=== PATIENT | female | born 1940 | race Caucasian/White ===

== ENCOUNTER 2021-03-01 06:51 | Inpatient (IN) ==
--- NOTE | 2021-03-01 07:12 | Emergency Department Note ---
Impression & Plan GI bleed, Acute blood loss anemia, Acute pulmonary embolism, Elevated troponin ED Provider Note NAME: FARZANEH OTERO AGE: 80 SEX: F : 1940 ARRIVES VIA: Ambulance INFORMANT: Patient ED PROVIDER(S): Dennis Sánchez DO CHIEF COMPLAINT: lightheaded and near syncope HPI: Patient is a 80-year-old female who presents tp the ER for near syncopal event. Patient notes that she got in the shower and got very warm and hot. She felt lightheaded. She fell to the ground/lowered her self down. She did not hit her head or neck. No chest pain or shortness of breath. No nausea, vomiting or diarrhea. No dysuria, urgency, or frequency. No other exacerbating or remitting factors. She does note that this happened yesterday as well while in the shower. She has been getting shortness of breath with exertion for the previous 6 months and has been getting worse. She does not remember ever having a new murmur. ROS: See above HPI for pertinent positives & negatives. A total of 10 systems reviewed and were otherwise negative. PAST MEDICAL HISTORY:See Below PAST SURGICAL HISTORY:See Below FAMILY HISTORY:See Below SOCIAL HISTORY:See Below HOME MEDICATIONS:See Below ALLERGIES:See Below VITALS:See Below PHYSICAL EXAMINATION: GENERAL: Sitting up in bed, alert, well appearing, well nourished, no distress, non-toxic EYE EXAM: normal conjunctiva. PERRL and EOM's grossly intact. OROPHARYNX: no exudate, no erythema, lips, buccal mucosa, and tongue normal and mucous membranes are moist NECK: supple, no nuchal rigidity, no adenopathy, non-tender LUNGS: Clear to auscultation. Normal chest wall mechanics HEART: +YEFRI, S1 normal and S2 normal ABDOMEN: abdomen soft, non-tender, normo-active bowel sounds, no masses, no rebound or guarding. RECTAL: hem + stool UPPER EXTREMITIES: upper extremities are grossly normal. LOWER EXTREMITIES: No pitting edema. NEURO EXAM: Normal sensorium, cranial nerves II-XII grossly intact, normal speech, no gross weakness of arms, no gross weakness of legs. MEDICAL DECISION MAKING: Patient is a 80-year-old female who presents the ER for the above-stated complaint. IV was established blood work was obtained. Labs show no significant leukocytosis but a significant anemia at 7. Unable to find previous hemoglobins. Platelets were low at 92[place] [id number]. BMP with slightly elevated chloride. Troponin was elevated at 1.6. TSH was elevated. UA was clean. Patient was rectally heme positive. CT of the chest was performed and showed PEs. With the heme positive stool and current PEs. Did discuss with the hospitalist. Held on anticoagulation at this time as she will likely need further work-up may benefit from an IVC filter. Patient was updated bedside. Discussed with hospitalist admitted for further work-up. Patient was ordered and given 2 units PRBCs while in the ER. Will defer to the hospitalist for treatment of the PEs as I feel this. At this point to improve the hemoglobin emergently with transfusion prior to placing on any blood thinne rs with a hemoglobin at 7 Triage Nursing notes reviewed. Limited review of prior medical records performed Vital Signs: reviewed and remarkable for no significant abnormalities Differential diagnosis: Differential diagnosis includes etiologies such as vasovagal event, infection, hypoglycemia, electrolyte abnormalities, cardiac sources, intracerebral event, toxicologic, neurologic, as well as others were entertained. ER treatment provided: See below Diagnostics interpreted by me: ECG: Sinus rhythm rate 72 Normal axis No PVCs QTC 435 Cardiac Monitoring: An order was placed for continuous cardiac monitoring. The monitor shows a rate of 70 with sinus rhythm. Laboratory studies: As stated above and show below. Imaging studies: CT PE shows PEs CT abdomen pelvis shows likely metastatic disease Consultation(s): Discussed with Dr. Nichole for further evaluation Procedures: none Critical Care: I have personally spent 33 minutes of critical care time in the direct management of this patient. This includes bedside care, interpretation of diagnostic studies, and testing, discussion with consultants, patient, and family members, and other required patient management activities. This 33 minutes is in excess of all separately billable procedures. Past Med/Surg History Medical History (Updated 03/11/21 @ 09:30 by JUAN Caceres) Altered mental status CKD (chronic kidney disease) stage 3, GFR 30-59 ml/min Dehydration Hyperlipidemia Hypothyroidism (acquired) Hypoxia Palliative care encounter Weakness Surgical History Hx of cataract surgery S/P laser trabeculoplasty of eye Social History Smoking Status: Never smoker Hx Alcohol Use: Yes Hx Substance Use: No Preferred Language: Maltese Communication Ability: Effective marital status: Current Living Situation: Spouse How many Children do You have: 3 Feels Safe at Home: Yes Assistive Devices: Oxygen - Continuous Allergies Allergies Allergy/AdvReac Type Severity Reaction Status Date / Time No Known Allergies Allergy Unverified 03/01/21 07:49 Home Meds Home Medications Medication Instructions Recorded Confirmed B360 Probiotic 1 cap PO QAM 03/01/21 03/01/21 cholecalciferol (vitamin D3) 50 50 mcg PO QAM 03/01/21 03/01/21 mcg (2,000 unit) capsule (Vitamin D3) levothyroxine 75 mcg tablet 75 mcg PO DAILYBB 03/01/21 03/01/21 (Synthroid) lorazepam 1 mg tablet (Ativan) 1 mg SUBLINGUAL UD 03/01/21 03/01/21 pravastatin 10 mg tablet 10 mg PO HS 03/01/21 03/01/21 Results & Data (ED) Vital Signs Vital Signs - 24 hr 03/01/21 06:50 03/01/21 07:11 03/01/21 07:30 Temperature 37.0 C Temperature Source Oral Pulse Rate 71 70 73 Pulse Rate from SpO2 Sensor 70 72 Pulse Rhythm Regular Pulse Strength Normal Respiratory Rate 17 18 20 Respiratory Effort / Characteristics Non-Labored Spontaneous Respiratory Depth Normal Respiratory Pattern Regular Blood Pressure 126/77 126/77 149/72 H Blood Pressure Mean 93 93 97 Blood Pressure Position Lying Pulse Oximetry 99 99 99 Oxygen Delivery Method Room Air Sepsis Recent Fever Within 48 Hours No Sepsis New/Unexplained Change in Mental Status N/A Sepsis Action Taken by Nursing No Action Required 03/01/21 08:00 03/01/21 08:30 03/01/21 09:00 Temperature Temperature Source Pulse Rate 69 69 72 Pulse Rate from SpO2 Sensor 68 69 73 Pulse Rhythm Pulse Strength Respiratory Rate 16 18 16 Respiratory Effort / Characteristics Respiratory Depth Respiratory Pattern Blood Pressure 135/61 139/66 128/60 Blood Pressure Mean 85 90 82 Blood Pressure Position Pulse Oximetry 99 99 99 Oxygen Delivery Method Sepsis Recent Fever Within 48 Hours Sepsis New/Unexplained Change in Mental Status Sepsis Action Taken by Nursing 03/01/21 09:30 03/01/21 09:52 03/01/21 10:00 Temperature Temperature Source Pulse Rate 69 76 72 Pulse Rate from SpO2 Sensor 71 75 71 Pulse Rhythm Pulse Strength Respiratory Rate 18 13 16 Respiratory Effort / Characteristics Respiratory Depth Respiratory Pattern Blood Pressure 135/66 138/67 137/63 Blood Pressure Mean 89 90 87 Blood Pressure Position Pulse Oximetry 99 99 99 Oxygen Delivery Method Sepsis Recent Fever Within 48 Hours Sepsis New/Unexplained Change in Mental Status Sepsis Action Taken by Nursing 03/01/21 10:31 Temperature Temperature Source Pulse Rate 80 Pulse Rate from SpO2 Sensor 80 Pulse Rhythm Pulse Strength Respiratory Rate 19 Respiratory Effort / Characteristics Respiratory Depth Respiratory Pattern Blood Pressure 131/75 Blood Pressure Mean 93 Blood Pressure Position Pulse Oximetry 99 Oxygen Delivery Method Sepsis Recent Fever Within 48 Hours Sepsis New/Unexplained Change in Mental Status Sepsis Action Taken by Nursing Laboratory Data Result diagrams: 03/11/21 05:19 03/11/21 05:19 Lab Results 03/01/21 03/01/21 03/01/21 Range/Units 08:10 08:10 08:10 WBC 8.77 (4.8-10.8) K/uL RBC 2.34 L (4.2-5.4) M/uL Hgb 7.0 L (12.0-16.0) g/dL Hct 21.7 L (37-47) % MCV 92.7 (80-100) fL MCH 29.9 (25-34) pg MCHC 32.3 (32-36) g/dL RDW Std Deviation 48.5 H (36.4-46.3) fL RDW Coeff of Garrett 14.8 H (11.5-14.5) % Plt Count 92 L (130-400) K/uL MPV 9.9 (7.4-10.4) fL Immature Gran % (Auto) 0.2 % Neut % (Auto) 81.2 % Lymph % (Auto) 10.5 % [place] % (Auto) 7.3 % Eos % (Auto) 0.7 % Baso % (Auto) 0.1 % Neut # (Auto) 7.12 H (1.4-6.5) K/uL Lymph # (Auto) 0.92 L (1.2-3.4) K/uL [place] # (Auto) 0.64 H (0.11-0.59) K/uL Eos # (Auto) 0.06 (0-0.5) K/uL Baso # (Auto) 0.01 (0-0.2) K/uL Immature Gran # (Auto) 0.02 (0.00-0.02) K/uL Platelet Estimate Decreased L (Normal) Polychromasia 1+ PT 15.6 H Cancelled (9.0-12.0) Seconds INR 1.6 H Cancelled (0.9-1.1) D-Dimer > 00531 H* (0-500) ug/L FEU Sodium (136-145) mmol/L Potassium (3.5-5.1) mmol/L Chloride (98-107) mmol/L Carbon Dioxide (21-32) mmol/L Anion Gap (3-11) BUN (7-18) mg/dl Creatinine (0.6-1.2) mg/dl Est Cr Clr Drug Dosing ml/min Est GFR ( Amer) ml/min Est GFR (Non-Af Amer) ml/min BUN/Creatinine Ratio (10-20) Glucose (70-99) mg/dl Calcium (8.5-10.1) mg/dl Magnesium (1.8-2.4) mg/dl Total Bilirubin (0.2-1) mg/dl AST (15-37) U/L ALT (12-78) U/L Alkaline Phosphatase (45-117) U/L Troponin I (0-0.045) ng/ml Total Protein (6.4-8.2) gm/dl Albumin (3.4-5.0) gm/dl Globulin (2.5-4.0) gm/dl Albumin/Globulin Ratio (0.9-2) TSH (0.300-4.500) uIu/ml Free T4 (0.8-1.6) ng/dl Urine Color Urine Appearance (Clear) Urine pH (4.5-7.5) Ur Specific [place] (1.000-1.030) Urine Protein (Negative) Urine Glucose (UA) (Negative) Urine Ketones (Negative) Urine Blood (Negative) Urine Nitrite (Negative) Urine Bilirubin (Negative) Urine Urobilinogen (Negative) Ur Leukocyte Esterase (Negative) Urine WBC (Auto) (0-5) /hpf Urine RBC (Auto) (0-4) /hpf U Hyaline Cast (Auto) (0-5) /lpf U Epithel Cells (Auto) (0-5) /lpf Urine Bacteria (Auto) (Negative) COVID-19 Eval Order SARS-CoV-2 (PCR) (Negative) Blood Type Antibody Screen Crossmatch 03/01/21 03/01/21 03/01/21 Range/Units 08:10 09:20 09:20 WBC (4.8-10.8) K/uL RBC (4.2-5.4) M/uL Hgb (12.0-16.0) g/dL Hct (37-47) % MCV (80-100) fL MCH (25-34) pg MCHC (32-36) g/dL RDW Std Deviation (36.4-46.3) fL RDW Coeff of Garrett (11.5-14.5) % Plt Count (130-400) K/uL MPV (7.4-10.4) fL Immature Gran % (Auto) % Neut % (Auto) % Lymph % (Auto) % [place] % (Auto) % Eos % (Auto) % Baso % (Auto) % Neut # (Auto) (1.4-6.5) K/uL Lymph # (Auto) (1.2-3.4) K/uL [place] # (Auto) (0.11-0.59) K/uL Eos # (Auto) (0-0.5) K/uL Baso # (Auto) (0-0.2) K/uL Immature Gran # (Auto) (0.00-0.02) K/uL Platelet Estimate (Normal) Polychromasia PT (9.0-12.0) Seconds INR (0.9-1.1) D-Dimer (0-500) ug/L FEU Sodium 142 (136-145) mmol/L Potassium 5.0 (3.5-5.1) mmol/L Chloride 108 H (98-107) mmol/L Carbon Dioxide 27 (21-32) mmol/L Anion Gap 8.0 (3-11) BUN 24 H (7-18) mg/dl Creatinine 0.94 (0.6-1.2) mg/dl Est Cr Clr Drug Dosing 40.0 ml/min Est GFR ( Amer) 67.3 ml/min Est GFR (Non-Af Amer) 58.1 ml/min BUN/Creatinine Ratio 25.0 H (10-20) Glucose 95 (70-99) mg/dl Calcium 8.4 L (8.5-10.1) mg/dl Magnesium 2.3 (1.8-2.4) mg/dl Total Bilirubin 0.3 (0.2-1) mg/dl AST 48 H (15-37) U/L ALT 41 (12-78) U/L Alkaline Phosphatase 256 H (45-117) U/L Troponin I 1.640 H* (0-0.045) ng/ml Total Protein 5.8 L (6.4-8.2) gm/dl Albumin 2.7 L (3.4-5.0) gm/dl Globulin 3.1 (2.5-4.0) gm/dl Albumin/Globulin Ratio 0.9 (0.9-2) TSH 9.360 H (0.300-4.500) uIu/ml Free T4 1.15 (0.8-1.6) ng/dl Urine Color Yellow Urine Appearance Clear (Clear) Urine pH 7.0 (4.5-7.5) Ur Specific [place] 1.005 (1.000-1.030) Urine Protein Negative (Negative) Urine Glucose (UA) Negative (Negative) Urine Ketones Negative (Negative) Urine Blood Negative (Negative) Urine Nitrite Negative (Negative) Urine Bilirubin Negative (Negative) Urine Urobilinogen Negative (Negative) Ur Leukocyte Esterase 2+ H (Negative) Urine WBC (Auto) 10-30 H (0-5) /hpf Urine RBC (Auto) 0-4 (0-4) /hpf U Hyaline Cast (Auto) 0 (0-5) /lpf U Epithel Cells (Auto) >30 H (0-5) /lpf Urine Bacteria (Auto) Negative (Negative) COVID-19 Eval Order Covid19 at [facility] SARS-CoV-2 (PCR) (Negative) Blood Type Antibody Screen Crossmatch 03/01/21 03/01/21 Range/Units 09:20 10:32 WBC (4.8-10.8) K/uL RBC (4.2-5.4) M/uL Hgb (12.0-16.0) g/dL Hct (37-47) % MCV (80-100) fL MCH (25-34) pg MCHC (32-36) g/dL RDW Std Deviation (36.4-46.3) fL RDW Coeff of Garrett (11.5-14.5) % Plt Count (130-400) K/uL MPV (7.4-10.4) fL Immature Gran % (Auto) % Neut % (Auto) % Lymph % (Auto) % [place] % (Auto) % Eos % (Auto) % Baso % (Auto) % Neut # (Auto) (1.4-6.5) K/uL Lymph # (Auto) (1.2-3.4) K/uL [place] # (Auto) (0.11-0.59) K/uL Eos # (Auto) (0-0.5) K/uL Baso # (Auto) (0-0.2) K/uL Immature Gran # (Auto) (0.00-0.02) K/uL Platelet Estimate (Normal) Polychromasia PT (9.0-12.0) Seconds INR (0.9-1.1) D-Dimer (0-500) ug/L FEU Sodium (136-145) mmol/L Potassium (3.5-5.1) mmol/L Chloride (98-107) mmol/L Carbon Dioxide (21-32) mmol/L Anion Gap (3-11) BUN (7-18) mg/dl Creatinine (0.6-1.2) mg/dl Est Cr Clr Drug Dosing ml/min Est GFR ( Amer) ml/min Est GFR (Non-Af Amer) ml/min BUN/Creatinine Ratio (10-20) Glucose (70-99) mg/dl Calcium (8.5-10.1) mg/dl Magnesium (1.8-2.4) mg/dl Total Bilirubin (0.2-1) mg/dl AST (15-37) U/L ALT (12-78) U/L Alkaline Phosphatase (45-117) U/L Troponin I (0-0.045) ng/ml Total Protein (6.4-8.2) gm/dl Albumin (3.4-5.0) gm/dl Globulin (2.5-4.0) gm/dl Albumin/Globulin Ratio (0.9-2) TSH (0.300-4.500) uIu/ml Free T4 (0.8-1.6) ng/dl Urine Color Urine Appearance (Clear) Urine pH (4.5-7.5) Ur Specific [place] (1.000-1.030) Urine Protein (Negative) Urine Glucose (UA) (Negative) Urine Ketones (Negative) Urine Blood (Negative) Urine Nitrite (Negative) Urine Bilirubin (Negative) Urine Urobilinogen (Negative) Ur Leukocyte Esterase (Negative) Urine WBC (Auto) (0-5) /hpf Urine RBC (Auto) (0-4) /hpf U Hyaline Cast (Auto) (0-5) /lpf U Epithel Cells (Auto) (0-5) /lpf Urine Bacteria (Auto) (Negative) COVID-19 Eval Order SARS-CoV-2 (PCR) NEGATIVE (Negative) Blood Type A Positive Antibody Screen NEGATIVE Crossmatch See Detail Administered Medications Discontinued Medications Acetaminophen (Acetaminophen 325 Mg Tab) 650 mg PO Q6H PRN PRN Reason: Fever/pain Stop: 04/06/21 22:40 Last Admin: 03/09/21 18:24 Dose: 650 mg Documented by: [id number] Admin: 03/08/21 19:26 Dose: 650 mg Documented by: [id number] Admin: 03/08/21 10:13 Dose: 650 mg Documented by: [id number] Gadobutrol (Gadobutrol 65ml Vial) 6 ml IV ONCE ONE Stop: 03/03/21 11:45 Last Admin: 03/03/21 11:44 Dose: 6 ml Documented by: [id number] Glycopyrrolate (Glycopyrrolate 0.2 Mg/Ml Vial) 0.2 mg IV Q3H PRN PRN Reason: secretions Stop: 04/10/21 10:52 Last Admin: 03/11/21 17:24 Dose: 0.2 mg Documented by: [id number] Heparin Sodium/Dextrose (Heparin Iv Adult Wt-Based Standard *No* Bolus Protocol) 1 ea IV Q1H MORRO; Protocol Stop: 03/01/21 21:00 Last Admin: 03/01/21 17:59 Dose: Not Given Documented by: [id number] Admin: 03/01/21 17:53 Dose: Not Given Documented by: [id number] Heparin Sodium/Dextrose (Heparin 00650 Unit/500 Ml D5w) Confirm Administered Dose 25,000 units IV .STK-MED ONE Stop: 03/01/21 17:26 Last Admin: 03/01/21 18:33 Dose: Not Given Documented by: [id number] Sodium Chloride (Nss) 500 mls @ 999 mls/hr IV .Q31M MORRO Stop: 03/01/21 07:45 Last Infusion: 03/01/21 08:21 Dose: 0 mls/hr Documented by: [id number] Admin: 03/01/21 07:36 Dose: 999 mls/hr Documented by: [id number] Heparin Sodium/Dextrose (Heparin Sodium/Dextrose) 25,000 units in 500 mls @ 18 mls/hr IV .Q24H MORRO; Protocol Stop: 03/31/21 18:09 Last Titration: 03/03/21 10:29 Dose: 0 units/hr, 0 mls/hr Documented by: [id number] Cosigned by: [id number] Titration: 03/03/21 06:11 Dose: 0 units/hr, 0 mls/hr Documented by: [id number] Cosigned by: [id number] Admin: 03/02/21 20:29 Dose: 900 units/hr, 18 mls/hr Documented by: [id number] Cosigned by: [id number] Titration: 03/02/21 20:29 Dose: 900 units/hr, 18 mls/hr Documented by: [id number] Cosigned by: [id number] Titration: 03/02/21 01:04 Dose: 900 units/hr, 18 mls/hr Documented by: [id number] Cosigned by: [id number] Admin: 03/01/21 18:23 Dose: 900 units/hr, 18 mls/hr Documented by: [id number] Cosigned by: [id number] Dextrose/Lactated Ringer's (D5w And Lactated Ringers) 1,000 mls @ 60 mls/hr IV .[id number] MORRO Stop: 04/02/21 07:14 Last Infusion: 03/03/21 16:16 Dose: 0 mls/hr Documented by: [id number] Admin: 03/03/21 08:37 Dose: 60 mls/hr Documented by: [id number] Sodium Chloride (Nss 1000ml) 500 mls @ 999 mls/hr IV .Q31M ONE Stop: 03/03/21 09:37 Last Infusion: 03/03/21 09:46 Dose: 0 mls/hr Documented by: [id number] Admin: 03/03/21 09:15 Dose: 999 mls/hr Documented by: [id number] Heparin Sodium/Dextrose (Heparin Sodium/Dextrose) 25,000 units in 500 mls @ 18 mls/hr IV .Q24H MORRO; Protocol Stop: 04/02/21 09:59 Last Titration: 03/11/21 09:10 Dose: 0 units/hr, 0 mls/hr Documented by: [id number] Cosigned by: [id number] Titration: 03/11/21 08:59 Dose: 900 units/hr, 18 mls/hr Documented by: [id number] Cosigned by: [id number] Titration: 03/11/21 07:07 Dose: 900 units/hr, 18 mls/hr Documented by: [id number] Cosigned by: [id number] Titration: 03/10/21 22:30 Dose: 900 units/hr, 18 mls/hr Documented by: [id number] Cosigned by: [id number] Titration: 03/10/21 19:22 Dose: 900 units/hr, 18 mls/hr Documented by: [id number] Cosigned by: [id number] Titration: 03/10/21 19:22 Dose: 900 units/hr, 18 mls/hr Documented by: [id number] Cosigned by: [id number] Admin: 03/10/21 14:55 Dose: 900 units/hr, 18 mls/hr Documented by: [id number] Cosigned by: [id number] Titration: 03/09/21 03:54 Dose: 0 units/hr, 0 mls/hr Documented by: [id number] Cosigned by: [id number] Admin: 03/08/21 00:26 Dose: 1,000 units/hr, 20 mls/hr Documented by: [id number] Cosigned by: [id number] Titration: 03/07/21 23:09 Dose: 1,000 units/hr, 20 mls/hr Documented by: [id number] Cosigned by: [id number] Titration: 03/07/21 19:08 Dose: 1,000 units/hr, 20 mls/hr Documented by: [id number] Cosigned by: [id number] Titration: 03/07/21 14:19 Dose: 1,000 units/hr, 20 mls/hr Documented by: [id number] Cosigned by: [id number] Admin: 03/06/21 21:17 Dose: 950 units/hr, 19 mls/hr Documented by: [id number] Cosigned by: [id number] Titration: 03/06/21 20:12 Dose: 950 units/hr, 19 mls/hr Documented by: [id number] Cosigned by: [id number] Titration: 03/06/21 19:09 Dose: 950 units/hr, 19 mls/hr Documented by: [id number] Cosigned by: [id number] Titration: 03/06/21 07:08 Dose: 950 units/hr, 19 mls/hr Documented by: [id number] Cosigned by: [id number] Titration: 03/05/21 19:22 Dose: 950 units/hr, 19 mls/hr Documented by: [id number] Cosigned by: [id number] Admin: 03/05/21 17:53 Dose: 950 units/hr, 19 mls/hr Documented by: [id number] Cosigned by: [id number] Titration: 03/05/21 17:17 Dose: 950 units/hr, 19 mls/hr Documented by: [id number] Cosigned by: [id number] Admin: 03/05/21 11:54 Dose: Not Given Documented by: [id number] Titration: 03/04/21 19:17 Dose: 950 units/hr, 19 mls/hr Documented by: [id number] Cosigned by: [id number] Admin: 03/04/21 14:58 Dose: 950 units/hr, 19 mls/hr Documented by: [id number] Cosigned by: [id number] Titration: 03/04/21 13:11 Dose: 950 units/hr, 19 mls/hr Documented by: [id number] Cosigned by: [id number] Titration: 03/04/21 08:19 Dose: 950 units/hr, 19 mls/hr Documented by: [id number] Cosigned by: [id number] Titration: 03/04/21 07:14 Dose: 950 units/hr, 19 mls/hr Documented by: [id number] Cosigned by: [id number] Titration: 03/03/21 18:59 Dose: 950 units/hr, 19 mls/hr Documented by: [id number] Cosigned by: [id number] Titration: 03/03/21 16:52 Dose: 950 units/hr, 19 mls/hr Documented by: [id number] Cosigned by: [id number] Admin: 03/03/21 10:32 Dose: 900 units/hr, 18 mls/hr Documented by: [id number] Cosigned by: [id number] Ceftriaxone Sodium 1,000 mg/ (Dextrose) 50 mls @ 100 mls/hr IV Q24H MORRO; Protoc ol Stop: 03/08/21 14:59 Last Infusion: 03/07/21 16:10 Dose: 0 mls/hr Documented by: [id number] Admin: 03/07/21 15:29 Dose: 100 mls/hr Documented by: [id number] Infusion: 03/06/21 16:40 Dose: 0 mls/hr Documented by: [id number] Admin: 03/06/21 15:59 Dose: 100 mls/hr Documented by: [id number] Piperacillin Sod/Tazobactam (Sod 4.5 gm/ Dextrose) 120 mls @ 200 mls/hr IV NOW ONE; Protocol Stop: 03/08/21 15:05 Last Infusion: 03/08/21 15:33 Dose: 0 mls/hr Documented by: [id number] Admin: 03/08/21 14:33 Dose: 200 mls/hr Documented by: [id number] Piperacillin Sod/Tazobactam (Sod 4.5 gm/ Dextrose) 120 mls @ 30 mls/hr IV Q8H MORRO; Protocol Stop: 03/10/21 19:59 Last Admin: 03/10/21 13:12 Dose: Not Given Documented by: [id number] Infusion: 03/10/21 08:16 Dose: 0 mls/hr Documented by: [id number] Admin: 03/10/21 04:45 Dose: 30 mls/hr Documented by: [id number] Infusion: 03/10/21 00:52 Dose: 0 mls/hr Documented by: [id number] Admin: 03/09/21 20:03 Dose: 30 mls/hr Documented by: [id number] Infusion: 03/09/21 16:02 Dose: 0 mls/hr Documented by: [id number] Admin: 03/09/21 11:55 Dose: 30 mls/hr Documented by: [id number] Infusion: 03/09/21 08:15 Dose: 0 mls/hr Documented by: [id number] Admin: 03/09/21 03:54 Dose: 30 mls/hr Documented by: [id number] Infusion: 03/08/21 22:59 Dose: 0 mls/hr Documented by: [id number] Admin: 03/08/21 19:26 Dose: 30 mls/hr Documented by: [id number] Sodium Chloride (Nss 1000ml) 1,000 mls @ 80 mls/hr IV .[id number] MORRO Stop: 04/09/21 12:14 Last Admin: 03/12/21 07:39 Dose: Not Given Documented by: [id number] Infusion: 03/12/21 07:39 Dose: 0 mls/hr Documented by: [id number] Admin: 03/11/21 19:34 Dose: 80 mls/hr Documented by: [id number] Infusion: 03/11/21 19:34 Dose: 80 mls/hr Documented by: [id number] Infusion: 03/11/21 11:25 Dose: 80 mls/hr Documented by: [id number] Infusion: 03/11/21 08:36 Dose: 0 mls/hr Documented by: [id number] Infusion: 03/11/21 04:37 Dose: 80 mls/hr Documented by: [id number] Infusion: 03/11/21 03:38 Dose: 0 mls/hr Documented by: [id number] Admin: 03/11/21 03:37 Dose: 80 mls/hr Documented by: [id number] Infusion: 03/11/21 02:54 Dose: 80 mls/hr Documented by: [id number] Infusion: 03/10/21 21:00 Dose: 80 mls/hr Documented by: [id number] Infusion: 03/10/21 20:00 Dose: 0 mls/hr Documented by: [id number] Admin: 03/10/21 13:23 Dose: 80 mls/hr Documented by: [id number] Potassium Chloride (K Fausto / Wtr) 10 meq in 100 mls @ 100 mls/hr IV Q1H MORRO Stop: 03/10/21 14:29 Last Infusion: 03/10/21 15:43 Dose: 0 mls/hr Documented by: [id number] Admin: 03/10/21 14:40 Dose: 100 mls/hr Documented by: [id number] Infusion: 03/10/21 14:24 Dose: 100 mls/hr Documented by: [id number] Admin: 03/10/21 13:24 Dose: 100 mls/hr Documented by: [id number] Metronidazole (Flagyl) 500 mg in 100 mls @ 100 mls/hr IV Q8H MORRO Stop: 03/12/21 12:29 Last Infusion: 03/11/21 04:37 Dose: 0 mls/hr Documented by: [id number] Admin: 03/11/21 03:37 Dose: 100 mls/hr Documented by: [id number] Infusion: 03/10/21 21:04 Dose: 0 mls/hr Documented by: [id number] Admin: 03/10/21 20:04 Dose: 100 mls/hr Documented by: [id number] Infusion: 03/10/21 15:42 Dose: 0 mls/hr Documented by: [id number] Admin: 03/10/21 14:41 Dose: 100 mls/hr Documented by: [id number] Vancomycin HCl 1,250 mg/ (Sodium Chloride) 275 mls @ 200 mls/hr IV NOW STA Stop: 03/10/21 14:32 Last Infusion: 03/10/21 15:57 Dose: 0 mls/hr Documented by: [id number] Admin: 03/10/21 14:41 Dose: 200 mls/hr Documented by: [id number] Cefepime HCl 2,000 mg/ Syringe 20 mls @ 5 mls/min IV DAILY@1400 [facility]RO Stop: 03/12/21 13:59 Last Admin: 03/10/21 14:41 Dose: 5 mls/min Documented by: [id number] Vancomycin HCl 1,000 mg/ (Sodium Chloride) 270 mls @ 200 mls/hr IV DAILY@0800 [facility]RO; Protocol Stop: 03/13/21 07:29 Last Infusion: 03/11/21 10:25 Dose: 0 mls/hr Documented by: [id number] Admin: 03/11/21 08:35 Dose: 200 mls/hr Documented by: [id number] Lorazepam (Ativan) 1 mg in 2 mls @ 2 mls/min IV Q6H [facility] Stop: 04/10/21 10:59 Last Admin: 03/12/21 16:35 Dose: 2 mls/min Documented by: [id number] Admin: 03/12/21 11:13 Dose: 2 mls/min Documented by: [id number] Admin: 03/12/21 05:35 Dose: 2 mls/min Documented by: [id number] Admin: 03/11/21 23:32 Dose: 2 mls/min Documented by: [id number] Admin: 03/11/21 17:11 Dose: 2 mls/min Documented by: [id number] Admin: 03/11/21 11:15 Dose: 2 mls/min Documented by: [id number] Ioversol (Optiray 320 125ml) 115 ml IV ONCE ONE Stop: 03/01/21 09:17 Last Admin: 03/01/21 09:16 Dose: 115 ml Documented by: [id number] Ioversol (Optiray 320 125ml) 120 ml IV ONCE ONE Stop: 03/03/21 07:17 Last Admin: 03/03/21 07:16 Dose: 120 ml Documented by: [id number] Levothyroxine Sodium (Levothyroxine Sodium 75 Mcg Tablet) 75 mcg PO DAILYBB [facility] Stop: 04/01/21 06:29 Last Admin: 03/11/21 03:38 Dose: Not Given Documented by: [id number] Admin: 03/10/21 06:23 Dose: 75 mcg Documented by: [id number] Admin: 03/09/21 05:46 Dose: 75 mcg Documented by: [id number] Admin: 03/08/21 05:55 Dose: 75 mcg Documented by: [id number] Admin: 03/07/21 05:07 Dose: 75 mcg Documented by: [id number] Admin: 03/06/21 05:09 Dose: 75 mcg Documented by: [id number] Admin: 03/05/21 06:33 Dose: 75 mcg Documented by: [id number] Admin: 03/04/21 07:56 Dose: 75 mcg Documented by: [id number] Admin: 03/03/21 06:30 Dose: Not Given Documented by: [id number] Admin: 03/02/21 06:25 Dose: 75 mcg Documented by: [id number] Miscellaneous (Pending Order [Heparin Drip]) 1 ea N/A Q1H [facility] Stop: 03/31/21 15:59 Last Admin: 03/01/21 18:16 Dose: Not Given Documented by: [id number] Admin: 03/01/21 17:59 Dose: Not Given Documented by: [id number] Morphine Sulfate (Morphine Sulfate 2 Mg/Ml Carp) 2 mg IV Q1H PRN PRN Reason: Pain or air hunger Stop: 03/25/21 10:52 Last Admin: 03/12/21 20:57 Dose: 2 mg Documented by: [id number] Admin: 03/12/21 17:59 Dose: 2 mg Documented by: [id number] Admin: 03/12/21 16:35 Dose: 2 mg Documented by: [id number] Admin: 03/11/21 15:07 Dose: 2 mg Documented by: [id number] Oxycodone HCl (Oxycodone Hcl Ir 5 Mg Tab (Immediate Release)) 5 mg PO Q4H PRN PRN Reason: Pain Stop: 03/21/21 22:40 Last Admin: 03/08/21 23:37 Dose: 5 mg Documented by: [id number] Pravastatin Sodium (Pravastatin Sod 10 Mg Tab) 10 mg PO HS [facility] Stop: 04/02/21 20:59 Last Admin: 03/10/21 20:03 Dose: Not Given Documented by: [id number] Admin: 03/09/21 20:02 Dose: 10 mg Documented by: [id number] Admin: 03/08/21 19:26 Dose: 10 mg Documented by: [id number] Admin: 03/07/21 21:31 Dose: 10 mg Documented by: [id number] Admin: 03/06/21 21:17 Dose: 10 mg Documented by: [id number] Admin: 03/05/21 20:53 Dose: 10 mg Documented by: [id number] Admin: 03/04/21 20:21 Dose: 10 mg Documented by: [id number] Admin: 03/03/21 20:27 Dose: 10 mg Documented by: [id number] Warfarin Sodium (Warfarin Sod 5 Mg Tab) 5 mg PO NOW ONE Stop: 03/05/21 08:39 Last Admin: 03/05/21 09:33 Dose: 5 mg Documented by: [id number] Imaging Data Radiologist's Impression: Head CT 03/01/21 07:[address] DOSE: 720.23 mGy.cm HISTORY: dizzy TECHNIQUE: Multiaxial CT images of the head were performed without the use of intravenous contrast. Automated exposure control was utilized for this study. A dose lowering technique was utilized adhering to the principles of ALARA. Comparison: None. Findings: The paranasal sinuses and mastoid air cells are clear. The calvarium and skull base are intact. The ventricles and sulci are within normal limits. There is no mass, hematoma, midline shift, or acute infarct. Impression: No acute intracranial abnormality. ACT 112: Negative or not required by law. Electronically signed by: Chapin Sparrow M.D. 03/01/2021 8:30 AM Chest X-Ray 03/01/21 07:10 XR chest 1V portable INDICATION: MN ^dizzy. TECHNIQUE: Single frontal radiograph of the chest was obtained. Comparison: None available at the time of this dictation. FINDINGS: No lines and tubes are seen. The cardiomediastinal silhouette is normal. The lungs are clear. No evidence of pleural effusion or pneumothorax. IMPRESSION: No acute chest disease. ACT 112: Negative or not required by law. Electronically signed by: Azael Munoz M.D. 03/01/2021 8:19 AM Chest CTA 03/01/21 09:04 CHEST CTA for PULMONARY ARTERIES CT DOSE: HISTORY: Atypical chest pain. TECHNIQUE: Multiaxial CT images of the chest were performed following the intravenous administration of contrast to evaluate the pulmonary arteries. Maximal intensity projection images were also obtained. A dose lowering technique was utilized adhering to the principles of ALARA. COMPARISON STUDY: None. FINDINGS: No evidence for an aortic dissection. Trace right pleural effusion. No significant pericardial effusion. The heart is normal in size. Multiple filling defects seen within the segmental and subsegmental branches of the right lower lobe and right upper lobe consistent with pulmonary emboli. No evidence for right-sided heart strain. No mediastinal or hilar lymphadenopathy. Normal esophagus. Questionable small lucencies within the spine and sternum which could represent osteopenia. The central airways are patent. A 4 mm nodule within the left upper lobe on image 140. A 4 mm subpleural nodule within the right lung apex posteriorly on image 213. Small peripheral groundglass density within the right lung base on image 80. This may represent a developing pulmonary infarct. Multiple hepatic lesions concerning for metastatic disease. IMPRESSION: 1. Right-sided pulmonary emboli. 2. Small peripheral groundglass density within the right lung base which may represent a developing pulmonary infarct. 3. There are 2 subcentimeter indeterminate pulmonary nodules measure up to 4 mm. Please refer to the chart below for recommended follow-up. 4. Trace right pleural effusion. 5. Multiple hepatic lesions concerning for metastatic disease. Otherwise, please refer to the same day abdomen and pelvis CT for further evaluation of the abdominal structures. Please refer to below summary of Fleischner criteria recommendations for follow- up of incidental CT nodules (Missael Hoover, Guidelines for management of small pulmonary nodules detected on CT scans: A statement from the Fleischner Society, Radiology 237: [phone].) SOLID NODULES Solitary nodule size: <6 mm * Low risk patients: no follow-up needed * high risk patients: optional CT at 12 months Solitary nodule size: 6-8 mm * Low risk patients: follow-up at 6-12 months, then consider further follow-up at 18-24 months * high risk patients: initial follow-up CT at 6-12 months and then at 18-24 months if no change Solitary nodule size: >8 mm * either low or high risk patients - consider follow-up CT at 3 months, and/or CT-PET, and/or biopsy Multiple nodules size: <6 mm * Low risk patients: no routine follow-up * high risk patients: optional CT at 12 months Multiple nodules size: 6-8 mm * Low risk patients: follow-up at 3-6 months, then consider further follow-up at 18-24 months * high risk patients: follow-up at 3-6 months, then at 18-24 months if no change Multiple nodules size: >8 mm * Low risk patients: follow-up at 3-6 months, then consider further follow-up at 18-24 months * high risk patients: follow-up at 3-6 months, then at 18-24 months if no change Note: newly detected indeterminate nodule in persons 35 years of age or older. * Low risk patients: minimal or absent history of smoking and/or other known risk factors * high risk patients: history of smoking or of other known risk factors (e.g. first degree relative with lung cancer, or exposure to asbestos, radon, uranium) * if a nodule up to 8 mm is partly solid or is ground glass further follow-up is required after 24 months to exclude possible slow growing adenocarcinoma (RIYA ) SUBSOLID NODULES Solitary pure ground-glass nodule * nodule size <6 mm - no CT follow-up required * nodule size >=6 mm - follow-up CT at 6-12 months, then every 2 years until 5 years Solitary part-solid nodule * nodule size <6 mm - no CT follow-up required * nodule size >=6 mm - follow-up CT at 3-6 months. If unchanged, and solid component remains <6 mm, then annual follow-up for 5 years Multiple subsolid nodules * nodule size <6 mm - follow-up CT at 3-6 months, consider further follow-up at 2 and 4 years if stable * nodule size >=6 mm - follow-up CT at 3-6 months, subsequent management based on the most suspicious nodule(s) ACT 112: Negative or not required by law. Electronically signed by: Chapin Sparrow M.D. 03/01/2021 10:03 AM Abdomen/Pelvis CT 03/01/21 09:29 CT abd pelvis IV con only CLINICAL INDICATION: MN ^[place] [id number]. TECHNIQUE: Helical axial images of the abdomen and pelvis were obtained and displayed. Automated dose lowering techniques and/or adjustment according to patient size were utilized for this exam. This exam was performed with intravenous contrast. COMPARISON: None available at the time of this dictation. FINDINGS: Lower chest: No acute abnormality Liver: Multiple hypodense liver lesions are seen. Gallbladder and biliary tree: No calcified gallstones. Normal caliber wall. No intra- or extrahepatic biliary ductal dilation. Pancreas: Unremarkable, no focal lesions. Spleen: A tiny wedge-shaped hypodensity in the spleen is compatible with infarct. Adrenals: Unremarkable. Kidneys and ureters: Nonobstructive nephrolithiasis is seen. Bladder: Limited evaluation due to underdistention. Reproductive organs: A calcified fibroid is incidentally noted. Bowel: The appendix is normal. Lymph nodes Retroperitoneal: Unremarkable. Mesenteric: Unremarkable. Pelvic: Unremarkable. Peritoneum: A small amount of free fluid is in the pelvis. Vessels: Atherosclerotic calcifications are seen. Abdominal wall: Unremarkable. Bones: There is bilateral pars defect at L5-S1 with grade 2 anterolisthesis. No sclerotic or lytic lesions are seen. IMPRESSION: 1. Innumerable hypodensities in the liver are compatible with metastatic disease with unknown primary. 2. Tiny splenic infarct. ACT 112: Negative or not required by law. Electronically signed by: Azael Munoz M.D. 03/01/2021 9:59 AM Discharge Plan Visit Data Chief Complaint: Dizziness Stated Complaint: LIGHTHEADED;WEAKNESS;FALL;BILAT FOOT PAIN ED Provider: Dennis Sánchez Discharge Problem: GI bleed, Acute blood loss anemia, Acute pulmonary embolism, Elevated troponin Patient Disposition: Admitted As Inpatient Discharge Instructions Interventions: ED Discharge Assessment Last Done: 03/01/21 19:59 Discharge Problem: GI bleed Qualifiers: GI bleed type/associated pathology: unspecified gastrointestinal hemorrhage type Qualified Code(s): K92.2 - Gastrointestinal hemorrhage, unspecified Acute pulmonary embolism Qualifiers: Pulmonary embolism type: unspecified Acute cor pulmonale presence: unspecified Qualified Code(s): I26.99 - Other pulmonary embolism without acute cor pulmonale
[2021-03-01] MEDS ORDERED: SODIUM CHLORIDE 0.9% 500 ML IV SCH (07:15)
--- NOTE | 2021-03-01 08:21 | XRay Report ---
XR chest 1V portable INDICATION: MN ^dizzy. TECHNIQUE: Single frontal radiograph of the chest was obtained. Comparison: None available at the time of this dictation. FINDINGS: No lines and tubes are seen. The cardiomediastinal silhouette is normal. The lungs are clear. No evid ence of pleural effusion or pneumothorax. IMPRESSION: No acute chest disease. ACT 112: Negative or not required by law. Electronically signed by: Azael Munoz M.D. 03/01/2021 8:19 AM
--- NOTE | 2021-03-01 08:31 | CT Scan Report ---
HEAD CT NONCONTRAST CT DOSE: 720.23 mGy.cm HISTORY: dizzy TECHNIQUE: Multiaxial CT images of the head were performed without the use of intravenous contrast. A utomated exposure control was utilized for this study. A dose lowering technique was utilized adheri ng to the principles of ALARA. Comparison: None. Findings: The paranasal sinuses and mastoid air cells are clear. The calvarium and skull base are int act. The ventricles and sulci are within normal limits. There is no mass, hematoma, midline shift, or acute infarct. Impression: No acute intracranial abnormality. ACT 112: Negative or not required by law. Electronically signed by: Chapin Sparrow M.D. 03/01/2021 8:30 AM
[2021-03-01 08:35] LABS: Hematocrit (blood only) 21.7 % (37-47); Mean Corpuscular Hemoglobin 29.9 pg (25-34); Mean Corpuscular Hgb Conc 32.3 g/dL (32-36); Mean Corpuscular Volume 92.7 fL (80-100); RDW Coefficient of Variation 14.8 % (11.5-14.5); RDW Standard Deviation 48.5 fL (36.4-46.3); Red Blood Count 2.34 M/uL (4.2-5.4); White Blood Count 8.77 K/uL (4.8-10.8)
[2021-03-01 08:37] LABS: INR 1.6 (0.9-1.1); Prothrombin Time 15.6 Seconds (9.0-12.0)
[2021-03-01 08:41] LABS: Albumin Level 2.7 gm/dl (3.4-5.0); Calcium 8.4 mg/dl (8.5-10.1); Est GFR (African American) 67.3 ml/min; Est GFR (Non-African American) 58.1 ml/min; Magnesium 2.3 mg/dl (1.8-2.4)
[2021-03-01 08:44] LABS: Basophils # (auto) 0.01 K/uL (0-0.2); Basophils % (auto) 0.1 %; Eosinophils # (auto) 0.06 K/uL (0-0.5); Eosinophils % (auto) 0.7 %; Immature Granulocytes # (auto) 0.02 K/uL (0.00-0.02); Immature Granulocytes % (auto) 0.2 %; Lymphocytes # (auto) 0.92 K/uL (1.2-3.4); Lymphocytes % (auto) 10.5 %; Mean Platelet Volume 9.9 fL (7.4-10.4); Monocytes # (auto) 0.64 K/uL (0.11-0.59); Monocytes % (auto) 7.3 %; Neutrophils # (auto) 7.12 K/uL (1.4-6.5); Neutrophils % (auto) 81.2 %; Platelet Count 92 K/uL (130-400); Platelet Estimate Decreased (Normal); Polychromasia 1+
[2021-03-01 08:55] LABS: D Dimer > 35200 ug/L FEU (0-500)
[2021-03-01 09:05] LABS: Albumin Globulin Ratio 0.9 (0.9-2); Bilirubin,Total 0.3 mg/dl (0.2-1); Globulin 3.1 gm/dl (2.5-4.0); Thyroid Stimulating Hormone 9.36 uIu/ml (0.300-4.500); Total Protein 5.8 gm/dl (6.4-8.2); Troponin I 1.64 ng/ml (0-0.045)
[2021-03-01] MEDS ORDERED: OPTIRAY 320 125ml IV ONE (09:16)
[2021-03-01 09:31] LABS: T4 Free Thyroxine 1.15 ng/dl (0.8-1.6)
[2021-03-01 09:45] LABS: Appearance Urine Clear (Clear); Bacteria Urine Automated Negative (Negative); Bilirubin Urine Negative (Negative); Blood Urine Negative (Negative); Cast Urine Automated 0 /lpf (0-5); Color Urine Yellow; Epithelial Cell Urine Auto >30 /lpf (0-5); Glucose Urine UA Negative (Negative); Ketones Urine Negative (Negative); Leukocyte Esterase Urine 2+ (Negative); Nitrite Urine Negative (Negative); Protein Urine Negative (Negative); RBC Urine Automated 0-4 /hpf (0-4); Specific Gravity Urine 1.005 (1.000-1.030); Urobilinogen Urine Negative (Negative)
--- NOTE | 2021-03-01 10:00 | CT Scan Report ---
CT abd pelvis IV con only CLINICAL INDICATION: MN ^[place] [id number]. TECHNIQUE: Helical axial images of the abdomen and pelvis were obtained and displayed. Automated dose lowering techniques and/or adjustment according to patient size were utilized for this exam. This e xam was performed with intravenous contrast. COMPARISON: None available at the time of this dictation. FINDINGS: Lower chest: No acute abnormality Liver: Multiple hypodense liver lesions are seen. Gallbladder and biliary tree: No calcified gallstones. Normal caliber wall. No intra- or extrahepatic biliary ductal dilation. Pancreas: Unremarkable, no focal lesions. Spleen: A tiny wedge-shaped hypodensity in the spleen is compatible with infarct. Adrenals: Unremarkable. Kidneys and ureters: Nonobstructive nephrolithiasis is seen. Bladder: Limited evaluation due to underdistention. Reproductive organs: A calcified fibroid is incidentally noted. Bowel: The appendix is normal. Lymph nodes Retroperitoneal: Unremarkable. Mesenteric: Unremarkable. Pelvic: Unremarkable. Peritoneum: A small amount of free fluid is in the pelvis. Vessels: Atherosclerotic calcifications are seen. Abdominal wall: Unremarkable. Bones: There is bilateral pars defect at L5-S1 with grade 2 anterolisthesis. No sclerotic or lytic le sions are seen. IMPRESSION: 1. Innumerable hypodensities in the liver are compatible with metastatic disease with unknown primar y. 2. Tiny splenic infarct. ACT 112: Negative or not required by law. Electronically signed by: Azael Munoz M.D. 03/01/2021 9:59 AM
--- NOTE | 2021-03-01 10:04 | CT Scan Report ---
CHEST CTA for PULMONARY ARTERIES CT DOSE: HISTORY: Atypical chest pain. TECHNIQUE: Multiaxial CT images of the chest were performed following the intravenous administration of contrast to evaluate the pulmonary arteries. Maximal intensity projection images were also obtaine d. A dose lowering technique was utilized adhering to the principles of ALARA. COMPARISON STUDY: None. FINDINGS: No evidence for an aortic dissection. Trace right pleural effusion. No significant pericard ial effusion. The heart is normal in size. Multiple filling defects seen within the segmental and sub segmental branches of the right lower lobe and right upper lobe consistent with pulmonary emboli. No evidence for right-sided heart strain. No mediastinal or hilar lymphadenopathy. Normal esophagus. Que stionable small lucencies within the spine and sternum which could represent osteopenia. The central airways are patent. A 4 mm nodule within the left upper lobe on image 140. A 4 mm subpleural nodule w ithin the right lung apex posteriorly on image 213. Small peripheral groundglass density within the r ight lung base on image 80. This may represent a developing pulmonary infarct. Multiple hepatic lesio ns concerning for metastatic disease. IMPRESSION: 1. Right-sided pulmonary emboli. 2. Small peripheral groundglass density within the right lung base which may represent a developing p ulmonary infarct. 3. There are 2 subcentimeter indeterminate pulmonary nodules measure up to 4 mm. Please refer to the chart below for recommended follow-up. 4. Trace right pleural effusion. 5. Multiple hepatic lesions concerning for metastatic disease. Otherwise, please refer to the same da y abdomen and pelvis CT for further evaluation of the abdominal structures. Please refer to below summary of Fleischner criteria recommendations for follow-up of incidental CT n odules (Missael Hoover, Guidelines for management of small pulmonary nodules detected on CT scans: A sta tement from the Fleischner Society, Radiology 237: [phone].) SOLID NODULES Solitary nodule size: <6 mm * Low risk patients: no follow-up needed * high risk patients: optional CT at 12 months Solitary nodule size: 6-8 mm * Low risk patients: follow-up at 6-12 months, then consider further follow-up at 18-24 months * high risk patients: initial follow-up CT at 6-12 months and then at 18-24 months if no change Solitary nodule size: >8 mm * either low or high risk patients - consider follow-up CT at 3 months, and/or CT-PET, and/or biopsy Multiple nodules size: <6 mm * Low risk patients: no routine follow-up * high risk patients: optional CT at 12 months Multiple nodules size: 6-8 mm * Low risk patients: follow-up at 3-6 months, then consider further follow-up at 18-24 months * high risk patients: follow-up at 3-6 months, then at 18-24 months if no change Multiple nodules size: >8 mm * Low risk patients: follow-up at 3-6 months, then consider further follow-up at 18-24 months * high risk patients: follow-up at 3-6 months, then at 18-24 months if no change Note: newly detected indeterminate nodule in persons 35 years of age or older. * Low risk patients: minimal or absent history of smoking and/or other known risk factors * high risk patients: history of smoking or of other known risk factors (e.g. first degree relative with lung cancer, or exposure to asbestos, radon, uranium) * if a nodule up to 8 mm is partly solid or is ground glass further follow-up is required after 24 m onths to exclude possible slow growing adenocarcinoma (RIYA) SUBSOLID NODULES Solitary pure ground-glass nodule * nodule size <6 mm - no CT follow-up required * nodule size >=6 mm - follow-up CT at 6-12 months, then every 2 years until 5 years Solitary part-solid nodule * nodule size <6 mm - no CT follow-up required * nodule size >=6 mm - follow-up CT at 3-6 months. If unchanged, and solid component remains <6 mm, then annual follow-up for 5 years Multiple subsolid nodules * nodule size <6 mm - follow-up CT at 3-6 months, consider further follow-up at 2 and 4 years if sta ble * nodule size >=6 mm - follow-up CT at 3-6 months, subsequent management based on the most suspiciou s nodule(s) ACT 112: Negative or not required by law. Electronically signed by: Chapin Sparrow M.D. 03/01/2021 10:03 AM
[2021-03-01] MEDS ORDERED: SODIUM CHLORIDE 0.9% 250 ML IV PRN (10:11)
--- NOTE | 2021-03-01 10:50 | History & Physical Report ---
Date of Service March 01, 2021 Assessment & Plan (1) GI bleed: Plan: -Patient denies any history of GI bleed, however reports some blood in the shower about a month ago -At that time did not report to anyone besides her -Patient never had colonoscopy due to prep -Hemoccult stool positive in ED GI contacted Aware of conversation with pulmonology, starting IV heparin after blood transfusion -Okay to eat today, likely will start prep tomorrow for colonoscopy Abnormal CT scan -Multiple lesions in liver, concerning for possible metastatic/malignant process Patient and daughter updated at the bedside (2) Acute blood loss anemia: Plan: -Hemoglobin 7 -Per history, likely acute on chronic, possibly due to underlying cancer -2 Units of PRBCs ordered -Continue to closely monitor H&H and hemodynamic status (3) Acute pulmonary embolism: Plan: -Discussed findings with pulmonology, Dr. Banegas -Recommends to transfuse 2 units of blood, then start IV heparin without bolus -Continue to closely monitor for any GI bleed (4) Elevated troponin: Plan: - likely secondary to above -Patient has no chest pain and no history of chest pain -We will obtain echocardiogram (5) Elevated INR: Plan: - secondary to underlying process (as above) -Continue to closely monitor INR Hypothyroidism Continue levothyroxine CKD stage III Monitor kidney function while inpatient Hyperlipidemia -Hold statin for now Code: DNR/DNI -discussed with the patient at the bedside History of Present Illness Chief Complaint: Near syncope, dizziness Primary Care Provider: Jax López DO Patient is a 80-year-old female with history of hyperlipidemia, hypothyroidism, CKD stage III, who presented today at urgent care center due to shortness of breath, dizziness, weakness especially with exertion for several months. Today she was showering, and became quite lightheaded, lowered herself, and then her had to help her to bed. She denies hitting anything such as her head or anything in her body. About a month ago, she reports she was showering and noticed blood, thought it looked like a menstrual period, however she only mentioned it to her and not to any physician. She denies seeing any blood when having bowel movements. She also reports never having a colonoscopy, as she did not want to do prep. In the ED, evaluation significant for anemia with hemoglobin of 7, platelets 92, stool heme positive. In addition D-dimer over 35,000, and CT PE was obtained and confirmed right-sided pulmonary embolism with possible pulmonary infarct. INR elevated at 1.6 and troponin elevated at 1.6. CT abdomen significant for numerous lesions in liver concerning for metastatic disease. Patient has no prior history of cancer. There was also small splenic infarct noted on PET/CT. EKG showing sinus rhythm. 2 units of PRBCs ordered in ED. Patient's daughter arrived to ED room, and I was able to update her. ROS: Currently patient is alert oriented answering questions appropriately. She denies any chest pain or any history of chest pain. Shortness of breath on exertion, currently however has no shortness of breath and breathing comfortably on room air. No abdominal pain. No nausea vomiting. Denies any diarrhea. Allergies Allergy/AdvReac Type Severity Reaction Status Date / Time No Known Allergies Allergy Unverified 03/01/21 07:49 Home Medications Medication Instructions Recorded Confirmed Type B360 Probiotic 1 cap PO QAM 03/01/21 03/01/21 History cholecalciferol (vitamin D3) 50 50 mcg PO QAM 03/01/21 03/01/21 History mcg (2,000 unit) capsule (Vitamin D3) levothyroxine 75 mcg tablet 75 mcg PO DAILYBB 03/01/21 03/01/21 History (Synthroid) lorazepam 1 mg tablet (Ativan) 1 mg SUBLINGUAL UD 03/01/21 03/01/21 History pravastatin 10 mg tablet 10 mg PO HS 03/01/21 03/01/21 History Past Med/Surg History Medical History (Updated 03/01/21 @ 14:20 by Dennis Sánchez DO) CKD (chronic kidney disease) stage 3, GFR 30-59 ml/min Hyperlipidemia Hypothyroidism (acquired) Surgical History (Updated 03/01/21 @ 11:09 by Chris Murphy MD) Hx of cataract surgery S/P laser trabeculoplasty of eye Social History Smoking Status: Never smoker Hx Alcohol Use: Yes Hx Substance Use: No Preferred Language: Japanese Communication Ability: Effective Current Living Situation: Spouse Feels Safe at Home: Yes Safety Concerns: Feels Safe At This Time Assistive Devices: Glasses Review of Systems Review of Systems: All systems reviewed & are unremarkable except as noted in HPI & below Physical Exam Constitutional: WD/WN, vitals as above in NAD Eyes: PERRL, conjunctivae normal, anicteric sclerae ENMT: external ear and nose normal, oropharynx normal Neck: normal visual inspection Respiratory: normal respiratory effort, lungs clear to auscultation Cardiovascular: RRR, no murmur, no edema Chest (Breasts): Chest: normal inspection of chest Gastrointestinal (Abdomen): Percussion/Palpation: abdomen soft; abdomen nontender, no guarding and abdomen not rigid + normal bowel sounds Musculoskeletal: no cyanosis or clubbing, extremities motor strength 5/5 Skin: no rashes, warm and dry Neurologic: PERRL, EOMI, accommodation nl, no face palsy, no dysarthria Psychiatric: A+Ox3, euthymic affect Genitourinary: no CVA tenderness Lymphatic: no lymphedema Results & Data Results & Data ([facility]) Vital Signs (Past 12 Hours) Vital Signs Temp Pulse Resp BP Pulse Ox 03/01/21 09:30 69 18 135/66 99 03/01/21 09:00 72 16 128/60 99 03/01/21 08:30 69 18 139/66 99 03/01/21 08:00 69 16 135/61 99 03/01/21 07:30 73 20 149/72 H 99 03/01/21 07:11 70 18 126/77 99 03/01/21 06:50 37.0 C 71 17 126/77 99 Laboratory Results 03/01/21 03/01/21 03/01/21 Range/Units 09:20 09:20 09:20 WBC (4.8-10.8) K/uL RBC (4.2-5.4) M/uL Hgb (12.0-16.0) g/dL Hct (37-47) % MCV (80-100) fL MCH (25-34) pg MCHC (32-36) g/dL RDW Std Deviation (36.4-46.3) fL RDW Coeff of Garrett (11.5-14.5) % Plt Count (130-400) K/uL MPV (7.4-10.4) fL Immature Gran % (Auto) % Neut % (Auto) % Lymph % (Auto) % [place] % (Auto) % Eos % (Auto) % Baso % (Auto) % Neut # (Auto) (1.4-6.5) K/uL Lymph # (Auto) (1.2-3.4) K/uL [place] # (Auto) (0.11-0.59) K/uL Eos # (Auto) (0-0.5) K/uL Baso # (Auto) (0-0.2) K/uL Immature Gran # (Auto) (0.00-0.02) K/uL Platelet Estimate (Normal) Polychromasia PT (9.0-12.0) Seconds INR (0.9-1.1) D-Dimer (0-500) ug/L FEU Sodium (136-145) mmol/L Potassium (3.5-5.1) mmol/L Chloride (98-107) mmol/L Carbon Dioxide (21-32) mmol/L Anion Gap (3-11) BUN (7-18) mg/dl Creatinine (0.6-1.2) mg/dl Est Cr Clr Drug Dosing ml/min Est GFR ( Amer) ml/min Est GFR (Non-Af Amer) ml/min BUN/Creatinine Ratio (10-20) Glucose (70-99) mg/dl Calcium (8.5-10.1) mg/dl Magnesium (1.8-2.4) mg/dl Total Bilirubin (0.2-1) mg/dl AST (15-37) U/L ALT (12-78) U/L Alkaline Phosphatase (45-117) U/L Troponin I (0-0.045) ng/ml Total Protein (6.4-8.2) gm/dl Albumin (3.4-5.0) gm/dl Globulin (2.5-4.0) gm/dl Albumin/Globulin Ratio (0.9-2) TSH (0.300-4.500) uIu/ml Free T4 (0.8-1.6) ng/dl Urine Color Yellow Urine Appearance Clear (Clear) Urine pH 7.0 (4.5-7.5) Ur Specific [place] 1.005 (1.000-1.030) Urine Protein Negative (Negative) Urine Glucose (UA) Negative (Negative) Urine Ketones Negative (Negative) Urine Blood Negative (Negative) Urine Nitrite Negative (Negative) Urine Bilirubin Negative (Negative) Urine Urobilinogen Negative (Negative) Ur Leukocyte Esterase 2+ H (Negative) Urine WBC (Auto) 10-30 H (0-5) /hpf Urine RBC (Auto) 0-4 (0-4) /hpf U Hyaline Cast (Auto) 0 (0-5) /lpf U Epithel Cells (Auto) >30 H (0-5) /lpf Urine Bacteria (Auto) Negative (Negative) COVID-19 Eval Order Covid19 at [facility] SARS-CoV-2 (PCR) NEGATIVE (Negative) 03/01/21 03/01/21 03/01/21 Range/Units 08:10 08:10 08:10 WBC 8.77 (4.8-10.8) K/uL RBC 2.34 L (4.2-5.4) M/uL Hgb 7.0 L (12.0-16.0) g/dL Hct 21.7 L (37-47) % MCV 92.7 (80-100) fL MCH 29.9 (25-34) pg MCHC 32.3 (32-36) g/dL RDW Std Deviation 48.5 H (36.4-46.3) fL RDW Coeff of Garrett 14.8 H (11.5-14.5) % Plt Count 92 L (130-400) K/uL MPV 9.9 (7.4-10.4) fL Immature Gran % (Auto) 0.2 % Neut % (Auto) 81.2 % Lymph % (Auto) 10.5 % [place] % (Auto) 7.3 % Eos % (Auto) 0.7 % Baso % (Auto) 0.1 % Neut # (Auto) 7.12 H (1.4-6.5) K/uL Lymph # (Auto) 0.92 L (1.2-3.4) K/uL [place] # (Auto) 0.64 H (0.11-0.59) K/uL Eos # (Auto) 0.06 (0-0.5) K/uL Baso # (Auto) 0.01 (0-0.2) K/uL Immature Gran # (Auto) 0.02 (0.00-0.02) K/uL Platelet Estimate Decreased L (Normal) Polychromasia 1+ PT Cancelled (9.0-12.0) Seconds INR Cancelled (0.9-1.1) D-Dimer (0-500) ug/L FEU Sodium 142 (136-145) mmol/L Potassium 5.0 (3.5-5.1) mmol/L Chloride 108 H (98-107) mmol/L Carbon Dioxide 27 (21-32) mmol/L Anion Gap 8.0 (3-11) BUN 24 H (7-18) mg/dl Creatinine 0.94 (0.6-1.2) mg/dl Est Cr Clr Drug Dosing 40.0 ml/min Est GFR ( Amer) 67.3 ml/min Est GFR (Non-Af Amer) 58.1 ml/min BUN/Creatinine Ratio 25.0 H (10-20) Glucose 95 (70-99) mg/dl Calcium 8.4 L (8.5-10.1) mg/dl Magnesium 2.3 (1.8-2.4) mg/dl Total Bilirubin 0.3 (0.2-1) mg/dl AST 48 H (15-37) U/L ALT 41 (12-78) U/L Alkaline Phosphatase 256 H (45-117) U/L Troponin I 1.640 H* (0-0.045) ng/ml Total Protein 5.8 L (6.4-8.2) gm/dl Albumin 2.7 L (3.4-5.0) gm/dl Globulin 3.1 (2.5-4.0) gm/dl Albumin/Globulin Ratio 0.9 (0.9-2) TSH 9.360 H (0.300-4.500) uIu/ml Free T4 1.15 (0.8-1.6) ng/dl Urine Color Urine Appearance (Clear) Urine pH (4.5-7.5) Ur Specific [place] (1.000-1.030) Urine Protein (Negative) Urine Glucose (UA) (Negative) Urine Ketones (Negative) Urine Blood (Negative) Urine Nitrite (Negative) Urine Bilirubin (Negative) Urine Urobilinogen (Negative) Ur Leukocyte Esterase (Negative) Urine WBC (Auto) (0-5) /hpf Urine RBC (Auto) (0-4) /hpf U Hyaline Cast (Auto) (0-5) /lpf U Epithel Cells (Auto) (0-5) /lpf Urine Bacteria (Auto) (Negative) COVID-19 Eval Order SARS-CoV-2 (PCR) (Negative) 03/01/21 Range/Units 08:10 WBC (4.8-10.8) K/uL RBC (4.2-5.4) M/uL Hgb (12.0-16.0) g/dL Hct (37-47) % MCV (80-100) fL MCH (25-34) pg MCHC (32-36) g/dL RDW Std Deviation (36.4-46.3) fL RDW Coeff of Garrett (11.5-14.5) % Plt Count (130-400) K/uL MPV (7.4-10.4) fL Immature Gran % (Auto) % Neut % (Auto) % Lymph % (Auto) % [place] % (Auto) % Eos % (Auto) % Baso % (Auto) % Neut # (Auto) (1.4-6.5) K/uL Lymph # (Auto) (1.2-3.4) K/uL [place] # (Auto) (0.11-0.59) K/uL Eos # (Auto) (0-0.5) K/uL Baso # (Auto) (0-0.2) K/uL Immature Gran # (Auto) (0.00-0.02) K/uL Platelet Estimate (Normal) Polychromasia PT 15.6 H (9.0-12.0) Seconds INR 1.6 H (0.9-1.1) D-Dimer > 60791 H* (0-500) ug/L FEU Sodium (136-145) mmol/L Potassium (3.5-5.1) mmol/L Chloride (98-107) mmol/L Carbon Dioxide (21-32) mmol/L Anion Gap (3-11) BUN (7-18) mg/dl Creatinine (0.6-1.2) mg/dl Est Cr Clr Drug Dosing ml/min Est GFR ( Amer) ml/min Est GFR (Non-Af Amer) ml/min BUN/Creatinine Ratio (10-20) Glucose (70-99) mg/dl Calcium (8.5-10.1) mg/dl Magnesium (1.8-2.4) mg/dl Total Bilirubin (0.2-1) mg/dl AST (15-37) U/L ALT (12-78) U/L Alkaline Phosphatase (45-117) U/L Troponin I (0-0.045) ng/ml Total Protein (6.4-8.2) gm/dl Albumin (3.4-5.0) gm/dl Globulin (2.5-4.0) gm/dl Albumin/Globulin Ratio (0.9-2) TSH (0.300-4.500) uIu/ml Free T4 (0.8-1.6) ng/dl Urine Color Urine Appearance (Clear) Urine pH (4.5-7.5) Ur Specific [place] (1.000-1.030) Urine Protein (Negative) Urine Glucose (UA) (Negative) Urine Ketones (Negative) Urine Blood (Negative) Urine Nitrite (Negative) Urine Bilirubin (Negative) Urine Urobilinogen (Negative) Ur Leukocyte Esterase (Negative) Urine WBC (Auto) (0-5) /hpf Urine RBC (Auto) (0-4) /hpf U Hyaline Cast (Auto) (0-5) /lpf U Epithel Cells (Auto) (0-5) /lpf Urine Bacteria (Auto) (Negative) COVID-19 Eval Order SARS-CoV-2 (PCR) (Negative) Diagnostic Findings CTA chest IMPRESSION: 1. Right-sided pulmonary emboli. 2. Small peripheral groundglass density within the right lung base which may represent a developing pulmonary infarct. 3. There are 2 subcentimeter indeterminate pulmonary nodules measure up to 4 mm. Please refer to the chart below for recommended follow-up. 4. Trace right pleural effusion. 5. Multiple hepatic lesions concerning for metastatic disease. Otherwise, please refer to the same day abdomen and pelvis CT for further evaluation of the abdominal structures. CT Abdomen/pelvis IMPRESSION: 1. Innumerable hypodensities in the liver are compatible with metastatic disease with unknown primary. 2. Tiny splenic infarct. CXR IMPRESSION: No acute chest disease. CT head Impression: No acute intracranial abnormality. ECG Additional Comments: NSR, HR 72 Code Status & VTE Plan VTE Prophylaxis Plan VTE Prophylaxis will be ordered: Yes
[2021-03-01 17:16] LABS: Hematocrit (blood only) 29.8 % (37-47); Hemoglobin 9.5 g/dL (12.0-16.0); Mean Corpuscular Hgb Conc 31.9 g/dL (32-36); Mean Corpuscular Volume 90.9 fL (80-100); RDW Coefficient of Variation 14.7 % (11.5-14.5); Red Blood Count 3.28 M/uL (4.2-5.4); White Blood Count 9.58 K/uL (4.8-10.8)
[2021-03-01 17:25] LABS: INR 1.5 (0.9-1.1); Partial Thromboplastin Ratio 1.2; Partial Thromboplastin Time 31.2 Seconds (21.0-31.0); Prothrombin Time 14.3 Seconds (9.0-12.0)
[2021-03-01] MEDS ORDERED: HEPARIN 25000 UNIT/500 ML D5W IV ONE (17:25)
[2021-03-01 17:32] LABS: Mean Platelet Volume 10.2 fL (7.4-10.4); Platelet Count 94 K/uL (130-400)
[2021-03-01 17:39] LABS: Albumin Level 2.6 gm/dl (3.4-5.0); BUN Creatinine Ratio 23.5 (10-20); Calcium 8.2 mg/dl (8.5-10.1); Creatinine Clr Calc Pharmacy 42.9 ml/min; Est GFR (African American) 72.9 ml/min; Est GFR (Non-African American) 62.9 ml/min; Potassium 4.4 mmol/L (3.5-5.1)
[2021-03-01 17:42] LABS: Albumin Globulin Ratio 0.8 (0.9-2); Bilirubin,Total 0.5 mg/dl (0.2-1); Globulin 3.3 gm/dl (2.5-4.0); Total Protein 5.9 gm/dl (6.4-8.2)
[2021-03-01] MEDS: Heparin IV Adult Wt-Based Standard *NO* Bolus Protocol IV SCH ×2 (17:53→17:59)
[2021-03-01] MEDS: [UNRECOGNIZED DRUG - OTHER] SCH ×2 (17:59→18:16)
[2021-03-01] MEDS: HEPARIN SODIUM/DEXTROSE 25,000 UNITS/500 ML BAG IV SCH (18:23)
--- NOTE | 2021-03-01 19:58 | Electrocardiogram Report ---
Test Reason : Blood Pressure : / mmHG Vent. Rate : 072 BPM Atrial Rate : 072 BPM P-R Int : 126 ms QRS Dur : 088 ms QT Int : 398 ms P-R-T Axes : 083 004 055 degrees QTc Int : 435 ms Normal sinus rhythm Normal ECG No previous ECGs available Confirmed by Edgar Cummins ([id number]) on 03/01/2021 7:58:17 PM Referred By: Confirmed By:Edgar Cummins
[2021-03-02 00:48] LABS: Partial Thromboplastin Ratio 2.1
[2021-03-02 00:49] LABS: Partial Thromboplastin Time 55.5 Seconds (21.0-31.0)
[2021-03-02] MEDS: LEVOTHYROXINE SODIUM 75 MCG TABLET PO SCH (06:25)
[2021-03-02 07:04] LABS: Hematocrit (blood only) 29.1 % (37-47); Hemoglobin 9.3 g/dL (12.0-16.0); Mean Corpuscular Hemoglobin 28.4 pg (25-34); Mean Platelet Volume 9.7 fL (7.4-10.4); Platelet Count 106 K/uL (130-400); RDW Coefficient of Variation 15.3 % (11.5-14.5); RDW Standard Deviation 48.7 fL (36.4-46.3); Red Blood Count 3.27 M/uL (4.2-5.4); White Blood Count 9.76 K/uL (4.8-10.8)
--- NOTE | 2021-03-02 07:09 | Ultrasound Report ---
US venous doppler LE BI INDICATION: MN ^r/o DVT. COMPARISON: None available at the time of this dictation. TECHNIQUE: Bilateral lower extremity real-time compression venous ultrasound with Color Doppler imagi ng. Utilizing real-time ultrasonic imaging multiple real time high-resolution ultrasonic images with comp ression and noncompression maneuvers of the deep venous system in addition to color doppler imaging w ere performed from the common femoral vein through the proximal calf veins. FINDINGS: The venous thrombosis is noted bilaterally. On the left, there is an acute appearing occlusive thromb us in the popliteal vein, posterior tibial vein, and peroneal vein. A chronic appearing occlusive thr ombus is in the superficial femoral vein, extending from the proximal to the distal aspect. On the right, acute appearing deep venous thrombus is seen in the popliteal vein, posterior tibial ve in, and peroneal vein. Impression: Bilateral deep venous thrombus as above. ACT 112: Negative or not required by law. Electronically signed by: Azael Munoz M.D. 03/02/2021 7:08 AM
[2021-03-02 07:32] LABS: INR 1.2 (0.9-1.1); Prothrombin Time 11.7 Seconds (9.0-12.0)
[2021-03-02 07:36] LABS: Albumin Level 2.4 gm/dl (3.4-5.0); BUN Creatinine Ratio 23.6 (10-20); Calcium 7.9 mg/dl (8.5-10.1); Creatinine Clr Calc Pharmacy 47.2 ml/min; Est GFR (African American) 81.8 ml/min; Est GFR (Non-African American) 70.6 ml/min; Magnesium 2.2 mg/dl (1.8-2.4)
[2021-03-02 07:39] LABS: Albumin Globulin Ratio 0.7 (0.9-2); Bilirubin,Total 0.6 mg/dl (0.2-1); Globulin 3.3 gm/dl (2.5-4.0); Phosphorus 2.4 mg/dl (2.5-4.9); Total Protein 5.7 gm/dl (6.4-8.2)
--- NOTE | 2021-03-02 09:46 | Hospitalist Progress Note ---
Date of Service March 02, 2021 Assessment & Plan (1) GI bleed: Plan: -Patient denies any history of GI bleed, however reports some blood in the shower about a month ago -At that time did not report to anyone besides her -Patient never had colonoscopy due to prep -Hemoccult stool positive in ED GI contacted Aware of conversation with pulmonology, starting IV heparin after blood transfusion - clear liquid diet today (03/02), likely prep for endoscopy Update: discussed with GI today (03/02), patient does not wish to proceed with colonoscopy because of prep She is okay to have EGD EUS done tomorrow, will stop IV heparin in the morning Abnormal CT scan -Multiple lesions in liver, concerning for possible metastatic/malignant process Patient and daughter updated at the bedside (2) Acute blood loss anemia: Plan: -Hemoglobin 7 on admission -Per history, likely acute on chronic, possibly due to underlying cancer -2 Units of PRBCs ordered in ED, now s/p transfusion, Hgb stable > 9 -Continue to closely monitor H&H and hemodynamic status (3) Acute pulmonary embolism: Plan: -Discussed findings with pulmonology, Dr. Banegas -Recommends to transfuse 2 units of blood, then start IV heparin without bolus -Continue to closely monitor for any GI bleed -Obtain doppler of LE - FINDINGS: The venous thrombosis is noted bilaterally. On the left, there is an acute appearing occlusive thrombus in the popliteal vein, posterior tibial vein, and peroneal vein. A chronic appearing occlusive thrombus is in the superficial femoral vein, extending from the proximal to the distal aspect. On the right, acute appearing deep venous thrombus is seen in the popliteal vein, posterior tibial vein, and peroneal vein. Impression: Bilateral deep venous thrombus as above. 03/02 Patient remains hemodynamically stable No observed GI bleed so far Echo obtained - EF 65 to 70%. RV is normal size. RV systolic function is normal. Aortic valve is mildly calcified. Bicuspid valve cannot be excluded. Mild aortic regurg. Mild valvular aortic stenosis. There is trace tricuspid regurgitation. Doppler findings do not suggest pulmonary hypertension. Small loculated anterior pericardial fusion, no sign of cardiac tamponade. (4) Elevated troponin: Plan: -likely secondary to above -Patient has no chest pain and no history of chest pain -Echocardiogram as above (5) Elevated INR: Plan: - secondary to underlying process (as above) -Continue to closely monitor INR Hypothyroidism Continue levothyroxine CKD stage III Monitor kidney function while inpatient Hyperlipidemia -Hold statin for now Code: DNR/DNI -discussed with the patient at the bedside Admission and Anticipated Discharge Date Admission Date: March 01, 2021 Subjective Patient seen in follow-up of anemia, PE, GI bleed Received 2 units of PRBCs, currently hemoglobin stable Doppler obtained of lower extremities, shows bilateral DVTs Patient is lying in bed, in no acute distress. Currently denies any chest pain, shortness of breath, abdominal pain, nausea or vomiting Says she is feeling better after getting blood transfusion. Pt aware of upcoming endoscopy. She is okay about her daughter being updated however she does not want her have her sisters updated yet until she has more information. Review of Systems Review of Systems: All systems reviewed & are unremarkable except as noted in Subjective Physical Exam Constitutional: WD/WN, vitals as above in NAD Eyes: PERRL, conjunctivae normal, anicteric sclerae (EOMI) ENMT: external ear and nose normal, oropharynx normal Neck: normal visual inspection Respiratory: normal respiratory effort, lungs clear to auscultation Cardiovascular: RRR, no murmur, no edema Chest (Breasts): Chest: normal inspection of chest Gastrointestinal (Abdomen): Percussion/Palpation: abdomen soft; abdomen nontender, no guarding and abdomen not rigid Musculoskeletal: no cyanosis or clubbing, extremities motor strength 5/5 Skin: no rashes, warm and dry Neurologic: PERRL, EOMI, accommodation nl, no face palsy, no dysarthria Psychiatric: A+Ox3, euthymic affect Genitourinary: no CVA tenderness Lymphatic: no lymphedema Results & Data Results & Data ([facility]) Vital Signs (Past 12 Hours) Vital Signs Temp Pulse Resp BP Pulse Ox 03/02/21 07:30 36.5 C 62 18 149/73 H 96 03/02/21 06:49 37.1 C 65 16 143/78 H 97 03/02/21 04:19 37.0 C 64 17 130/71 96 03/01/21 23:44 156/83 H 03/01/21 23:14 36.8 C 74 17 96 Laboratory Results 03/02/21 03/02/21 03/02/21 Range/Units 06:46 06:46 06:46 WBC 9.76 (4.8-10.8) K/uL RBC 3.27 L (4.2-5.4) M/uL Hgb 9.3 L (12.0-16.0) g/dL Hct 29.1 L (37-47) % MCV 89.0 (80-100) fL MCH 28.4 (25-34) pg MCHC 32.0 (32-36) g/dL RDW Std Deviation 48.7 H (36.4-46.3) fL RDW Coeff of Garrett 15.3 H (11.5-14.5) % Plt Count 106 L (130-400) K/uL MPV 9.7 (7.4-10.4) fL PT 11.7 (9.0-12.0) Seconds INR 1.2 H (0.9-1.1) APTT (21.0-31.0) Seconds PTT Ratio Sodium 139 (136-145) mmol/L Potassium 4.0 (3.5-5.1) mmol/L Chloride 107 (98-107) mmol/L Carbon Dioxide 23 (21-32) mmol/L Anion Gap 9.0 (3-11) BUN 19 H (7-18) mg/dl Creatinine 0.80 (0.6-1.2) mg/dl Est Cr Clr Drug Dosing 47.2 ml/min Est GFR ( Amer) 81.8 ml/min Est GFR (Non-Af Amer) 70.6 ml/min BUN/Creatinine Ratio 23.6 H (10-20) Glucose 90 (70-99) mg/dl Calcium 7.9 L (8.5-10.1) mg/dl Phosphorus 2.4 L (2.5-4.9) mg/dl Magnesium 2.2 (1.8-2.4) mg/dl Total Bilirubin 0.6 (0.2-1) mg/dl AST 53 H (15-37) U/L ALT 43 (12-78) U/L Alkaline Phosphatase 252 H (45-117) U/L Total Protein 5.7 L (6.4-8.2) gm/dl Albumin 2.4 L (3.4-5.0) gm/dl Globulin 3.3 (2.5-4.0) gm/dl Albumin/Globulin Ratio 0.7 L (0.9-2) Urine Color Urine Appearance (Clear) Urine pH (4.5-7.5) Ur Specific Jefferson (1.000-1.030) Urine Protein (Negative) Urine Glucose (UA) (Negative) Urine Ketones (Negative) Urine Blood (Negative) Urine Nitrite (Negative) Urine Bilirubin (Negative) Urine Urobilinogen (Negative) Ur Leukocyte Esterase (Negative) Urine WBC (Auto) (0-5) /hpf Urine RBC (Auto) (0-4) /hpf U Hyaline Cast (Auto) (0-5) /lpf U Epithel Cells (Auto) (0-5) /lpf Urine Bacteria (Auto) (Negative) SARS-CoV-2 (PCR) (Negative) Blood Type Blood Type Recheck Antibody Screen Crossmatch 03/02/21 03/01/21 03/01/21 Range/Units 00:17 17:06 17:06 WBC (4.8-10.8) K/uL RBC (4.2-5.4) M/uL Hgb (12.0-16.0) g/dL Hct (37-47) % MCV (80-100) fL MCH (25-34) pg MCHC (32-36) g/dL RDW Std Deviation (36.4-46.3) fL RDW Coeff of Garrett (11.5-14.5) % Plt Count (130-400) K/uL MPV (7.4-10.4) fL PT 14.3 H (9.0-12.0) Seconds INR 1.5 H (0.9-1.1) APTT 55.5 H* 31.2 H (21.0-31.0) Seconds PTT Ratio 2.1 1.2 Sodium 142 (136-145) mmol/L Potassium 4.4 (3.5-5.1) mmol/L Chloride 109 H (98-107) mmol/L Carbon Dioxide 25 (21-32) mmol/L Anion Gap 8.0 (3-11) BUN 21 H (7-18) mg/dl Creatinine 0.88 (0.6-1.2) mg/dl Est Cr Clr Drug Dosing 42.9 ml/min Est GFR ( Amer) 72.9 ml/min Est GFR (Non-Af Amer) 62.9 ml/min BUN/Creatinine Ratio 23.5 H (10-20) Glucose 90 (70-99) mg/dl Calcium 8.2 L (8.5-10.1) mg/dl Phosphorus (2.5-4.9) mg/dl Magnesium (1.8-2.4) mg/dl Total Bilirubin 0.5 (0.2-1) mg/dl AST 52 H (15-37) U/L ALT 43 (12-78) U/L Alkaline Phosphatase 258 H (45-117) U/L Total Protein 5.9 L (6.4-8.2) gm/dl Albumin 2.6 L (3.4-5.0) gm/dl Globulin 3.3 (2.5-4.0) gm/dl Albumin/Globulin Ratio 0.8 L (0.9-2) Urine Color Urine Appearance (Clear) Urine pH (4.5-7.5) Ur Specific Jefferson (1.000-1.030) Urine Protein (Negative) Urine Glucose (UA) (Negative) Urine Ketones (Negative) Urine Blood (Negative) Urine Nitrite (Negative) Urine Bilirubin (Negative) Urine Urobilinogen (Negative) Ur Leukocyte Esterase (Negative) Urine WBC (Auto) (0-5) /hpf Urine RBC (Auto) (0-4) /hpf U Hyaline Cast (Auto) (0-5) /lpf U Epithel Cells (Auto) (0-5) /lpf Urine Bacteria (Auto) (Negative) SARS-CoV-2 (PCR) (Negative) Blood Type Blood Type Recheck Antibody Screen Crossmatch 03/01/21 03/01/21 03/01/21 Range/Units 17:06 11:07 10:32 WBC 9.58 (4.8-10.8) K/uL RBC 3.28 L (4.2-5.4) M/uL Hgb 9.5 L (12.0-16.0) g/dL Hct 29.8 L (37-47) % MCV 90.9 (80-100) fL MCH 29.0 (25-34) pg MCHC 31.9 L (32-36) g/dL RDW Std Deviation 48.0 H (36.4-46.3) fL RDW Coeff of Garrett 14.7 H (11.5-14.5) % Plt Count 94 L (130-400) K/uL MPV 10.2 (7.4-10.4) fL PT (9.0-12.0) Seconds INR (0.9-1.1) APTT (21.0-31.0) Seconds PTT Ratio Sodium (136-145) mmol/L Potassium (3.5-5.1) mmol/L Chloride (98-107) mmol/L Carbon Dioxide (21-32) mmol/L Anion Gap (3-11) BUN (7-18) mg/dl Creatinine (0.6-1.2) mg/dl Est Cr Clr Drug Dosing ml/min Est GFR ( Amer) ml/min Est GFR (Non-Af Amer) ml/min BUN/Creatinine Ratio (10-20) Glucose (70-99) mg/dl Calcium (8.5-10.1) mg/dl Phosphorus (2.5-4.9) mg/dl Magnesium (1.8-2.4) mg/dl Total Bilirubin (0.2-1) mg/dl AST (15-37) U/L ALT (12-78) U/L Alkaline Phosphatase (45-117) U/L Total Protein (6.4-8.2) gm/dl Albumin (3.4-5.0) gm/dl Globulin (2.5-4.0) gm/dl Albumin/Globulin Ratio (0.9-2) Urine Color Urine Appearance (Clear) Urine pH (4.5-7.5) Ur Specific Jefferson (1.000-1.030) Urine Protein (Negative) Urine Glucose (UA) (Negative) Urine Ketones (Negative) Urine Blood (Negative) Urine Nitrite (Negative) Urine Bilirubin (Negative) Urine Urobilinogen (Negative) Ur Leukocyte Esterase (Negative) Urine WBC (Auto) (0-5) /hpf Urine RBC (Auto) (0-4) /hpf U Hyaline Cast (Auto) (0-5) /lpf U Epithel Cells (Auto) (0-5) /lpf Urine Bacteria (Auto) (Negative) SARS-CoV-2 (PCR) (Negative) Blood Type A Positive Blood Type Recheck A Positive Antibody Screen NEGATIVE Crossmatch See Detail 03/01/21 03/01/21 Range/Units 09:20 09:20 WBC (4.8-10.8) K/uL RBC (4.2-5.4) M/uL Hgb (12.0-16.0) g/dL Hct (37-47) % MCV (80-100) fL MCH (25-34) pg MCHC (32-36) g/dL RDW Std Deviation (36.4-46.3) fL RDW Coeff of Garrett (11.5-14.5) % Plt Count (130-400) K/uL MPV (7.4-10.4) fL PT (9.0-12.0) Seconds INR (0.9-1.1) APTT (21.0-31.0) Seconds PTT Ratio Sodium (136-145) mmol/L Potassium (3.5-5.1) mmol/L Chloride (98-107) mmol/L Carbon Dioxide (21-32) mmol/L Anion Gap (3-11) BUN (7-18) mg/dl Creatinine (0.6-1.2) mg/dl Est Cr Clr Drug Dosing ml/min Est GFR ( Amer) ml/min Est GFR (Non-Af Amer) ml/min BUN/Creatinine Ratio (10-20) Glucose (70-99) mg/dl Calcium (8.5-10.1) mg/dl Phosphorus (2.5-4.9) mg/dl Magnesium (1.8-2.4) mg/dl Total Bilirubin (0.2-1) mg/dl AST (15-37) U/L ALT (12-78) U/L Alkaline Phosphatase (45-117) U/L Total Protein (6.4-8.2) gm/dl Albumin (3.4-5.0) gm/dl Globulin (2.5-4.0) gm/dl Albumin/Globulin Ratio (0.9-2) Urine Color Yellow Urine Appearance Clear (Clear) Urine pH 7.0 (4.5-7.5) Ur Specific Jefferson 1.005 (1.000-1.030) Urine Protein Negative (Negative) Urine Glucose (UA) Negative (Negative) Urine Ketones Negative (Negative) Urine Blood Negative (Negative) Urine Nitrite Negative (Negative) Urine Bilirubin Negative (Negative) Urine Urobilinogen Negative (Negative) Ur Leukocyte Esterase 2+ H (Negative) Urine WBC (Auto) 10-30 H (0-5) /hpf Urine RBC (Auto) 0-4 (0-4) /hpf U Hyaline Cast (Auto) 0 (0-5) /lpf U Epithel Cells (Auto) >30 H (0-5) /lpf Urine Bacteria (Auto) Negative (Negative) SARS-CoV-2 (PCR) NEGATIVE (Negative) Blood Type Blood Type Recheck Antibody Screen Crossmatch Medications Administered Current Inpatient Medications Heparin Sodium/Dextrose (Heparin Sodium/Dextrose) 25,000 units in 500 mls @ 18 mls/hr IV .Q24H MORRO; Protocol Stop: 03/31/21 18:09 Last Titration: 03/02/21 01:04 Dose: 900 units/hr, 18 mls/hr Documented by: Levothyroxine Sodium (Levothyroxine Sodium 75 Mcg Tablet) 75 mcg PO DAILYBB MORRO Stop: 04/01/21 06:29 Last Admin: 03/02/21 06:25 Dose: 75 mcg Documented by: (1) Acute pulmonary embolism Acute cor pulmonale presence: unspecified Pulmonary embolism type: unspecified Qualified Code(s): I26.99 - Other pulmonary embolism without acute cor pulmonale (2) GI bleed GI bleed type/associated pathology: unspecified gastrointestinal hemorrhage type Qualified Code(s): K92.2 - Gastrointestinal hemorrhage, unspecified
--- NOTE | 2021-03-02 10:36 | Gastrointestinal Consultation ---
Date of Consultation March 02, 2021 Assessment & Plan (1) Liver lesion: There is no evidence that patient is undergoing any sort of active GI bleeding. She was only FOBT positive in the ER, certainly has a chronic anemia. She does have concerning liver lesions that would be consistent with a metastatic GI process. I did discuss with her the possibility of undergoing EGD as well as colonoscopy. She is pretty adamant that she does not want to undergo colonoscopy prep. Options would include EGD only, percutaneous liver biopsy, and/or EGD EUS. Will discuss with Dr. Briscoe who is covering biliary this week to see if he potentially would like to do this. Please give IV vitamin K at least 5 mg 1 dose to see if that lowers her INR. We will plan for definitive plan once that discussion has taken place, will also need to have heparin held at least 6 hours prior to procedure. History of Present Illness Attending Physician: Chris Murphy MD History of Present Illness 80-year-old female who we have been asked to see for weakness and evaluation of multiple liver lesions. She has a chronic history of hyperlipidemia, hypothyroidism, CKD stage III, who presented to the ER with complaints of shortness of breath, dizziness, weakness especially with exertion for several months. Upon presentation she states that she was showering, and became quite light headed, lowered herself, and then her had to help her to bed. Denied loss of consciousness but due to profound weakness was brought into the emergency room. She also reports never having a colonoscopy, as she did not want to do prep. In the ED, evaluation significant for anemia with hemoglobin of 7, platelets 92, stool heme positive. In addition D-dimer over 35,000, and CT PE was obtained and confirmed right-sided pulmonary embolism with possible pulmonary infarct. INR elevated at 1.6 and troponin elevated at 1.6. CT abdomen significant for numerous lesions in liver concerning for metastatic disease. Patient has no prior history of cancer. There was also small splenic infarct noted on PET/CT. EKG showing sinus rhythm. 2 units of PRBCs ordered in ED with an appropriate response to greater than 9 today. She denies any abdominal pain, fevers or chills, still states that she is weak. I did discuss that we should do an EGD and colonoscopy on her tomorrow, however she still very adamant that she does not want to undergo a colonoscopy prep. I carefully reviewed her imaging with radiology, there is no obvious colonic mass, there is some mild thickening on the CT of the chest of her distal esophagus. However there is no obvious mass. Allergies Allergy/AdvReac Type Severity Reaction Status Date / Time No Known Allergies Allergy Unverified 03/01/21 07:49 Home Medications Medication Instructions Recorded Confirmed Type B360 Probiotic 1 cap PO QAM 03/01/21 03/01/21 History cholecalciferol (vitamin D3) 50 50 mcg PO QAM 03/01/21 03/01/21 History mcg (2,000 unit) capsule (Vitamin D3) levothyroxine 75 mcg tablet 75 mcg PO DAILYBB 03/01/21 03/01/21 History (Synthroid) lorazepam 1 mg tablet (Ativan) 1 mg SUBLINGUAL UD 03/01/21 03/01/21 History pravastatin 10 mg tablet 10 mg PO HS 03/01/21 03/01/21 History Patient History Medical History CKD (chronic kidney disease) stage 3, GFR 30-59 ml/min Hyperlipidemia Hypothyroidism (acquired) Surgical History Hx of cataract surgery S/P laser trabeculoplasty of eye Social History Smoking Status: Never smoker Hx Alcohol Use: Yes Hx Substance Use: No Preferred Language: Fijian Communication Ability: Effective marital status: Current Living Situation: Spouse How many Children do You have: 3 Feels Safe at Home: Yes Safety Concerns: Feels Safe At This Time Assistive Devices: None Review of Systems Review of Systems: 10 system review of symptoms are normal Physical Exam Constitutional: WD/WN, vitals as above Cardiovascular: RRR, no murmur, no edema Gastrointestinal (Abdomen): normal bowel sounds, soft, nontender, no hepatosplenomegaly Results & Data ([facility]) Vital Signs (Past 12 Hours) Vital Signs Temp Pulse Pulse Resp BP Pulse Ox 03/02/21 08:00 59 L 03/02/21 07:30 36.5 C 62 18 149/73 H 96 03/02/21 06:49 37.1 C 65 16 143/78 H 97 03/02/21 04:19 37.0 C 64 17 130/71 96 03/01/21 23:44 156/83 H 03/01/21 23:14 36.8 C 74 17 96
[2021-03-02 18:39] LABS: Hematocrit (blood only) 29.6 % (37-47); Hemoglobin 9.8 g/dL (12.0-16.0)
[2021-03-02] MEDS: HEPARIN SODIUM/DEXTROSE 25,000 UNITS/500 ML BAG IV SCH (20:29)
--- NOTE | 2021-03-03 06:28 | Communication Note ---
Date of Service: March 03, 2021 Stroke alert called around 6:15 AM As per RN account, around 6:10 AM patient noted to be aphasic, had trouble getting words out. Left facial droop and left upper extremity weakness noted. Patient last known to be well around 3 AM as per RN. Patient denies headache symptoms. No prior episodes as per patient. BSG 101. PPE Mild dysarthria Flattened left nasolabial fold MMTS BUE 4/5 (subtle weakness LUE compared to RUE) MMTS BLE 4/5 CT head: No acute intracranial hemorrhage, midline shift, intracranial mass, hydrocephalus, territorial ischemia or abnormal extra-axial collection. Age- related involutional changes. Mild white matter hypodensities suggest chronic microvascular ischemic disease. Possible chronic lacunar infarct of the posterio r right mid cerebellar hemisphere. The calvarium is intact. Prior bilateral lens repair. The paranasal sinuses, mastoid air cells, and middle ear cavities are clear. IMPRESSION: No acute intracranial abnormality. Case discussed with Dr. Ortega ([facility] [place] telest[place] specialist). He concurs that patient is not a TPA candidate given recent IV heparin infusion and GI bleed concerns. He recommends CT angio of the head and neck to rule out large vessel occlusion. Patient may benefit from endovascular intervention at a tertiary center if above imaging shows large vessel occlusion and patient agreeable. Will relay to AM provider.
[2021-03-03] MEDS: LEVOTHYROXINE SODIUM 75 MCG TABLET PO SCH (06:30)
[2021-03-03 06:31] LABS: Hematocrit (blood only) 30.5 % (37-47); Hemoglobin 9.9 g/dL (12.0-16.0); Mean Corpuscular Hgb Conc 32.5 g/dL (32-36); Mean Corpuscular Volume 89.4 fL (80-100); Mean Platelet Volume 9.8 fL (7.4-10.4); Platelet Count 134 K/uL (130-400); RDW Coefficient of Variation 15.3 % (11.5-14.5); RDW Standard Deviation 48.7 fL (36.4-46.3); Red Blood Count 3.41 M/uL (4.2-5.4); White Blood Count 11.19 K/uL (4.8-10.8)
[2021-03-03 06:40] LABS: INR 1.1 (0.9-1.1); Prothrombin Time 10.8 Seconds (9.0-12.0)
--- NOTE | 2021-03-03 06:41 | CT Scan Report ---
CT head/brain wo con CLINICAL HISTORY: 80 years-old Female with stroke alert. Acute strokelike symptoms TECHNIQUE: Multiple axial CT images of the head were obtained without contrast. A dose lowering tech nique was utilized adhering to the principles of ALARA. CT DOSE: 537.48 mGy.cm COMPARISON: Head CT 03/01/2021 FINDINGS: No acute intracranial hemorrhage, midline shift, intracranial mass, hydrocephalus, territorial ischem ia or abnormal extra-axial collection. Age-related involutional changes. Mild white matter hypodensit ies suggest chronic microvascular ischemic disease. Possible chronic lacunar infarct of the posterior right mid cerebellar hemisphere. The calvarium is intact. Prior bilateral lens repair. The paranasal sinuses, mastoid air cells, and m iddle ear cavities are clear. IMPRESSION: No acute intracranial abnormality. ACT 112: Negative or not required by law. The above report was generated using voice recognition software. It may contain grammatical, syntax o r spelling errors. Electronically signed by: Diaz Grande M.D. 03/03/2021 6:39 AM
[2021-03-03 07:10] LABS: Albumin Globulin Ratio 0.7 (0.9-2); Albumin Level 2.4 gm/dl (3.4-5.0); BUN Creatinine Ratio 17.7 (10-20); Bilirubin,Total 0.7 mg/dl (0.2-1); Calcium 8.2 mg/dl (8.5-10.1); Creatinine Clr Calc Pharmacy 47.2 ml/min; Est GFR (African American) 81.8 ml/min; Est GFR (Non-African American) 70.6 ml/min; Globulin 3.6 gm/dl (2.5-4.0); Magnesium 2.2 mg/dl (1.8-2.4); Phosphorus 2.7 mg/dl (2.5-4.9)
[2021-03-03] MEDS ORDERED: D5W AND LACTATED RINGERS 1,000 ML IV SCH (07:15)
[2021-03-03] MEDS ORDERED: OPTIRAY 320 125ml IV ONE (07:16)
--- NOTE | 2021-03-03 07:44 | Critical Care Consultation ---
Date of Consultation March 03, 2021 Assessment & Plan (1) CVA (cerebral vascular accident): (2) Hypothyroidism (acquired): (3) Elevated INR: (4) Elevated troponin: (5) Acute pulmonary embolism: (6) Acute blood loss anemia: (7) GI bleed: (8) Hyperlipidemia: Reason Critically Ill: 80 year old female w/ PMHx of CKD3, hypothyroidism who presented for months of dyspnea and GI bleed workup, was admitted to ICU this AM after stroke alert was called at ~6:30AM for new speech and focal de ficits (LUE weakness). Neuro - [facility] ICU: neg embolic stroke Per MRI. primary source unknown CTA head/neck neg for large vessel occlusion tPA contraindicated because of IV heparin use and possible GI bleeding Cardiac - Monitor on telemetry No interatrial shunt on echo w/ injected contrast. elevated troponin peaked at 1.64. Likely 2/2 demand ischemia. ecg at admission NSR Respiratory - right sided pulmonary embolism Continue on IV heparin drip. GI - Passed swallow eval. Regular diet Multiple liver lesions Suspicious for mets. Primary source unknown at this time. hemmocult pos in ED EGD deferred at this time given the new stroke RENAL/LYTES - Replace lytes as needed. IV fluids discontinued - No concerns at this time. ENDO - ICU hyperglycemia protocol hypothyroidism Continue home levothyroxine HEME - anemia s/p 2 uprbc on 03/01. Hb this AM was stable Follow cbc INR 1.6 at admission 03/01, 1.1 today ID - No concerns for infection LINES/IV ACCESS - PIVs x2 at LUE intact. DVT PROPHYLAXIS - Patient is on heparin drip code: DNR/DNI (per hospitalist discussion w/ patient at admission). code status reconfirmed today. palliative care consulted to clarify goals of care. Continue current level of care. Updated patient's daughter Caren. dispo: stable for downgrade from ICU Supervising Physician Co-Signing Physician Notes New onset neuro deficits suspect embolic phenomenon versus hypercoagulable state secondary to presumptive metastatic liver cancer. Reviewed imaging no intracranial hemorrhage will restart heparin at this time. No indication to administer vitamin K at this time INR is 1.1. Patient exhibiting progression of stroke from weakness to now flaccid paralysis MRI pending. Given the above concerns for embolic versus metastatic phenomenon I believe patient would be high risk for any sort of thrombectomy. MRI pending, would address CODE STATUS and long-term goals with the patient. Palliative care consult History of Present Illness Reason for Consultation: stroke alert Attending Physician: Chris Murphy MD History of Present Illness Amanda Black is a 80 year old female w/ PMHx of CKD3, hypothyroidism who presented on 03/01/21 for several months of worsening CALI, wkness, dizziness (near-syncopal). She denies hx of prior hospitalization. She states that 40 years ago, she had a TIA. Denies family hx of stroke. No personal hx of DM or heart disease. Never smoker. Hb of 7 in ED. +R pulmonary embolism. CT abd w/ multiple liver lesions suspicious of mets. Small splenic infarct. She was found to have acute anemia and acute DVT. 03/03/21 6:10AM, aphasia and L facial droop and LUE wkness, so stroke alert was called. 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 Not TPA candidate. Last known well 3AM. CTA head neck pending to r/o large vessel occlusion. Currently, feels her aphasia is slightly improved. Her LUE weakness is about same as earlier. Allergies Allergy/AdvReac Type Severity Reaction Status Date / Time No Known Allergies Allergy Unverified 03/01/21 07:49 Home Medications Medication Instructions Recorded Confirmed Type B360 Probiotic 1 cap PO QAM 03/01/21 03/01/21 History cholecalciferol (vitamin D3) 50 50 mcg PO QAM 03/01/21 03/01/21 History mcg (2,000 unit) capsule (Vitamin D3) levothyroxine 75 mcg tablet 75 mcg PO DAILYBB 03/01/21 03/01/21 History (Synthroid) lorazepam 1 mg tablet (Ativan) 1 mg SUBLINGUAL UD 03/01/21 03/01/21 History pravastatin 10 mg tablet 10 mg PO HS 03/01/21 03/01/21 History Patient History Medical History CKD (chronic kidney disease) stage 3, GFR 30-59 ml/min Hyperlipidemia Hypothyroidism (acquired) Palliative care encounter Weakness Surgical History Hx of cataract surgery S/P laser trabeculoplasty of eye Social History Smoking Status: Never smoker Hx Alcohol Use: Yes Hx Substance Use: No Preferred Language: Mongolian Communication Ability: Effective marital status: Current Living Situation: Spouse How many Children do You have: 3 Feels Safe at Home: Yes Safety Concerns: Feels Safe At This Time Assistive Devices: None Review of Systems Review of Systems: All systems reviewed & are unremarkable except as noted in HPI & below Constitutional: Denies fever, chills Eyes: Denies blurry vision, vision changes, photophobia. ENT: Denies sore throat, cough Cardiovascular: Denies chest pain, palpitations Respiratory: Denies shortness of breath Gastrointestinal: Denies abdominal pain, nausea, vomiting, constipation, diarrhea. + bloody stool this admission Genitourinary: Denies urinary symptoms including dysuria Musculoskeletal: Denies weakness, muscle aches/pain, joint aches/pain. Denies pain. Neurological: Denies headache, numbness, tingling. Denies confusion. Mild near- syncopal type dizziness. Physical Exam Physical Exam: General: A&Ox4. NAD. Cooperative. HEENT: Atraumatic, normocephalic. PERRL. Has some difficulty w/ left lower during extraocular movement testing. No carotid bruit. Pulm: CTAB. -wheezes, -rales, -rhonchi. No respiratory distress. Cardiac: RRR, -mrg. Radial pulses intact and symmetrical. Abdominal: Nontender, nondistended, soft. Neuro: Normal finger to nose on right + expressive aphasia, mild. Speech is understandable. + L facial droop, lower half of face. Aside from EOM, other cranial nerves intact. Some altered sensation of L side of body., face, UE, LE. Normal heel-dozier on R, able to do on L, but slightly more challenging to do. LLE strength mostly intact. Unable to shrug L soulder, squeeze hand on L or lift LUE. Results & Data Results & Data ([facility]) Vital Signs (Past 12 Hours) Vital Signs Temp Pulse Pulse Resp BP Pulse Ox 03/03/21 07:01 72 20 123/73 98 03/03/21 06:14 37.2 C 81 17 161/82 H 97 10/05/21 03:00 36.7 C 65 16 139/76 96 03/02/21 22:30 37.0 C 72 17 137/77 96 03/02/21 22:19 68 Laboratory Results wbc 9.76->11.19. Hb stable 9.9 last transfusion 2 units on 03/01. plts 92 at admission. 134 today. INR 1.1. electrolytes stable. Ca 8.2, corrected is ok. AST 53->64. alk phos 252->274. trop 1.64->1.51. head cta neg. neck cta pending. head CT neg. 03/01/21 UC prelim GBS >100kcfu. 03/01 ecg ok. 03/01 echo ef 65-70. Cardiac Enzymes 03/02/21 03/03/21 Range/Units 17:53 06:18 AST 64 H (15-37) U/L Troponin I 1.510 H* (0-0.045) ng/ml Coagulation 03/03/21 Range/Units 06:18 PT 10.8 (9.0-12.0) Seconds CBC 03/02/21 03/03/21 Range/Units 17:53 06:18 WBC 11.19 H (4.8-10.8) K/uL RBC 3.41 L (4.2-5.4) M/uL Hgb 9.8 L 9.9 L (12.0-16.0) g/dL Hct 29.6 L 30.5 L (37-47) % Plt Count 134 (130-400) K/uL Comprehensive Metabolic Panel 03/03/21 Range/Units 06:18 Sodium 140 (136-145) mmol/L Potassium 4.0 (3.5-5.1) mmol/L Chloride 107 (98-107) mmol/L Carbon Dioxide 23 (21-32) mmol/L BUN 14 (7-18) mg/dl Creatinine 0.80 (0.6-1.2) mg/dl Glucose 98 (70-99) mg/dl Calcium 8.2 L (8.5-10.1) mg/dl AST 64 H (15-37) U/L ALT 47 (12-78) U/L Alkaline Phosphatase 274 H (45-117) U/L Total Protein 6.0 L (6.4-8.2) gm/dl Albumin 2.4 L (3.4-5.0) gm/dl Intake and Output 03/02/21 03/03/21 03/03/21 22:59 06:59 14:59 Intake Total 549.5 / 924.1 174.6 / 924.1 Output Total 200 / 903 300 / 903 Balance 349.5 / 21.1 -125.4 / 21.1 Intake: IV 349.5 / 524.1 174.6 / 524.1 Heparin Sodium/Dextrose 25,000 349.5 / 524.1 174.6 / 524.1 units In 500 ml @ 900 UNITS/HR 18 mls/hr IV .Q24H [facility] Rx#: [id number] Oral 200 / 400 0 / 400 Output: Urine 200 / 903 300 / 903 Other: Weight 60.8 kg Patient Weight 03/04/21 06:59 Weight 60.8 kg Diagnostic Findings Head CT 03/03/21 06:27 CT head/brain wo con CLINICAL HISTORY: 80 years-old Female with stroke alert. Acute strokelike symptoms TECHNIQUE: Multiple axial CT images of the head were obtained without contrast. A dose lowering technique was utilized adhering to the principles of ALARA. CT DOSE: 537.48 mGy.cm COMPARISON: Head CT 03/01/2021 FINDINGS: No acute intracranial hemorrhage, midline shift, intracranial mass, hy drocephalus, territorial ischemia or abnormal extra-axial collection. Age- related involutional changes. Mild white matter hypodensities suggest chronic microvascular ischemic disease. Possible chronic lacunar infarct of the posterior right mid cerebellar hemisphere. The calvarium is intact. Prior bilateral lens repair. The paranasal sinuses, mastoid air cells, and middle ear cavities are clear. IMPRESSION: No acute intracranial abnormality. ACT 112: Negative or not required by law. The above report was generated using voice recognition software. It may contain grammatical, syntax or spelling errors. Electronically signed by: Diaz Grande M.D. 03/03/2021 6:39 AM Head CTA 03/03/21 07:00 CTA ANGIOGRAPHY OF THE HEAD CLINICAL HISTORY: stroke alert COMPARISON STUDY: No previous studies for comparison. TECHNIQUE: Helical axial images of the head were obtained following uneventful intravenous administration of 1 cc of Optiray. Sagittal and coronal reconstructions were viewed as well as maximal intensity projections on an independent 3-D workstation. Automated exposure control was utilized for the study. A dose lowering technique was utilized adhering to the principles of ALARA. CT DOSE: 541.73 mGy.cm FINDINGS: No acute intracranial hemorrhage, midline shift or mass effect is present. Head CT will be reported separately. Ventricular system is unremarkable. Basal cisterns are patent. There are no extra-axial collections. The bilateral M1, M2, A1 and A2 segments are patent. There is moderate plaque within bilateral cavernous carotids without stenosis. There are large bilateral posterior communicating arteries. The left vertebral artery is dominant. There is no central vessel occlusion. No intracranial aneurysm is present. There is no dissection within the intracranial vessels. IMPRESSION: No central vessel occlusion. No intracranial aneurysm. ACT 112: Negative or not required by law. Electronically signed by: Carlos Pitts M.D. 03/03/2021 8:02 AM Neck CTA 03/03/21 07:00 CT ANGIOGRAPHY OF THE NECK WITH CONTRAST CLINICAL HISTORY: stroke alert COMPARISON STUDY: No previous studies for comparison. Technique: CT angiography of the carotid and vertebral arteries was obtained using Optiray and 3D reconstruction on an independent workstation. NASCET cri teria was utilized. Automated exposure control was utilized for the study. A dose lowering technique was utilized adhering to the principles of ALARA. Findings: Lung apices are unremarkable. There is no cervical lymphadenopathy. No acute cervical spine fracture is present. The bilateral common carotid, cervical internal carotid and vertebral arteries are patent. There is mild plaque within the bilateral carotid bifurcations. There is no stenosis. There is no dissection within the vessels within the neck. Left vertebral artery is dominant. No aneurysm within the neck is present. IMPRESSION: No stenosis or dissection within the bilateral common carotid, cervical internal carotid or vertebral arteries. ACT 112: Negative or not required by law. Electronically signed by: Carlos Pitts M.D. 03/03/2021 8:31 AM Brain MRI 03/03/21 09:07 MR brain wo/w con HISTORY: 80 years-old Female CVA . Acute strokelike symptoms. Lightheadedness and dizziness with recent fall COMPARISON: Head CT with CTA had and neck of same day TECHNIQUE: Multiplanar multisequence MRI the brain was obtained both with and without the use of 6.0 mL Gadavist FINDINGS: Transport Coordinator localizer images demonstrate no gross extracranial abnormality. There are numerous punctate foci of restricted diffusion involving the bilateral frontal lobes near the vertex within both the anterior middle cerebral artery distributions. This includes a 3.4 cm area of restricted diffusion within the right frontal lobe on image 16. There are additional tiny foci of punctate restricted diffusion within the bilateral parietal occipital lobes these areas demonstrate decreased signal on ADC map with mildly increased T2/FLAIR signal. No acute intracranial hemorrhage, midline shift, abnormal extra axial collection, hydrocephalus or intra-axial mass. With foci of restricted diffusion within the cerebellar hemispheres measuring up to 1.5 cm on the right. There is mild flattening involving the ventral aspect of the medullary brainstem. Possible underlying arachnoid cyst. Partially empty sella. Age-related involutional changes. Mild patchy T2/FLAIR hyperintensities are noted throughout the white matter suggestive of chronic microvascular ischemic disease. No pathologic blooming artifact. No abnormal enhancement. Cerebral venous sinuses and major arterial flow voids are patent. Trace mastoid effusions. Mild mucosal thickening of the nasal turbinates and paranasal sinuses. Prior bilateral lens repair. Unremarkable skull and soft tissues. IMPRESSION: 1. Numerous small acute infarcts of the cerebral and cerebellar hemispheres within a multiple vascular distribution are likely embolic with a proximal source. 2. Age-related involutional changes with mild chronic microvascular ischemic disease. 3. No abnormal enhancement. ACT 112: Negative or not required by law. The above report was generated using voice recognition software. It may contain grammatical, syntax or spelling errors. Electronically signed by: Diaz Grande M.D. 03/03/2021 12:17 PM Resident Activity Tracking Resident Involvement: Resident Care Provided Care Provided: Adult Hospital Medicine (1) Acute pulmonary embolism Acute cor pulmonale presence: unspecified Pulmonary embolism type: unspecified Qualified Code(s): I26.99 - Other pulmonary embolism without acute cor pulmonale (2) GI bleed GI bleed type/associated pathology: unspecified gastrointestinal hemorrhage type Qualified Code(s): K92.2 - Gastrointestinal hemorrhage, unspecified
--- NOTE | 2021-03-03 08:03 | CT Scan Report ---
CTA ANGIOGRAPHY OF THE HEAD CLINICAL HISTORY: stroke alert COMPARISON STUDY: No previous studies for comparison. TECHNIQUE: Helical axial images of the head were obtained following uneventful intravenous administr ation of 1 cc of Optiray. Sagittal and coronal reconstructions were viewed as well as maximal intensi ty projections on an independent 3-D workstation. Automated exposure control was utilized for the st udy. A dose lowering technique was utilized adhering to the principles of ALARA. CT DOSE: 541.73 mGy.cm FINDINGS: No acute intracranial hemorrhage, midline shift or mass effect is present. Head CT will be reported separately. Ventricular system is unremarkable. Basal cisterns are patent. There are no extr a-axial collections. The bilateral M1, M2, A1 and A2 segments are patent. There is moderate plaque wi thin bilateral cavernous carotids without stenosis. There are large bilateral posterior communicating arteries. The left vertebral artery is dominant. There is no central vessel occlusion. No intracrani al aneurysm is present. There is no dissection within the intracranial vessels. IMPRESSION: No central vessel occlusion. No intracranial aneurysm. ACT 112: Negative or not required by law. Electronically signed by: Carlos Pitts M.D. 03/03/2021 8:02 AM
--- NOTE | 2021-03-03 08:33 | CT Scan Report ---
CT ANGIOGRAPHY OF THE NECK WITH CONTRAST CLINICAL HISTORY: stroke alert COMPARISON STUDY: No previous studies for comparison. Technique: CT angiography of the carotid and vertebral arteries was obtained using Optiray and 3D rec onstruction on an independent workstation. NASCET criteria was utilized. Automated exposure control was utilized for the study. A dose lowering technique was utilized adhering to the principles of ALA RA. Findings: Lung apices are unremarkable. There is no cervical lymphadenopathy. No acute cervical spine fracture is present. The bilateral common carotid, cervical internal carotid and vertebral arteries are patent. There is mild plaque within the bilateral carotid bifurcations. There is no stenosis. The re is no dissection within the vessels within the neck. Left vertebral artery is dominant. No aneurys m within the neck is present. IMPRESSION: No stenosis or dissection within the bilateral common carotid, cervical internal carotid or vertebral arteries. ACT 112: Negative or not required by law. Electronically signed by: Carlos Pitts M.D. 03/03/2021 8:31 AM
[2021-03-03] MEDS ORDERED: SODIUM CHLORIDE 0.9% 1000ML 500 ML IV ONE (09:07)
--- NOTE | 2021-03-03 09:16 | Hospitalist Progress Note ---
Date of Service March 03, 2021 Assessment & Plan (1) GI bleed: Plan: -Patient denies any history of GI bleed, however reports some blood in the shower about a month ago -At that time did not report to anyone besides her -Patient never had colonoscopy due to resilience to prep -Hemoccult stool positive in ED GI contacted Aware of conversation with pulmonology, starting IV heparin after blood transfusion - on admission - clear liquid diet today (03/02), likely prep for endoscopy Discussed with GI today (03/02), patient does not wish to proceed with colonoscopy because of prep She is okay to have EGD EUS done tomorrow (03/03), plan to stop IV heparin in the morning 03/03 -patient was stroke alert this morning, and has some neurological deficits, left and left face weakness CT head, CTA head and neck negative, however for now we will not proceed with anesthesia and further GI testing Discussed with GI, will reassess and for now postpone further GI testing Abnormal CT scan -Multiple lesions in liver, concerning for possible metastatic/malignant process Patient and daughter updated at the bedside Strokelike symptoms, likely CVA 03/03 - patient made a stroke alert this morning, at around 6:15 AM When being woken up by the nurse, patient had difficulty speaking/expressing herself She also had left lower face weakness and left arm weakness Stat CT head negative Audiovisual Tech discussed with Mary stroke physician and recommended CTA head and neck, which was also negative On my exam, patient has left lower face weakness, inability to shrug left shoulder however able to lift her left arm, cannot move fingers of her left hand Discussed with Dr. Magaña, neurology, will obtain stat MRI brain with and without contrast (will give NS bolus before MRI) We will obtain echo bubble study. with plan to resume IV heparin (hopefully no contraindication on MRI) Currently patient is in ICU, will coordinate the care (2) Acute blood loss anemia: Plan: -Hemoglobin 7 on admission -Per history, likely more chronic issue (or acute on chronic), but hemoccult +, possibly due to underlying cancer -2 Units of PRBCs ordered in ED, now s/p transfusion, Hgb stable > 9 -Continue to closely monitor H&H and hemodynamic status (3) Acute pulmonary embolism: Plan: -Discussed findings with pulmonology, Dr. Kadri -Recommends to transfuse 2 units of blood, then start IV heparin without bolus -Continue to closely monitor for any GI bleed -Obtain doppler of LE - FINDINGS: The venous thrombosis is noted bilaterally. On the left, there is an acute appearing occlusive thrombus in the popliteal vein, posterior tibial vein, and peroneal vein. A chronic appearing occlusive thrombus is in the superficial femoral vein, extending from the proximal to the distal aspect. On the right, acute appearing deep venous thrombus is seen in the popliteal vein, posterior tibial vein, and peroneal vein. Impression: Bilateral deep venous thrombus as above. 03/02 Patient remains hemodynamically stable No observed GI bleed so far Echo obtained - EF 65 to 70%. RV is normal size. RV systolic function is normal. Aortic valve is mildly calcified. Bicuspid valve cannot be excluded. Mild aortic regurg. Mild valvular aortic stenosis. There is trace tricuspid regurgitation. Doppler findings do not suggest pulmonary hypertension. Small loculated anterior pericardial fusion, no sign of cardiac tamponade. (4) Elevated troponin: Plan: -likely secondary to above -Patient has no chest pain and no history of chest pain -Echocardiogram as above (5) Elevated INR: Plan: - secondary to underlying process (as above) -Continue to closely monitor INR Hypothyroidism Continue levothyroxine CKD stage III Monitor kidney function while inpatient Hyperlipidemia -Hold statin for now Code: DNR/DNI -discussed with the patient at the bedside Admission and Anticipated Discharge Date Admission Date: March 01, 2021 Subjective Patient admitted for anemia, PE, b/l DVT, GI bleed Received 2 units of PRBCs on admission, currently hemoglobin stable This morning, about 6:15 AM, patient was made a stroke alert as she has difficulty speaking, some left-sided weakness on her face and left arm. CT head stat was negative. Audiovisual Tech discussed with Mary stroke physician, and CTA head and neck was obtained stat. CTA head and neck negative. IV heparin was stopped at 7 in the morning as planned, as patient was supposed to undergo endoscopy with GI. Discussed findings with neurology, Dr. Magaña, recommend stat MRI with and without contrast. Plan is to resume IV heparin and obtain echo with bubble study. Currently patient is lying in bed, in no acute distress, however somewhat anxious. Says she was sleeping okay overnight and had no issues. She did not have any chest pain or shortness of breath. Currently also denies any headache, chest pain, shortness of breath, abdominal pain, nausea or vomiting. Feels that she is speaking better. However continues to have weakness in her left hand. And left lower face. Tyrese, from GI team, also at the bedside, at this point we will postpone further studies. Review of Systems Review of Systems: All systems reviewed & are unremarkable except as noted in Subjective Physical Exam Physical Exam: Constitutional: WD/WN, vitals as above in NAD, slightly anxious Eyes: conjunctivae normal, anicteric sclerae ENMT: external ear and nose normal, oropharynx normal Neck: normal visual inspection Respiratory: normal respiratory effort, lungs clear to auscultation Cardiovascular: RRR, no murmur, no edema Chest (Breasts): Chest: normal inspection of chest Gastrointestinal (Abdomen): abdomen soft; abdomen nontender, no guarding and abdomen not rigid Musculoskeletal: no sign. LE edema noted, some ecchymoses Skin: no rashes, warm and dry Neuro/ Psych: Patient is awake, alert oriented. She is able to speak, however says she had more difficulty speaking earlier this morning. She is able to raise her eyebrows bilaterally. She is able to close both of her eyes tightly. Lower left side of her face however seems weaker, cannot give me a full smile, left corner of her mouth is down when she is smiling. Cannot puff her cheeks. Cannot shrug her left shoulder. She is able to lift her left arm and hold her arm. She cannot squeeze however my fingers with her left hand. She is not moving her left fingers. Denies any sensory deficit. Patient is able to fully move her right arm right leg and left leg - no weakness noted. No sensory loss noted there. Results & Data Results & Data ([facility]) Vital Signs (Past 12 Hours) Vital Signs Temp Pulse Pulse Resp BP Pulse Ox 03/03/21 07:01 72 20 123/73 98 03/03/21 06:14 37.2 C 81 17 161/82 H 97 03/03/21 03:00 36.7 C 65 16 139/76 96 03/02/21 22:30 37.0 C 72 17 137/77 96 03/02/21 22:19 68 Laboratory Results 10/05/21 10/05/21 10/05/21 Range/Units 06:19 06:18 06:18 WBC (4.8-10.8) K/uL RBC (4.2-5.4) M/uL Hgb (12.0-16.0) g/dL Hct (37-47) % MCV (80-100) fL MCH (25-34) pg MCHC (32-36) g/dL RDW Std Deviation (36.4-46.3) fL RDW Coeff of Garrett (11.5-14.5) % Plt Count (130-400) K/uL MPV (7.4-10.4) fL PT 10.8 (9.0-12.0) Seconds INR 1.1 (0.9-1.1) APTT Pending PTT Ratio Pending Sodium 140 (136-145) mmol/L Potassium 4.0 (3.5-5.1) mmol/L Chloride 107 (98-107) mmol/L Carbon Dioxide 23 (21-32) mmol/L Anion Gap 10.0 (3-11) BUN 14 (7-18) mg/dl Creatinine 0.80 (0.6-1.2) mg/dl Est Cr Clr Drug Dosing 47.2 ml/min Est GFR ( Amer) 81.8 ml/min Est GFR (Non-Af Amer) 70.6 ml/min BUN/Creatinine Ratio 17.7 (10-20) Glucose 98 (70-99) mg/dl POC Glucose 101 H (70-99) mg/dl Calcium 8.2 L (8.5-10.1) mg/dl Phosphorus 2.7 (2.5-4.9) mg/dl Magnesium 2.2 (1.8-2.4) mg/dl Total Bilirubin 0.7 (0.2-1) mg/dl AST 64 H (15-37) U/L ALT 47 (12-78) U/L Alkaline Phosphatase 274 H (45-117) U/L Troponin I (0-0.045) ng/ml Total Protein 6.0 L (6.4-8.2) gm/dl Albumin 2.4 L (3.4-5.0) gm/dl Globulin 3.6 (2.5-4.0) gm/dl Albumin/Globulin Ratio 0.7 L (0.9-2) 03/03/21 03/02/21 03/02/21 Range/Units 06:18 17:53 17:53 WBC 11.19 H (4.8-10.8) K/uL RBC 3.41 L (4.2-5.4) M/uL Hgb 9.9 L 9.8 L (12.0-16.0) g/dL Hct 30.5 L 29.6 L (37-47) % MCV 89.4 (80-100) fL MCH 29.0 (25-34) pg MCHC 32.5 (32-36) g/dL RDW Std Deviation 48.7 H (36.4-46.3) fL RDW Coeff of Garrett 15.3 H (11.5-14.5) % Plt Count 134 (130-400) K/uL MPV 9.8 (7.4-10.4) fL PT (9.0-12.0) Seconds INR (0.9-1.1) APTT PTT Ratio Sodium (136-145) mmol/L Potassium (3.5-5.1) mmol/L Chloride (98-107) mmol/L Carbon Dioxide (21-32) mmol/L Anion Gap (3-11) BUN (7-18) mg/dl Creatinine (0.6-1.2) mg/dl Est Cr Clr Drug Dosing ml/min Est GFR ( Amer) ml/min Est GFR (Non-Af Amer) ml/min BUN/Creatinine Ratio (10-20) Glucose (70-99) mg/dl POC Glucose (70-99) mg/dl Calcium (8.5-10.1) mg/dl Phosphorus (2.5-4.9) mg/dl Magnesium (1.8-2.4) mg/dl Total Bilirubin (0.2-1) mg/dl AST (15-37) U/L ALT (12-78) U/L Alkaline Phosphatase (45-117) U/L Troponin I 1.510 H* (0-0.045) ng/ml Total Protein (6.4-8.2) gm/dl Albumin (3.4-5.0) gm/dl Globulin (2.5-4.0) gm/dl Albumin/Globulin Ratio (0.9-2) Medications Administered Current Inpatient Medications Dextrose/Lactated Ringer's (D5w And Lactated Ringers) 1,000 mls @ 60 mls/hr IV .[id number] [facility] Stop: 04/02/21 07:14 Sodium Chloride (Nss 1000ml) 500 mls @ 999 mls/hr IV .[id number] ONE Stop: 03/03/21 09:37 Last Admin: 03/03/21 09:15 Dose: 999 mls/hr Documented by: Levothyroxine Sodium (Levothyroxine Sodium 75 Mcg Tablet) 75 mcg PO DAILYBB [facility] Stop: 04/01/21 06:29 Last Admin: 03/03/21 06:30 Dose: Not Given Documented by: (1) Acute pulmonary embolism Acute cor pulmonale presence: unspecified Pulmonary embolism type: unspecified Qualified Code(s): I26.99 - Other pulmonary embolism without acute cor pulmonale (2) GI bleed GI bleed type/associated pathology: unspecified gastrointestinal hemorrhage type Qualified Code(s): K92.2 - Gastrointestinal hemorrhage, unspecified
--- NOTE | 2021-03-03 09:57 | Billing Data ---
Date of Service March 03, 2021 Coding Level of Care Code Critical Care 1st - mins
[2021-03-03 10:24] LABS: Partial Thromboplastin Time 53.2 Seconds (21.0-31.0)
[2021-03-03] MEDS: HEPARIN SODIUM/DEXTROSE 25,000 UNITS/500 ML BAG IV SCH (10:32)
--- NOTE | 2021-03-03 10:57 | Gastroenterology Progress Note ---
Date of Service March 03, 2021 Assessment & Plan (1) Liver lesion: Plan: When stabilized would consider IR liver bx as sedation not needed with that approach. Will watch peripherally. Please let us know if we can be of an assistance. Admission and Anticipated Discharge Date Admission Date: March 01, 2021 Subjective Presented for weakness. Imaging with liver lesions. Anemic. Plan was for EGD/Eus for tissue sampling, but has had left sided weakness. EGD/EUS cancelled. Hb 7 on arrival, + 2 units of RBCs, -> 9 today. No gross GI bleeding. No abdominal pain. Review of Systems Review of Systems: ROS: Gen: +Weakness. No fevers, weight loss Eyes: No eye redness, or pain, no recent vision changes Resp: No SOB, no cough Cardio: No palpitations/irregular beats, no chest pain GI: No abdominal pain, no nausea/vomiting : Denies pain on urination Skin: No jaundice, itching or new rashes Neuro: left sided facial dropping and minimal left upper ext strength Physical Exam Constitutional: well developed and cooperative Eyes: PERRL, conjunctivae normal, anicteric sclerae Respiratory: normal respiratory effort, lungs clear to auscultation Cardiovascular: RRR, no murmur, no edema Gastrointestinal (Abdomen): normal bowel sounds, soft, nontender, no hepatosplenomegaly Skin: no rashes, warm and dry normal turgor and + pallor Neurologic: PERRL, EOMI, accommodation nl, no face palsy, no dysarthria awake; not confused Psychiatric: A+Ox3, euthymic affect Orientation: alert, oriented x 3 and cooperative Results & Data ([facility]) Vital Signs (Past 12 Hours) Vital Signs Temp Pulse Resp BP Pulse Ox 03/03/21 07:01 72 20 123/73 98 03/03/21 06:14 37.2 C 81 17 161/82 H 97 03/03/21 03:00 36.7 C 65 16 139/76 96 Laboratory Results T bili 0.7, AST 115, ALT 138, ALk Phos 138 WBC 11, Hb 9.9, Hct 30, lts 139, INR 1.1, Na 140, K 4.0, Cl 107, CO2 23, BUN 14, Cr 0.8, glucose 98. Diagnostic Findings CTAP with IV contrast on 03/01/21: 1. Innumerable hypodensities in the liver are compatible with metastatic disease with unknown primary. 2. Tiny splenic infarct.
[2021-03-03] MEDS ORDERED: GADOBUTROL 65ML VIAL IV ONE (11:44)
--- NOTE | 2021-03-03 12:19 | Magnetic Resonance Report ---
MR brain wo/w con HISTORY: 80 years-old Female CVA . Acute strokelike symptoms. Lightheadedness and dizziness with rec ent fall COMPARISON: Head CT with CTA had and neck of same day TECHNIQUE: Multiplanar multisequence MRI the brain was obtained both with and without the use of 6.0 mL Gadavist FINDINGS: Supply Specialist localizer images demonstrate no gross extracranial abnormality. There are numerous punctate foc i of restricted diffusion involving the bilateral frontal lobes near the vertex within both the anter ior middle cerebral artery distributions. This includes a 3.4 cm area of restricted diffusion within the right frontal lobe on image 16. There are additional tiny foci of punctate restricted diffusion w ithin the bilateral parietal occipital lobes these areas demonstrate decreased signal on ADC map with mildly increased T2/FLAIR signal. No acute intracranial hemorrhage, midline shift, abnormal extra axial collection, hydrocephalus or in tra-axial mass. With foci of restricted diffusion within the cerebellar hemispheres measuring up to 1 .5 cm on the right. There is mild flattening involving the ventral aspect of the medullary brainstem. Possible underlying arachnoid cyst. Partially empty sella. Age-related involutional changes. Mild pa tchy T2/FLAIR hyperintensities are noted throughout the white matter suggestive of chronic microvascu lar ischemic disease. No pathologic blooming artifact. No abnormal enhancement. Cerebral venous sinuses and major arterial flow voids are patent. Trace mastoid effusions. Mild mucos al thickening of the nasal turbinates and paranasal sinuses. Prior bilateral lens repair. Unremarkabl e skull and soft tissues. IMPRESSION: 1. Numerous small acute infarcts of the cerebral and cerebellar hemispheres within a multiple vascula r distribution are likely embolic with a proximal source. 2. Age-related involutional changes with mild chronic microvascular ischemic disease. 3. No abnormal enhancement. ACT 112: Negative or not required by law. The above report was generated using voice recognition software. It may contain grammatical, syntax o r spelling errors. Electronically signed by: Diaz Grande M.D. 03/03/2021 12:17 PM
--- NOTE | 2021-03-03 12:21 | Neurology Consultation ---
Date of Consultation March 03, 2021 Assessment & Plan (1) CVA (cerebral vascular accident): 1. continue heparin gtt no bolus 2. liberal blood pressure 3. then slowly normalize, HLD, DM LDL <70 4. PT/OT speech for discharge needs 5. close observation at this time 6. no ASD likely hypercoag state 7. GI for further liver work up once safe to proceed. 8. repeat CT head tomorrow 9. transition to DOAC if appropriate and then CT head with mental status change (2) Liver lesion: 1. GI on board (3) Acute pulmonary embolism: Supervising Physician Co-Signing Physician Notes .I have seen and discussed above patient with Dr Rupinder Banks, neurology. The patient was seen and examined. History reviewed. Patient has a history of vascular risk factors no prior history of stroke although at age 32 she was thought to perhaps have a transient ischemic attack. On this background she is lost about 6 or 7 pounds over the last several months and noted with exertion especially going up steps that she would feel lightheaded Because of ongoing lightheadedness she came to the hospital and was found to be profoundly anemic with heme positive stool. Lower extremity Doppler revealed DVT and CTA of the chest revealed a pulmonary embolism. CT of the right liver suggested multiple metastatic lesions. The patient was on heparin and it was discontinued overnight in anticipation of an EGD. This morning the patient had dysarthria possibly aphasia and left arm weakness. A stroke alert was called. CTA of the head and neck were unremarkable. MRI of the brain showed multiple presumably embolic infarcts in the bilateral cerebellum primarily in the right MCA in a patchy distribution in the bilateral cortex no enhancing lesions were noted She has had no headache and has no headache now. Heparin was restarted. An echo had the addition of a bubble study which showed no PFO. The patient feels she is improving. On exam she is awake and alert speech is dysarthric but not aphasic. There are no carotid bruits no heart murmurs. Normal visual kovacs no visual extinction modest flattening of the left nasolabial fold. Left product development carpenter strength is about 0 trace biceps although she is able to briefly hold the left arm antigravity. Left lower extremity is about 4+ out of 5. Reflexes are symmetric in the lower downgoing toes no sensory loss to light touch no double simultaneous extinction. She is not dystaxic on right [id number] or [id number]. Gait was not testable Right MCA infarction, acute patchy with multiple bilateral infarcts suggestive of embolic phenomenon. Although the patient has a DVT and PE there is no PFO. This argues for hypercoagulable state. Agree with anticoagulation with heparin with no bolus. I would repeat a CT of the head tomorrow. This should be done to rule out a hemorrhagic transformation. If the patient has an abrupt change in mentation or neurologic exam she should have a stat CT of the head. Defer to hospitalist team regarding the best anticoagulant in the setting of cancer and hypercoagulable state. I would wait 48 hours before attempting the switch either to Lovenox or a DOAC. Will follow with you Rupinder Banks MD History of Present Illness Reason for Consultation: stroke alert Requesting Physician: Chris Murphy MD Attending Physician: Chris Murphy MD History of Present Illness Amanda is a 80 year old female who presents to [facility] 03/01/2021 for near syncopal event. She got in the shower and got very warm and hot, felt lightheaded. She fell but did not hit her head or neck. She was found to have liver lesions and a EGD/EUS for tissue sampling was scheduled , but has had left sided weakness. EGD/EUS cancelled. MRI revealed multiple hemispheric stroke. She is currently on heparin gtt. She is alert and recognizes the examiner when walking into room. denies CP, SOB abdominal pain, N, V. headache. +left arm and leg weakness Allergies Allergy/AdvReac Type Severity Reaction Status Date / Time No Known Allergies Allergy Unverified 03/01/21 07:49 Home Medications Medication Instructions Recorded Confirmed Type B360 Probiotic 1 cap PO QAM 03/01/21 03/01/21 History cholecalciferol (vitamin D3) 50 50 mcg PO QAM 03/01/21 03/01/21 History mcg (2,000 unit) capsule (Vitamin D3) levothyroxine 75 mcg tablet 75 mcg PO DAILYBB 03/01/21 03/01/21 History (Synthroid) lorazepam 1 mg tablet (Ativan) 1 mg SUBLINGUAL UD 03/01/21 03/01/21 History pravastatin 10 mg tablet 10 mg PO HS 03/01/21 03/01/21 History Patient History Medical History CKD (chronic kidney disease) stage 3, GFR 30-59 ml/min Hyperlipidemia Hypothyroidism (acquired) Palliative care encounter Weakness Surgical History Hx of cataract surgery S/P laser trabeculoplasty of eye Social History Smoking Status: Never smoker Hx Alcohol Use: Yes Hx Substance Use: No Preferred Language: Romanian Communication Ability: Effective marital status: Current Living Situation: Spouse How many Children do You have: 3 Feels Safe at Home: Yes Safety Concerns: Feels Safe At This Time Assistive Devices: None Review of Systems Review of Systems: All systems reviewed & are unremarkable except as noted in HPI & below Physical Exam Physical Exam: Physical Exam: Constitutional: appearance nourished, healthy Ears, Nose, Mouth and Throat: mucous membranes moist, no injection and skin normal, eyes normal Cardiovascular: normal S-1 and S-2 and regular rate and rhythm Respiratory: clear to auscultation (CTA) and no rales, ronchi or wheeze Musculoskeletal: no peripheral edema and good distal pulses Skin: no stigmata of neurocutaneous disease noted and normal and intact Eyes: extraocular muscles intact (EOMI) and pupils equal, round and reactive to light (PERRL), gross peripheral vision intact NEUROLOGIC EXAMINATION: Mental status: Alert and interactive Oriented February, needs to buy Charan presents soon, identifies thumb, stethascope Oriented to person Speech dysarthric Cranial Nerves left sided facial droop, flattening of nasolabial fold left Reflexes: Deep tendon reflexes were symmetrical and graded 2/5. Sensory: light cool touch intact Coordination: finger to nose right intact Gait/Stance: Posture lying in bed Motor: able to hold left arm up once above head Strength: hand product development carpenter right 5/5, left 0/5, deltoid 5/5 right left 4/5, hip flex right 5/5 left 4+/5, plantar flex ext 5/5 Results & Data ([facility]) Vital Signs (Past 12 Hours) Vital Signs Temp Pulse Pulse Resp BP BP Pulse Ox 03/03/21 12:10 86 15 128/74 97 03/03/21 12:02 80 21 98 03/03/21 10:55 98 03/03/21 10:52 72 18 149/75 H 99 03/03/21 10:38 76 18 118/93 99 03/03/21 10:07 72 22 130/75 97 03/03/21 09:37 65 18 124/62 95 03/03/21 09:07 72 20 142/64 H 96 03/03/21 08:37 75 20 133/81 96 03/03/21 08:07 75 25 H 143/71 H 98 03/03/21 07:01 72 20 123/73 98 03/03/21 06:14 37.2 C 81 17 161/82 H 97 03/03/21 03:00 36.7 C 65 16 139/76 96 Laboratory Results Abnormal lab results 03/02/21 03/02/21 03/03/21 Range/Units 17:53 17:53 06:18 WBC 11.19 H (4.8-10.8) K/uL RBC 3.41 L (4.2-5.4) M/uL Hgb 9.8 L 9.9 L (12.0-16.0) g/dL Hct 29.6 L 30.5 L (37-47) % RDW Std Deviation 48.7 H (36.4-46.3) fL RDW Coeff of Garrett 15.3 H (11.5-14.5) % APTT (21.0-31.0) Seconds POC Glucose (70-99) mg/dl Calcium (8.5-10.1) mg/dl AST (15-37) U/L Alkaline Phosphatase (45-117) U/L Troponin I 1.510 H* (0-0.045) ng/ml Total Protein (6.4-8.2) gm/dl Albumin (3.4-5.0) gm/dl Albumin/Globulin Ratio (0.9-2) 03/03/21 03/03/21 03/03/21 Range/Units 06:18 06:18 06:19 WBC (4.8-10.8) K/uL RBC (4.2-5.4) M/uL Hgb (12.0-16.0) g/dL Hct (37-47) % RDW Std Deviation (36.4-46.3) fL RDW Coeff of Garrett (11.5-14.5) % APTT 53.2 H* (21.0-31.0) Seconds POC Glucose 101 H (70-99) mg/dl Calcium 8.2 L (8.5-10.1) mg/dl AST 64 H (15-37) U/L Alkaline Phosphatase 274 H (45-117) U/L Troponin I (0-0.045) ng/ml Total Protein 6.0 L (6.4-8.2) gm/dl Albumin 2.4 L (3.4-5.0) gm/dl Albumin/Globulin Ratio 0.7 L (0.9-2) Diagnostic Findings TTE- 65-[address] A/P- Innumerable hypodensities in the liver are compatible with metastatic disease with unknown primary. Tiny splenic infarct. CT [id number] pulmonary emboli. Small peripheral groundglass density within the right lung base which may represent a developing pulmonary infarct. There are 2 subcentimeter indeterminate pulmonary nodules measure up to 4 mm. Please refer to the chart below for recommended follow-up. Trace right pleural effusion. Multiple hepatic lesions concerning for metastatic disease. Otherwise, please refer to the same day abdomen and pelvis CT for further evaluation of the abdominal structures. CTA head-No central vessel occlusion. No intracranial aneurysm. CTA neck-No stenosis or dissection within the bilateral common carotid, cervical internal carotid or vertebral arteries. MRI brain-Numerous small acute infarcts of the cerebral and cerebellar hemispheres within a multiple vascular distribution are likely embolic with a proximal source. Age-related involutional changes with mild chronic microvascular ischemic disease. No abnormal enhancement. (1) Acute pulmonary embolism Acute cor pulmonale presence: unspecified Pulmonary embolism type: unspecified Qualified Code(s): I26.99 - Other pulmonary embolism without acute cor pulmonale
--- NOTE | 2021-03-03 12:28 | Palliative Care Consultation ---
Date of Consultation March 03, 2021 Assessment & Plan (1) Palliative care encounter: Ms. Black is a 80 year old female who presented to the [facility] after she was at home and experiencing increased shortness of breath, dizziness and weakness that apparently has been going on for a few months. She claims she was at home in the shower and became lightheaded and lowered herself to the floor. The patient was a stroke alert overnight as she started to have left sided weakness. [facility] consult was held. A head CT was negative and an MRI revealed multiple hemispheric strokes. She is otherwise relatively well and has not been in the hospital since she birthed her children. She has a PE and was placed on a Heparin gtt. Her hemoglobin was low and she received 2UPBC. Additional PMH includes HLD, hypothyroidism, CKD3. Palliative Medicine was consulted to discuss overall goals of care. The patient was seen and evaluated in room 111 in the ICU. She was very tearful during or interaction. She said that this has been a lot to process and manage and it has brought back a lot of emotion from her mothers . She said that her mother was diagnosed with cancer and three months later but did not pursue treatment. She said that she does not like advanced medicine and wants things to 'take its course'. I did discuss biopsy and looking at how advanced her condition would be, if she would, indeed have malignancy. For now, we are waiting to see if any of her neurologic condition worsens and revisit tissue obtaining for biopsy. Prior to coming to the hospital, she is independent with her ADL's. I did revisit her code status and she was clear that in the event of cardiac or respiratory arrest, she would not want aggressive CPR or intubation taken, including shocks, vasoactive medications, etc. DNR/DNI already reflected in the computer. I was able to talk to the patients daughter, Anita at [phone] and then afterwards, another daughter named Caren. All information was given regarding the MRI after discussion with Dr. Murphy. Confirmed that she would not want resuscitative efforts taken in the event they were required. 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 She was anoited by Father Rui this afternoon from [facility] which is where she attends services. In the event things are looking like she is declining, family has indicated they would prefer she be at home with hospice support. Confirmed that visitation would be readdressed if she declines and is transitioned to a more comfort direct approach to her care. For now, no visitation but family has been talking to her on the phone. For now, she is able to eat and drink in front of me and has some mild left sided weakness. Monitor and continue to assist patient and family with goals of care as her condition evolves. All of the above discussed with the video game technician, hospitalist, case management and nursing. (2) Liver lesion: (3) Acute pulmonary embolism: Acute cor pulmonale presence: unspecified Pulmonary embolism type: unspecified Qualified Code(s): I26.99 - Other pulmonary embolism without acute cor pulmonale (4) Acute blood loss anemia: (5) Weakness: History of Present Illness Reason for Consultation: Goals of care Requesting Physician: Dr. Stokes Attending Physician: Chris Murphy MD History of Present Illness Ms. Black is a 80 year old female who presented to the [facility] after she was at home and experiencing increased shortness of breath, dizziness and weakness that apparently has been going on for a few months. She claims she was at home in the shower and became lightheaded and lowered herself to the floor. The patient was a stroke alert overnight as she started to have left sided weakness. [facility]ene[facility] consult was held. A head CT was negative and an MRI revealed multiple hemispheric strokes. She is otherwise relatively well and has not been in the hospital since she birthed her children. She has a PE and was placed on a Heparin gtt. Her hemoglobin was low and she received 2UPBC. Additional PMH includes HLD, hypothyroidism, CKD3. Palliative Medicine was consulted to discuss overall goals of care. Please see A/P for further details. Thanks for involving Palliative Medicine with this individual. Allergies Allergy/AdvReac Type Severity Reaction Status Date / Time No Known Allergies Allergy Unverified 03/01/21 07:49 Home Medications Medication Instructions Recorded Confirmed Type B360 Probiotic 1 cap PO QAM 03/01/21 03/01/21 History cholecalciferol (vitamin D3) 50 50 mcg PO QAM 03/01/21 03/01/21 History mcg (2,000 unit) capsule (Vitamin D3) levothyroxine 75 mcg tablet 75 mcg PO DAILYBB 03/01/21 03/01/21 History (Synthroid) lorazepam 1 mg tablet (Ativan) 1 mg SUBLINGUAL UD 03/01/21 03/01/21 History pravastatin 10 mg tablet 10 mg PO HS 03/01/21 03/01/21 History Patient History Medical History CKD (chronic kidney disease) stage 3, GFR 30-59 ml/min Hyperlipidemia Hypothyroidism (acquired) Palliative care encounter Weakness Surgical History Hx of cataract surgery S/P laser trabeculoplasty of eye Social History Smoking Status: Never smoker Hx Alcohol Use: Yes Hx Substance Use: No Preferred Language: Khmer Communication Ability: Effective marital status: Current Living Situation: Spouse How many Children do You have: 3 Feels Safe at Home: Yes Safety Concerns: Feels Safe At This Time Assistive Devices: None Review of Systems Review of Systems: [place] System Assessment Scale: Pain: 0/3 Anxiety: 2/3 Nausea: 0/3 Lack of Appetite: 0/3 Tiredness: 0/3 Palliative Performance Scale: 40% Physical Exam Constitutional: + frail appearing, cooperative and comfortable ENMT: Mouth: + dry oral mucous membranes Respiratory: normal respiratory effort Cardiovascular: Rate/Rhythm: regular rate and regular rhythm Heart Sounds: normal S1 and normal S2 Extremities: normal capillary refill; no edema Gastrointestinal (Abdomen): Inspection/Auscultation: abdomen normal to inspection Psychiatric: Orientation: alert and oriented x 3 Insight: good insight Judgement: good judgement Results & Data ([facility]) Vital Signs (Past 12 Hours) Vital Signs Temp Pulse Pulse Resp BP BP Pulse Ox 03/03/21 12:10 86 15 128/74 97 03/03/21 12:02 80 21 98 03/03/21 10:55 98 03/03/21 10:52 72 18 149/75 H 99 03/03/21 10:38 76 18 118/93 99 03/03/21 10:07 72 22 130/75 97 03/03/21 09:37 65 18 124/62 95 03/03/21 09:07 72 20 142/64 H 96 03/03/21 08:37 75 20 133/81 96 03/03/21 08:07 75 25 H 143/71 H 98 03/03/21 07:01 72 20 123/73 98 03/03/21 06:14 37.2 C 81 17 161/82 H 97 03/03/21 03:00 36.7 C 65 16 139/76 96 PG Care Time/CCT Total # of Minutes Spent Total Time Spent with Patient: Total time spent is greater than 50% in coordination of care (as documented) at patient's floor/unit and/or counseling patient: 100 minutes with > 50% of that time spent assessing the patient, discussing goals of care, and collaborating with IDT Coding Level of Care Code 81932 Initial Inpt Care Lvl 3 Diagnoses Palliative care encounter Z51.5 Liver lesion K76.9 Acute pulmonary embolism I26.99 Acute cor pulmonale presence: unspecified Pulmonary embolism type: unspecified Acute blood loss anemia D62 Weakness R53.1 Time Spent (min) 100
[2021-03-03 16:43] LABS: Partial Thromboplastin Ratio 1.7; Partial Thromboplastin Time 43.6 Seconds (21.0-31.0)
[2021-03-03 19:01] LABS: Hematocrit (blood only) 30.8 % (37-47); Hemoglobin 9.9 g/dL (12.0-16.0); Mean Corpuscular Hemoglobin 28.6 pg (25-34); Mean Corpuscular Hgb Conc 32.1 g/dL (32-36); Mean Platelet Volume 10.4 fL (7.4-10.4); Platelet Count 154 K/uL (130-400); RDW Coefficient of Variation 15.7 % (11.5-14.5); RDW Standard Deviation 49.4 fL (36.4-46.3); Red Blood Count 3.46 M/uL (4.2-5.4); White Blood Count 12.66 K/uL (4.8-10.8)
[2021-03-03] MEDS: PRAVASTATIN SOD 10 MG TAB PO SCH (20:27)
[2021-03-03 23:24] LABS: Partial Thromboplastin Time 51.5 Seconds (21.0-31.0)
[2021-03-04 05:09] LABS: INR 1.1 (0.9-1.1); Prothrombin Time 10.9 Seconds (9.0-12.0)
[2021-03-04 05:42] LABS: BUN Creatinine Ratio 23.3 (10-20); Calcium 8.2 mg/dl (8.5-10.1); Creatinine Clr Calc Pharmacy 48.4 ml/min; Est GFR (African American) 84.4 ml/min; Est GFR (Non-African American) 72.8 ml/min; Magnesium 2.3 mg/dl (1.8-2.4); Potassium 3.8 mmol/L (3.5-5.1)
[2021-03-04 05:47] LABS: Phosphorus 2.6 mg/dl (2.5-4.9)
[2021-03-04 06:06] LABS: Basophils # (auto) 0.03 K/uL (0-0.2); Basophils % (auto) 0.2 %; Eosinophils % (auto) 0.8 %; Hematocrit (blood only) 27.9 % (37-47); Immature Granulocytes # (auto) 0.03 K/uL (0.00-0.02); Immature Granulocytes % (auto) 0.2 %; Lymphocytes % (auto) 8.3 %; Mean Corpuscular Hemoglobin 29.1 pg (25-34); Mean Corpuscular Hgb Conc 32.3 g/dL (32-36); Mean Corpuscular Volume 90.3 fL (80-100); Mean Platelet Volume 10.2 fL (7.4-10.4); Monocytes # (auto) 0.89 K/uL (0.11-0.59); Monocytes % (auto) 6.7 %; Neutrophils # (auto) 11.07 K/uL (1.4-6.5); Neutrophils % (auto) 83.8 %; Platelet Count 150 K/uL (130-400); RDW Coefficient of Variation 15.6 % (11.5-14.5); RDW Standard Deviation 49.7 fL (36.4-46.3); Red Blood Count 3.09 M/uL (4.2-5.4); White Blood Count 13.22 K/uL (4.8-10.8)
[2021-03-04 07:26] LABS: Estimated Average Glucose 108 mg/dl; Hemoglobin A1C 5.4 % (4.5-5.6)
[2021-03-04] MEDS: LEVOTHYROXINE SODIUM 75 MCG TABLET PO SCH (07:56)
[2021-03-04 08:00] LABS: Partial Thromboplastin Ratio 1.9
[2021-03-04 08:15] LABS: Partial Thromboplastin Time 49.9 Seconds (21.0-31.0)
--- NOTE | 2021-03-04 12:07 | CT Scan Report ---
CT OF THE HEAD WITHOUT CONTRAST CLINICAL HISTORY: follow up cva COMPARISON STUDY: Head CT, CTA of the head and MRI the brain March 03, 2021. CT DOSE: 638.56 mGycm TECHNIQUE: Helical axial images of the head were obtained without IV contrast. Automated exposure con trol was utilized for the study. A dose lowering technique was utilized adhering to the principles o f ALARA. FINDINGS: No acute intracranial hemorrhage, midline shift or mass effect is present. A right frontal lobe acute infarct is noted, as shown on MRI of March 03, 2021. An acute infarct within the right ce rebellar hemisphere is also noted. Small infarct shown on brain MRI are not well-visualized by PET/CT . The ventricular system is unremarkable. The basal cisterns are patent. No extra-axial collections a re present. There are no findings to suggest acute dural sinus thrombosis or acute territorial infarc t. No significant calvarial abnormalities are present. Visualized portions of the sinuses and mastoid air cells are clear. IMPRESSION: Redemonstration of several acute infarcts better depicted on MRI of March 03, 2021. No acute hemorrh age. No significant mass effect. ACT 112: Negative or not required by law. Electronically signed by: Carlos Pitts M.D. 03/04/2021 12:06 PM
[2021-03-04] MEDS: HEPARIN SODIUM/DEXTROSE 25,000 UNITS/500 ML BAG IV SCH (14:58)
--- NOTE | 2021-03-04 15:28 | Hospitalist Progress Note ---
Date of Service March 04, 2021 Assessment & Plan (1) CVA (cerebral vascular accident): (2) GI bleed: (3) Acute pulmonary embolism: Plan: 80-year-old female with history of hyperlipidemia, hypothyroidism, CKD stage III, who presented 03/01 for near syncopal event. She got in shower and got very warm/hot, then lightheaded, then fell to the ground/lowered herself down without injuring herself. She is being managed for the following: #. 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 Patient never had colonoscopy due to radiotracer prep. Likely chronic GI bleed. Presenting FOBT positive. Presenting hemoglobin 7.0. Status post 2 unit PRBC. GI consulted and offered colonoscopy but patient refused. Patient was planned to undergo EGD EUS on 03/03 and heparin was held for the same but she was stroke alert on 03/03 AM and the EGD was canceled. Further GI procedures postponed until patient is stable. Patient currently on heparin drip for stroke, hemoglobin stable around 9 Patient heart healthy diet. Continue to monitor hemoglobin daily and as needed. #. Stroke patient was stroke alert 03/03 morning (When being woken up by the nurse @0615 HRS, patient had difficulty speaking/expressing herself), and has some neurological deficits, left face and LUE weakness was noted. Was able to move left arm on the day. 03/03 CT head, CTA head and neck negative 03/03 MRI Head: Numerous small acute infarcts of the cerebral and cerebellar hemispheres within a multiple vascular distribution are likely embolic with a proximal source. 03/03 echo: EF 65 to 70%, no interatrial shunt noted. f/u 03/04 CT Head: Redemonstration of several acute infarcts better depicted on MRI of March 03, 2021. No acute hemorrhage. No significant mass effect. At bedside, patient can articulate - some dysarthria, not able to move her left upper extremity, power on left lower extremity /. 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 Due to absence of PFO in echo, could be hypercoagulable state. Neurology on board: Agrees with heparin, recommend switch to either Lovenox or DOAC after 48 hours. Will get in touch with Dr. Lumadue tomorrow for appropriate anticoagulation for her. Continue with heparin for now. #. Acute PE #. DVT Admitting CTA chest was positive for right-sided pulmonary emboli Admitting US Doppler was positive for bilateral DVT Admitting Echo obtained - EF 65 to 70%. RV is normal size. RV systolic function is normal. Admitting hemoglobin 7.0, status post 2 unit, heparin drip started without bolus. Continue heparin. #. Abnormal CT scan 03/01 CTAP: Multiple lesions in liver, concerning for possible metastatic/malignant process Patient and daughter aware GI consulted: Recommends possible IR biopsy of the liver when stable. #. Elevated troponin: -likely secondary to above -Patient has no chest pain and no history of chest pain -Echocardiogram as above #. Elevated INR: - secondary to underlying process (as above) -Continue to closely monitor INR #. Hypothyroidism Continue levothyroxine #. CKD stage III Monitor kidney function while inpatient #. Hyperlipidemia -Hold statin for now Code: DNR/DNI Disposition: PT/OT recs, CM to assist with DC planning. Admission and Anticipated Discharge Date Admission Date: March 01, 2021 Subjective Patient was sitting up in chair, room air, NAD, AOx3, no issues overnight. Patient reports feeling same as yesterday. Patient is eating okay and has moved bowels todayreports no blood in it but cannot comment on the color of the stool. Patient denies any headache/chest pain/any other review of symptoms. Physical Exam Physical Exam: GENERAL: Alert and oriented x3. NAD, on RA. HEENT: No pallor, no icterus. Pupils equal, round and reactive to light. Oral mucosa moist. Face: Flattening of left nasolabial fold, frowning and eye closing preserved. Tongue deviation to the left. NECK: No JVD, no neck masses. HEART: S1 and S2 heard. Regular rate and rhythm. No murmur, no gallop. RESPIRATORY SYSTEM: Normal AP diameter. No accessory muscle use. No wheezing, no crackles. ABDOMEN: Soft, bowel sounds present, nontender, no distention. CENTRAL NERVOUS SYSTEM: Left facial droop. Speech is clear. Obeys simple commands. LUE 0/5, LLE 3/5. EXTREMITIES: No edema, no erythema seen. Results & Data Results & Data ([facility]) Vital Signs (Past 12 Hours) Vital Signs Temp Pulse Pulse Resp BP BP Pulse Ox 03/04/21 10:30 36.4 C L 78 23 98 03/04/21 10:00 70 20 97 03/04/21 09:45 74 20 97 03/04/21 08:41 87 23 97 03/04/21 07:45 36 C L 80 24 140/77 96 03/04/21 07:31 80 26 H 140/77 97 03/04/21 03:38 37.2 C 74 20 120/64 97 (1) GI bleed GI bleed type/associated pathology: unspecified gastrointestinal hemorrhage type Qualified Code(s): K92.2 - Gastrointestinal hemorrhage, unspecified (2) Acute pulmonary embolism Acute cor pulmonale presence: unspecified Pulmonary embolism type: unspecified Qualified Code(s): I26.99 - Other pulmonary embolism without acute cor pulmonale
--- NOTE | 2021-03-04 16:35 | Progress Notes ---
DATE OF SERVICE: 03/04/2021 SUBJECTIVE: I am seeing Mrs. Black in followup of bilateral cerebral and cerebellar infarctions in t he setting of what is likely a hypercoagulable state. The patient's CT of the head does not show any evidence of hemorrhagic transformation. The patient remains on heparin. She denies any headache, b ut is somewhat frustrated because she feels no work is being done for her to improve. She passed her swallowing study and apparently has been taking by mouth adequately. Occasionally, there is coughing , but it is not occurring while eating. OBJECTIVE: On exam, she is awake and alert, cooperative. There is no visual field cut. There is a flattening of the left nasolabial fold. There is minimal movement of the left arm, but she is able t o sustain it briefly antigravity, which suggests a component of neglect. The left lower extremity is probably 3+ to 4, which is a little bit weaker than it had been. No sensory abnormalities are noted . IMPRESSION AND PLAN: Multiple cerebral infarctions in the setting of an undiagnosed metastatic cance r with deep venous thrombosis, pulmonary embolism, and no patent foramen ovale. Agree with ongoing u se of heparin. If the patient were to change or develop a headache, repeat imaging would need to be performed to rule out hemorrhagic transformation. I would recommend a followup CT if she has changed or prior to switching from heparin to another agent such as Lovenox or a direct oral anticoagulant. It would be best if whatever is chosen is reversible. I reinforced to the patient that we are order ing and we will have her see physical therapy and occupational therapy. I answered all questions. Job ID: [id number]
[2021-03-04] MEDS: PRAVASTATIN SOD 10 MG TAB PO SCH (20:21)
[2021-03-05 05:56] LABS: Hematocrit (blood only) 25.4 % (37-47); Hemoglobin 8.2 g/dL (12.0-16.0); Mean Corpuscular Hemoglobin 28.5 pg (25-34); Mean Corpuscular Hgb Conc 32.3 g/dL (32-36); Mean Corpuscular Volume 88.2 fL (80-100); Platelet Count 154 K/uL (130-400); RDW Coefficient of Variation 15.4 % (11.5-14.5); RDW Standard Deviation 48.7 fL (36.4-46.3); Red Blood Count 2.88 M/uL (4.2-5.4); White Blood Count 11.89 K/uL (4.8-10.8)
[2021-03-05 06:14] LABS: Partial Thromboplastin Ratio 1.9
[2021-03-05] MEDS: LEVOTHYROXINE SODIUM 75 MCG TABLET PO SCH (06:33)
[2021-03-05] MEDS ORDERED: WARFARIN SOD 5 MG TAB PO ONE (08:38)
[2021-03-05] MEDS: HEPARIN SODIUM/DEXTROSE 25,000 UNITS/500 ML BAG IV SCH ×2 (11:54→17:53)
--- NOTE | 2021-03-05 14:12 | Palliative Care Progress Note ---
Date of Service March 05, 2021 Assessment & Plan (1) Weakness: Plan: Working with PT. Would be appropriate for rehab (2) Palliative care encounter: Plan: I talked with Amanda and with her daughter, Caren, by phone. Amanda has had multiple health issues to adjust to in the last few days after not having seen a doctor in some time. She tells me that she hadn't really felt good over the summer but didn't realize how sick she was. She also tells me that she has an advance directive which indicates that she would not want CPR or aggressive care. She tells me that she would not want any machines to keep her alive. In addition, she would not want any life prolonging interventions. "Everybody has to of something". She is quite adamant that she is ready to and would not want to pursue further workup. I spoke with Caren at her request and shared information from our conversation. Caren and the rest of the family are not as comfortable about not having a diagnosis or staging of her probable malignancy. While she does support her decision not to pursue aggressive treatment, she is concerned that Amanda is making this decision from depression relating to her CVA. Amanda does not feel that she is depressed and has purposely avoided medical treatment for several years prior to her CVA. Caren is requesting a family meeting to help other members of the family understand Amanda's perspective on this. We have scheduled a family meeting, by conference call, tomorrow at 10am. (3) CVA (cerebral vascular accident): (4) Acute pulmonary embolism: (5) GI bleed: (6) Liver lesion: Admission and Anticipated Discharge Date Admission Date: March 01, 2021 Subjective Very labile today. Tearful. "I'm not usually this weepy". Denies pain or dyspnea. Appetite poor per RN. Review of Systems Review of Systems: [place] Symptom Assessment Scale Pain0/3 Dyspnea 0/3 Anxiety 1/3 Fatigue 1/3 Nausea 0/3 Drowsiness 0/3 Palliative Performance Score 40% Physical Exam Constitutional: + morbidly obese; no acute distress Respiratory: normal respiratory effort; no labored breathing Cardiovascular: Rate/Rhythm: regular rate and regular rhythm Gastrointestinal (Abdomen): nontender Neurologic: left arm weakness Cognition intact Psychiatric: Affect: + labile affect Results & Data ([facility]) Vital Signs (Past 12 Hours) Vital Signs Temp Pulse Resp BP Pulse Ox 03/05/21 11:52 97.3 F L 89 18 108/61 98 03/05/21 07:59 98.6 F 79 17 141/62 H 99 03/05/21 03:32 98.6 F 80 19 121/74 97 PG Care Time/CCT Total # of Minutes Spent Total Time Spent: 78 Total Time Spent with Patient: Total time spent is greater than 50% in coordination of care (as documented) at patient's floor/unit and/or counseling patient: goals of care, family education and support Coding Level of Care Code 26910 Subseq Hosp Care Lvl 3 Diagnoses Weakness R53.1 Palliative care encounter Z51.5 CVA (cerebral vascular accident) I63.9 Acute pulmonary embolism I26.99 Acute cor pulmonale presence: unspecified Pulmonary embolism type: unspecified GI bleed K92.2 GI bleed type/associated pathology: unspecified gastrointestinal hemorrhage type Liver lesion K76.9 (1) Acute pulmonary embolism Acute cor pulmonale presence: unspecified Pulmonary embolism type: unspecified Qualified Code(s): I26.99 - Other pulmonary embolism without acute cor pulmonale (2) GI bleed GI bleed type/associated pathology: unspecified gastrointestinal hemorrhage type Qualified Code(s): K92.2 - Gastrointestinal hemorrhage, unspecified
--- NOTE | 2021-03-05 14:32 | Hospitalist Progress Note ---
Date of Service March 05, 2021 Assessment & Plan (1) CVA (cerebral vascular accident): (2) GI bleed: (3) Acute pulmonary embolism: Plan: 80-year-old female with history of hyperlipidemia, hypothyroidism, CKD stage III, who presented 03/01 for near syncopal event. She got in shower and got very warm/hot, then lightheaded, then fell to the ground/lowered herself down without injuring herself. She is being managed for the following: #. 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 Patient never had colonoscopy due to resilience to prep. Likely chronic GI bleed. Admitting FOBT positive in ED. Presenting hemoglobin 7.0. Status post 2 unit PRBC. GI consulted and offered colonoscopy but patient refused. Patient was planned to undergo EGD EUS on 03/03 and heparin was held for the same but she was stroke alert on 03/03 AM and the EGD was canceled. Further GI procedures postponed until patient is stable. Upon discussion with GI, they won't prefer Scope until about 2 months from stroke. Patient currently on heparin drip for stroke, hemoglobin stable around 8-9 Patient tolerating diet. Continue to monitor hemoglobin daily and as needed. Transfuse for hemoglobin less than 7. #. Stroke patient was stroke alert 03/03 morning (When being woken up by the nurse @0615 HRS, patient had difficulty speaking/expressing herself), and has some neurological deficits, left face and LUE weakness was noted. Was able to move left arm on the day. 03/03 CT head, CTA head and neck negative 03/03 MRI Head: Numerous small acute infarcts of the cerebral and cerebellar hemispheres within a multiple vascular distribution are likely embolic with a proximal source. 03/03 echo: EF 65 to 70%, no interatrial shunt noted. f/u 03/04 CT Head: Redemonstration of several acute infarcts better depicted on MRI of March 03, 2021. No acute hemorrhage. No significant mass effect. At bedside, patient can articulate - some dysarthria, not able to move her left upper extremity, power on left lower extremity 1-2/5. 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 Due to absence of PFO in echo, could be hypercoagulable state. Neurology on board: Agrees with heparin, recommend switch to either Lovenox or DOAC after [address] head as needed if mentation changes or headache. Phone conversation with Dr. Almodovar 03/05 -recommends transition to warfarin given her circumstances and the need for easy reversibility. Patient given a dose of warfarin 03/05, later during the day D/W with GI for consulting radiology for IR biopsy. We will hold on warfarin for now, await radiology evaluation for biopsy and need 6 hours holding of heparin drip prior to scheduled biopsy. Continue with heparin for now. Follow-up with PT/INR. C/w PT/OT, needs palcement #. Acute PE #. DVT Admitting CTA chest was positive for right-sided pulmonary emboli Admitting US Doppler was positive for bilateral DVT Admitting Echo obtained - EF 65 to 70%. RV is normal size. RV systolic function is normal. Admitting hemoglobin 7.0, status post 2 unit, heparin drip started without bolus. Continue heparin. for anticoagulation - see above. #. Abnormal CT scan 03/01 CTAP: Multiple lesions in liver, concerning for possible metastatic/malignant process Patient and daughter aware GI consulted: Recommends possible IR biopsy of the liver when stable. Radiology consulted for IR biopsy. #. Elevated troponin: -likely secondary to above -Patient has no chest pain and no history of chest pain -Echocardiogram as above #. Elevated INR: - secondary to underlying process (as above) -Continue to closely monitor INR #. Hypothyroidism Continue levothyroxine #. CKD stage III Monitor kidney function while inpatient #. Hyperlipidemia -Hold statin for now Code: DNR/DNI Disposition: PT/OT recs, CM to assist with DC planning. PT recommending Rehab. Admission and Anticipated Discharge Date Admission Date: March 01, 2021 Subjective Patient was lying in bed, on room air, NAD, no issues overnight. Patient feels more weakness in her left lower extremity compared to yesterday. Patient denies headache/fever/chills/chest pain/other review of symptoms. Patient is eating and moving bowels okay. Physical Exam Physical Exam: GENERAL: Alert and oriented x3. NAD, on RA. HEENT: No pallor, no icterus. Pupils equal, round and reactive to light. Oral mucosa moist. Face: Flattening of left nasolabial fold, frowning and eye closing preserved. Tongue deviation to the left. NECK: No JVD, no neck masses. HEART: S1 and S2 heard. Regular rate and rhythm. No murmur, no gallop. RESPIRATORY SYSTEM: Normal AP diameter. No accessory muscle use. No wheezing, no crackles. ABDOMEN: Soft, bowel sounds present, nontender, no distention. CENTRAL NERVOUS SYSTEM: Left facial droop. Speech is clear. Obeys simple commands. LUE 0/5, LLE 1-2/5. RLE weakness on plantar dorsiflexion. EXTREMITIES: No edema, no erythema seen. Results & Data Results & Data ([facility]) Vital Signs (Past 12 Hours) Vital Signs Temp Pulse Resp BP Pulse Ox 03/05/21 11:52 36.3 C L 89 18 108/61 98 03/05/21 07:59 37.0 C 79 17 141/62 H 99 03/05/21 03:32 37 C 80 19 121/74 97 (1) GI bleed GI bleed type/associated pathology: unspecified gastrointestinal hemorrhage type Qualified Code(s): K92.2 - Gastrointestinal hemorrhage, unspecified (2) Acute pulmonary embolism Acute cor pulmonale presence: unspecified Pulmonary embolism type: unspecified Qualified Code(s): I26.99 - Other pulmonary embolism without acute cor pulmonale
--- NOTE | 2021-03-05 15:09 | Neurology Progress Note ---
Date of Service March 05, 2021 Assessment & Plan (1) CVA (cerebral vascular accident): Plan: 1. continue heparin gtt no bolus- transition when appropriate 2. liberal blood pressure 3. then slowly normalize, HLD, DM LDL <70 4. PT/OT speech for discharge needs 5. palliative medicine involve family would like to take her home 6. no ASD likely hypercoag state 7. CT head with mental status change (2) Liver lesion: Plan: 1. GI on board (3) Acute pulmonary embolism: Plan: 1. on heparin gtt Admission and Anticipated Discharge Date Admission Date: March 01, 2021 Supervising Physician Co-Signing Physician Notes I have seen and discussed above patient with Dr Rupinder Banks, neurology Subjective Amanda is a 80 year old female who presents to [facility] ER 03/01/2021 for near syncopal event. She got in the shower and got very warm and hot, felt lightheaded. She fell but did not hit her head or neck. She was found to have liver lesions and a EGD/EUS for tissue sampling was scheduled , but has had left sided weakness. EGD/EUS cancelled. MRI revealed multiple hemispheric stroke. She is currently on heparin gtt. denies CP, SOB abdominal pain, N, V. headache. +left arm and leg weakness Review of Systems Review of Systems: All systems reviewed & are unremarkable except as noted in HPI & below Physical Exam Physical Exam: Physical Exam: Constitutional: appearance ill appearing Ears, Nose, Mouth and Throat: mucous membranes moist, no injection and skin normal, eyes normal Cardiovascular: normal S-1 and S-2 and regular rate and rhythm Respiratory: course breath sounds Musculoskeletal: no peripheral edema and good distal pulses Skin: no stigmata of neurocutaneous disease noted and normal and intact Eyes: extraocular muscles intact (EOMI) and pupils equal NEUROLOGIC EXAMINATION: Mental status: Alert and interactive Oriented February, needs to buy [place] presents soon, identifies thumb, stethoscope Oriented to person Speech dysarthric Cranial Nerves left sided facial droop, flattening of nasolabial fold left Reflexes: Deep tendon reflexes were symmetrical and graded 2/5. 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, left 0/5, deltoid 2/5 right left 4/5, hip flex right 5/5 left 4+/5, plantar flex ext 5/5 Results & Data ([facility]) Vital Signs (Past 12 Hours) Vital Signs Temp Pulse Resp BP Pulse Ox 03/05/21 11:52 36.3 C L 89 18 108/61 98 03/05/21 07:59 37.0 C 79 17 141/62 H 99 03/05/21 03:32 37 C 80 19 121/74 97 Laboratory Results Abnormal lab results 03/05/21 03/05/21 Range/Units 05:44 05:44 WBC 11.89 H (4.8-10.8) K/uL RBC 2.88 L (4.2-5.4) M/uL Hgb 8.2 L (12.0-16.0) g/dL Hct 25.4 L (37-47) % RDW Std Deviation 48.7 H (36.4-46.3) fL RDW Coeff of Garrett 15.4 H (11.5-14.5) % APTT 51.0 H* (21.0-31.0) Seconds Diagnostic Findings 03/04/2021-CT head-Redemonstration of several acute infarcts better depicted on MRI of March 03, 2021. No acute hemorrhage. No significant mass effect. (1) Acute pulmonary embolism Acute cor pulmonale presence: unspecified Pulmonary embolism type: unspecified Qualified Code(s): I26.99 - Other pulmonary embolism without acute cor pulmonale
--- NOTE | 2021-03-05 16:29 | CT Scan Report ---
CT head/brain wo con CLINICAL HISTORY: 80 years-old Female with increased l arm and leg weak, headache,r/oedema/bl. Acute headache TECHNIQUE: Multiple axial CT images of the head were obtained without contrast. A dose lowering tech nique was utilized adhering to the principles of ALARA. CT DOSE: 1041.13 mGy.cm COMPARISON: Head CT 03/04/2021, brain MRI 03/03/2021. FINDINGS: No acute intracranial hemorrhage, midline shift, intracranial mass, hydrocephalus, or abnormal extra- axial collection. Evolving acute infarcts as described on the comparison brain MRI are most evident w ithin the right frontal lobe near the vertex with progressive cytotoxic edema. Mild age-related invol utional changes. The calvarium is intact. Prior bilateral lens repair. The paranasal sinuses, mastoid air cells, and m iddle ear cavities are clear. IMPRESSION: 1. Evolving acute infarctions of the superior right frontal lobe. The additional tiny acute infarcts described on the brain MRI from 03/03/2021 are not definitively seen. 2. No acute intracranial hemorrhage. ACT 112: Negative or not required by law. The above report was generated using voice recognition software. It may contain grammatical, syntax o r spelling errors. Electronically signed by: Diaz Grande M.D. 03/05/2021 4:28 PM
--- NOTE | 2021-03-05 16:36 | Progress Notes ---
DATE OF SERVICE: 03/05/2021 Addendum to Rupinder Pennington's note today. SUBJECTIVE: I am seeing Mrs. Black for multiple bilateral cerebral infarctions in the setting of can cer and a likely hypercoagulable state. She notes some mild right occipital headache. Otherwise, sh e does not think things are clinically changed. OBJECTIVE: On exam, she is awake and alert. Speech is mildly dysarthric, but not aphasic. There is no visual field cut. There is left central facial weakness. Left arm has no spontaneous movement, a lthough it is lifted up, it does not immediately drift, but does so after about a second. Left lower extremity is only minimal at the iliopsoas. The rest of the muscles tested was 0. There is some in creased tone in the left lower extremity. Reflexes are brisk in the left upper, symmetric in the low ers. Toes are downgoing and light touch is symmetric. IMPRESSION AND PLAN: Multiple cortical infarctions suggestive of a hypercoagulable state or embolic source. The patient is weaker in her left leg today and has a headache. My plan is to repeat a CT o f the head to exclude a major bleed that would contraindicate ongoing use of anticoagulants. If ther e is minimal petechial hemorrhage, okay to continue anticoagulants. I see via Dr. Garcia's note that the plan is warfarin as it is easily reversible. We will follow with you. Job ID: [id number]
[2021-03-05] MEDS: PRAVASTATIN SOD 10 MG TAB PO SCH (20:53)
[2021-03-06] MEDS: LEVOTHYROXINE SODIUM 75 MCG TABLET PO SCH (05:09)
[2021-03-06 05:14] LABS: Hematocrit (blood only) 28.8 % (37-47); Hemoglobin 9.4 g/dL (12.0-16.0); Mean Corpuscular Hgb Conc 32.6 g/dL (32-36); Mean Corpuscular Volume 88.9 fL (80-100); Platelet Count 205 K/uL (130-400); RDW Coefficient of Variation 15.1 % (11.5-14.5); Red Blood Count 3.24 M/uL (4.2-5.4); White Blood Count 13.89 K/uL (4.8-10.8)
[2021-03-06 05:31] LABS: BUN Creatinine Ratio 18.2 (10-20); Calcium 8.4 mg/dl (8.5-10.1); Creatinine Clr Calc Pharmacy 43.3 ml/min; Est GFR (Non-African American) 64.7 ml/min
[2021-03-06 05:41] LABS: INR 1.1 (0.9-1.1); Prothrombin Time 10.9 Seconds (9.0-12.0)
[2021-03-06 06:24] LABS: Partial Thromboplastin Time 51.8 Seconds (21.0-31.0)
--- NOTE | 2021-03-06 10:58 | Palliative Care Progress Note ---
Date of Service March 06, 2021 Assessment & Plan (1) Weakness: Plan: Working with therapy. She would be interested in rehab post discharge. "I want to try and improve from the stroke". (2) Palliative care encounter: Plan: We reviewed wishes for her care prior to 45 minute family meeting on conference call. She tells me that she would want to try and get stronger with therapy. She understands the desire of her family to better understand her overall status, including possible malignancy and is agreeable to liver biopsy with IR. She continues to say that she would not want to pursue cancer treatment but would like to know better what her prognosis is and what to expect. I spoke with her , daughters and son on conference call. We reviewed current status and answered their questions about treatment options, plan of care and her overall condition. They are in favor of biopsy to better understand her prognosis. They would be agreeable to rehab when stable for discharge. (3) CVA (cerebral vascular accident): (4) Liver lesion: Admission and Anticipated Discharge Date Admission Date: March 01, [address] to r/o bleeding with complaint of headache which is negative for acute bleed. She denies pain or dyspnea. Continues to be emotionally labile. Review of Systems Review of Systems: [place] Symptom Assessment Scale Pain 0/3 Dyspnea 0/3 Anxiety 1/3 Drowsiness 0/3 Palliative Performance Score 40% Physical Exam Constitutional: no acute distress Respiratory: normal respiratory effort; no labored breathing Cardiovascular: Rate/Rhythm: regular rate and regular rhythm Neurologic: left sided weakness, not confused Psychiatric: Affect: + labile affect Results & Data ([facility]) Vital Signs (Past 12 Hours) Vital Signs Temp Pulse Resp BP BP Pulse Ox 03/06/21 10:00 79 25 H 03/06/21 09:00 80 23 97 03/06/21 08:00 97.7 F 85 17 131/72 97 03/06/21 07:00 73 22 96 03/06/21 05:40 79 21 97 03/06/21 05:30 80 22 97 03/06/21 05:20 78 21 97 03/06/21 05:17 98.1 F 139/70 03/06/21 05:10 80 21 97 03/06/21 05:00 91 H 19 97 03/06/21 04:50 86 20 97 03/06/21 04:40 92 H 27 H 97 03/06/21 04:30 91 H 27 H 98 03/06/21 04:20 69 21 94 03/06/21 04:10 71 18 98 03/06/21 04:00 70 20 97 03/06/21 03:50 72 21 94 03/06/21 03:40 70 22 96 03/06/21 03:30 74 21 94 03/06/21 03:20 70 21 95 03/06/21 03:10 88 19 97 03/06/21 03:00 79 21 97 03/06/21 02:50 79 20 97 03/06/21 02:40 83 18 97 03/06/21 02:30 87 18 97 03/06/21 02:20 84 18 98 03/06/21 02:10 92 H 27 H 98 03/06/21 02:00 72 21 97 03/06/21 01:50 73 18 95 03/06/21 01:40 73 16 96 03/06/21 01:30 69 18 97 03/06/21 01:20 71 16 97 03/06/21 01:10 69 24 93 03/06/21 01:00 71 32 H 96 03/06/21 00:50 73 10 L 95 03/06/21 00:40 86 20 97 03/06/21 00:30 86 16 97 03/06/21 00:20 86 25 H 97 03/06/21 00:10 85 20 97 03/06/21 00:00 86 20 97 03/05/21 23:50 89 23 97 03/05/21 23:40 88 18 97 03/05/21 23:33 98.1 F 03/05/21 23:30 90 24 97 03/05/21 23:20 84 16 98 03/05/21 23:10 76 24 97 03/05/21 23:00 72 21 96 03/05/21 22:50 72 22 97 PG Care Time/CCT Total # of Minutes Spent Total Time Spent: 65 Total Time Spent with Patient: Total time spent is greater than 50% in coordination of care (as documented) at patient's floor/unit and/or counseling patient: goals of care, patient and family education and support Coding Level of Care Code 05533 Subseq Hosp Care Lvl 3 Diagnoses Weakness R53.1 Palliative care encounter Z51.5 CVA (cerebral vascular accident) I63.9 Liver lesion K76.9
--- NOTE | 2021-03-06 11:59 | Hospitalist Progress Note ---
Date of Service March 06, 2021 Assessment & Plan (1) CVA (cerebral vascular accident): (2) GI bleed: (3) Acute pulmonary embolism: Plan: 80-year-old female with history of hyperlipidemia, hypothyroidism, CKD stage III, who presented 03/01 for near syncopal event. She got in shower and got very warm/hot, then lightheaded, then fell to the ground/lowered herself down without injuring herself. She is being managed for the following: #. 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 Patient never had colonoscopy due to resilience to prep. Likely chronic GI bleed. Admitting FOBT positive in ED. Presenting hemoglobin 7.0. Status post 2 unit PRBC. GI consulted and offered colonoscopy but patient refused. Patient was planned to undergo EGD EUS on 03/03 and heparin was held for the same but she was stroke alert on 03/03 AM and the EGD was canceled. Further GI procedures postponed until patient is stable. Upon discussion with GI, they won't prefer Scope until about 2 months from stroke. Patient currently on heparin drip for stroke, hemoglobin stable around 8-9 Patient tolerating diet. Continue to monitor hemoglobin daily and as needed. Transfuse for hemoglobin less than 7. #. Stroke patient was stroke alert 03/03 morning (When being woken up by the nurse @0615 HRS, patient had difficulty speaking/expressing herself), and has some neurological deficits, left face and LUE weakness was noted. Was able to move left arm on the day. 03/03 CT head, CTA head and neck negative 03/03 MRI Head: Numerous small acute infarcts of the cerebral and cerebellar hemispheres within a multiple vascular distribution are likely embolic with a proximal source. 03/03 echo: EF 65 to 70%, no interatrial shunt noted. f/u 03/04 CT Head: Redemonstration of several acute infarcts better depicted on MRI of March 03, 2021. No acute hemorrhage. No significant mass effect. f/u 03/05 CT Head: Evolving acute infarctions of the superior right frontal lobe. The additional tiny acute infarcts described on the brain MRI from 03/03/2021 are not definitively seen. No acute intracranial Hge. At bedside, patient can articulate clearly, not able to move her left upper extremity, power on left lower extremity 1-2/5. 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 Due to absence of PFO in echo, could be hypercoagulable state. Neurology on board: Agrees with heparin, recommend switch to either Lovenox or DOAC after [address] head as needed if mentation changes or headache. Phone conversation with Dr. Almodovar 03/05 -recommends transition to warfarin given her circumstances and the need for easy reversibility. Patient given a dose of warfarin 03/05, later during the day D/W with GI for consulting radiology for IR biopsy 03/05. We will hold on warfarin for now. Pl an to transition to warfarin after liver biopsy. Patient will need follow-up with Coumadin clinic and INR done in 2 to 3 days of discharge. 03/06 followed up with radiology for schedule on liver biopsy. Patient is scheduled for liver biopsy on Tuesday, stop heparin drip around 4 AM on Tuesday and keep her n.p.o. from midnight. Continue with heparin for now. Follow-up with PT/INR. C/w PT/OT, needs palcement #. Acute PE #. DVT Admitting CTA chest was positive for right-sided pulmonary emboli Admitting US Doppler was positive for bilateral DVT Admitting Echo obtained - EF 65 to 70%. RV is normal size. RV systolic function is normal. Admitting hemoglobin 7.0, status post 2 unit, heparin drip started without bolus. Continue heparin. for anticoagulation - see above. #. Abnormal CT scan 03/01 CTAP: Multiple lesions in liver, concerning for possible metastatic/malignant process Patient and daughter aware GI consulted: Recommends possible IR biopsy of the liver when stable. Radiology consulted for IR biopsy -see above. #. Elevated troponin: -likely secondary to above -Patient has no chest pain and no history of chest pain -Echocardiogram as above #. Elevated INR: - secondary to underlying process (as above) -Continue to closely monitor INR #. Hypothyroidism Continue levothyroxine #. CKD stage III Monitor kidney function while inpatient #. Hyperlipidemia -Hold statin for now Code: DNR/DNI Disposition: PT/OT recs, CM to assist with DC planning. PT recommending Rehab. Palliative care on boardpatient agreeable with liver biopsy in 1/units possible to better understand her prognosis. Patient is agreeable to rehab when stable for discharge. Admission and Anticipated Discharge Date Admission Date: March 01, 2021 Subjective Patient was sitting up in chair, eating her breakfast, on room air, NAD. Per RN, no acute events overnight. Patient is eating okay. Patient reports her weakness as same/not progressing. Denies fever/chills/headache/chest pain/other review of symptoms. Patient wants to do biopsy as soon as possible. Radiology consult placed for biopsy placed yesterday after discussion with GI. Talked with patient's nurse regarding schedule for liver biopsy and was unaware. Talked with radiology today, needs heparin drip stopped for 6 hours. 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 Physical Exam Physical Exam: GENERAL: Alert and oriented x3. NAD, on RA. HEENT: No pallor, no icterus. Pupils equal, round and reactive to light. Oral mucosa moist. Face: Flattening of left nasolabial fold, frowning and eye closing preserved. Tongue deviation to the left. NECK: No JVD, no neck masses. HEART: S1 and S2 heard. Regular rate and rhythm. No murmur, no gallop. RESPIRATORY SYSTEM: Normal AP diameter. No accessory muscle use. No wheezing, no crackles. ABDOMEN: Soft, bowel sounds present, nontender, no distention. CENTRAL NERVOUS SYSTEM: Left facial droop. Speech is clear. Obeys simple commands. LUE 0/5, LLE 1-2/5. RLE weakness on plantar dorsiflexion. EXTREMITIES: No edema, no erythema seen. Results & Data Results & Data ([facility]) Vital Signs (Past 12 Hours) Vital Signs Temp Pulse Resp BP BP Pulse Ox 03/06/21 10:00 79 25 H 03/06/21 09:00 80 23 97 03/06/21 08:00 36.5 C 85 17 131/72 97 03/06/21 07:00 73 22 96 03/06/21 05:40 79 21 97 03/06/21 05:30 80 22 97 03/06/21 05:20 78 21 97 03/06/21 05:17 36.7 C 139/70 03/06/21 05:10 80 21 97 03/06/21 05:00 91 H 19 97 03/06/21 04:50 86 20 97 03/06/21 04:40 92 H 27 H 97 03/06/21 04:30 91 H 27 H 98 03/06/21 04:20 69 21 94 03/06/21 04:10 71 18 98 03/06/21 04:00 70 20 97 03/06/21 03:50 72 21 94 03/06/21 03:40 70 22 96 03/06/21 03:30 74 21 94 03/06/21 03:20 70 21 95 03/06/21 03:10 88 19 97 03/06/21 03:00 79 21 97 03/06/21 02:50 79 20 97 03/06/21 02:40 83 18 97 03/06/21 02:30 87 18 97 03/06/21 02:20 84 18 98 03/06/21 02:10 92 H 27 H 98 03/06/21 02:00 72 21 97 03/06/21 01:50 73 18 95 03/06/21 01:40 73 16 96 03/06/21 01:30 69 18 97 03/06/21 01:20 71 16 97 03/06/21 01:10 69 24 93 03/06/21 01:00 71 32 H 96 03/06/21 00:50 73 10 L 95 03/06/21 00:40 86 20 97 03/06/21 00:30 86 16 97 03/06/21 00:20 86 25 H 97 03/06/21 00:10 85 20 97 03/06/21 00:00 86 20 97 (1) Acute pulmonary embolism Acute cor pulmonale presence: unspecified Pulmonary embolism type: unspecified Qualified Code(s): I26.99 - Other pulmonary embolism without acute cor pulmonale (2) GI bleed GI bleed type/associated pathology: unspecified gastrointestinal hemorrhage type Qualified Code(s): K92.2 - Gastrointestinal hemorrhage, unspecified
--- NOTE | 2021-03-06 15:45 | Communication Note ---
Date of Service: March 06, 2021 no evidence of hemorrhagic conversion on CT head. Ok to move forward with coumadin transition from Heparin gtt. I have reviewed the above note and the chart and imaging and agree with move to coumadin in this unfortunate woman with ca associated hypercoagulability and multiple embolic cvas We will sign off for now but can return as needed to reassess if any new neurological issues arise in her care while an inpatient Anson Reyes MD
[2021-03-06] MEDS: cefTRIAXone SODIUM 1,000 MG in DEXTROSE 5% 50 ML IV SCH (15:59)
--- NOTE | 2021-03-06 17:23 | XRay Report ---
XR chest 1V portable HISTORY: 80 years-old Female r/o infection. Acute shortness of breath COMPARISON: Chest radiograph 03/01/2021 TECHNIQUE: Portable AP view of the chest FINDINGS: Cardiac silhouette is upper limits of normal in size. The patient is slightly rotated. No pneumothora x, pleural effusion or overt edema. Mild right lung base opacities. No acute fracture. IMPRESSION: Mild opacities of the lateral right lung base are likely secondary to summation density. Airspace disease considered less likely. ACT 112: Negative or not required by law. The above report was generated using voice recognition software. It may contain grammatical, syntax o r spelling errors. Electronically signed by: Diaz Grande M.D. 03/06/2021 5:22 PM
[2021-03-06 19:17] LABS: Appearance Urine Cloudy (Clear); Bacteria Urine Automated Negative (Negative); Bilirubin Urine Negative (Negative); Blood Urine Negative (Negative); Color Urine Dark Yellow; Epithelial Cell Urine Auto >30 /lpf (0-5); Glucose Urine UA Negative (Negative); Ketones Urine Negative (Negative); Leukocyte Esterase Urine 2+ (Negative); Nitrite Urine Negative (Negative); Protein Urine Trace (Negative); RBC Urine Automated 0-4 /hpf (0-4); Specific Gravity Urine 1.018 (1.000-1.030); Urobilinogen Urine Positive (Negative); WBC Urine Automated >30 /hpf (0-5); pH Urine 5.5 (4.5-7.5)
[2021-03-06] MEDS: HEPARIN SODIUM/DEXTROSE 25,000 UNITS/500 ML BAG IV SCH (21:17)
[2021-03-06] MEDS: PRAVASTATIN SOD 10 MG TAB PO SCH (21:17)
[2021-03-07] MEDS: LEVOTHYROXINE SODIUM 75 MCG TABLET PO SCH (05:07)
[2021-03-07 05:51] LABS: Hematocrit (blood only) 25.1 % (37-47); Hemoglobin 7.9 g/dL (12.0-16.0); Mean Corpuscular Hemoglobin 27.9 pg (25-34); Mean Corpuscular Hgb Conc 31.5 g/dL (32-36); Mean Corpuscular Volume 88.7 fL (80-100); Mean Platelet Volume 10.2 fL (7.4-10.4); Platelet Count 200 K/uL (130-400); Red Blood Count 2.83 M/uL (4.2-5.4); White Blood Count 10.39 K/uL (4.8-10.8)
[2021-03-07 06:05] LABS: INR 1.1 (0.9-1.1); Prothrombin Time 11.3 Seconds (9.0-12.0)
[2021-03-07 07:38] LABS: Partial Thromboplastin Ratio 1.7; Partial Thromboplastin Time 43.4 Seconds (21.0-31.0)
--- NOTE | 2021-03-07 13:32 | Hospitalist Progress Note ---
Date of Service March 07, 2021 Assessment & Plan (1) CVA (cerebral vascular accident): (2) GI bleed: (3) Acute pulmonary embolism: (4) Leukocytosis: Plan: 80-year-old female with history of hyperlipidemia, hypothyroidism, CKD stage III, who presented 03/01 for near syncopal event. She got in shower and got very warm/hot, then lightheaded, then fell to the ground/lowered herself down without injuring herself. She is being managed for the following: #. GI bleed Patient denies any history of GI bleed, however reports some blood in the shower about a month ago [employer], did not seek medical attention for it. Patient never had colonoscopy due to resilience to prep. Likely chronic GI bleed. Admitting FOBT positive in ED. Presenting hemoglobin 7.0. Status post 2 unit PRBC. GI consulted and offered colonoscopy but patient refused. Patient was planned to undergo EGD EUS on 03/03 and heparin was held for the same but she was stroke alert on 03/03 AM and the EGD was canceled. Further GI procedures postponed until patient is stable. Upon discussion with GI, they won't prefer Scope until about 2 months from stroke. Patient currently on heparin drip for stroke, hemoglobin stable around 8-9 Patient tolerating diet. Continue to monitor hemoglobin daily and as needed. Transfuse for hemoglobin less than 7. #. Stroke patient was stroke alert 03/03 morning (When being woken up by the nurse @0615 HRS, patient had difficulty speaking/expressing herself), and has some neurological deficits, left face and LUE weakness was noted. Was able to move left arm on the day. 03/03 CT head, CTA head and neck negative 03/03 MRI Head: Numerous small acute infarcts of the cerebral and cerebellar hemispheres within a multiple vascular distribution are likely embolic with a proximal source. 03/03 echo: EF 65 to 70%, no interatrial shunt noted. f/u 03/04 CT Head: Redemonstration of several acute infarcts better depicted on MRI of March 03, 2021. No acute hemorrhage. No significant mass effect. f/u 03/05 CT Head: Evolving acute infarctions of the superior right frontal lobe. The additional tiny acute infarcts described on the brain MRI from 03/03/2021 are not definitively seen. No acute intracranial Hge. At bedside, patient can articulate clearly, not able to move her left upper extremity, power on left lower extremity 1-2/5. 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 Due to absence of PFO in echo, could be hypercoagulable state. Neurology on board: Agrees with heparin now and switch to warfarin. Recommends CT head as needed if mentation changes or headache. Phone conversation with Dr. Almodovar 03/05 -recommends transition to warfarin given her circumstances and the need for easy reversibility. Patient given a dose of warfarin 03/05, later during the day D/W with GI for consulting radiology for IR biopsy 03/05. We will hold on warfarin for now. Pl an to transition to warfarin after liver biopsy. Patient will need follow-up with Coumadin clinic and INR done in 2 to 3 days of discharge. 03/06 followed up with radiology for schedule on liver biopsy. Patient is scheduled for liver biopsy on Tuesday, stop heparin drip around 4 AM on Tuesday and keep her n.p.o. from midnight. Continue with heparin for now. Follow-up with PT/INR. C/w PT/OT, needs palcement #. Acute PE #. DVT Admitting CTA chest was positive for right-sided pulmonary emboli Admitting US Doppler was positive for bilateral DVT Admitting Echo obtained - EF 65 to 70%. RV is normal size. RV systolic function is normal. Admitting hemoglobin 7.0, status post 2 unit, heparin drip started without bolus. Continue heparin. for anticoagulation - see above. #. Abnormal CT scan 03/01 CTAP: Multiple lesions in liver, concerning for possible metastatic/malignant process Patient and daughter aware GI consulted: Recommends possible IR biopsy of the liver when stable. Radiology consulted for IR biopsy -see above. #. Leukocytosis -source unknown WBC up trended 03/03-03/06, pro-Rahul elevated at 0.62 on 03/06 Highest temperature on 03/03 -37.8C On examination, skin negative for infection/cellulitis and lung sounds clear/exam negative for meningitis signs. 03/06 CXR less concerning for airspace disease. 03/06 UA looks dirty and is suggestive of UTI but patient does not have any signs and symptoms and urine culture is negative. Patient started on Rocephin 03/06, will continue for 3 days and trend pro-Rahul. #. Elevated troponin: -likely secondary to above -Patient has no chest pain and no history of chest pain -Echocardiogram as above #. Elevated INR: - secondary to underlying process (as above) -Continue to closely monitor INR #. Hypothyroidism Continue levothyroxine #. CKD stage III Monitor kidney function while inpatient #. Hyperlipidemia -c/w statin Code: DNR/DNI Disposition: PT/OT recs, CM to assist with DC planning. PT recommending Rehab. Palliative care on boardpatient agreeable with liver biopsy as soon as possible to better understand her prognosis. Patient is agreeable to rehab when stable for discharge. CM working on [employer]. Admission and Anticipated Discharge Date Admission Date: March 01, 2021 Subjective Patient was sitting up in chair, eating her lunch, on room air, NAD. No acute events overnight. Patient reports that she is eating malaise but is moving bowels okay. Patient feels same as yesterday with regard to her left-sided weakness. Denies fever/chills/headache/chest pain/other review of symptoms. Physical Exam Physical Exam: GENERAL: Alert and oriented x3. NAD, on RA. Patient appears sad. HEENT: No pallor, no icterus. Pupils equal, round and reactive to light. Oral mucosa moist. Face: Flattening of left nasolabial fold, frowning and eye closing preserved. Tongue deviation to the left. NECK: No JVD, no neck masses. HEART: S1 and S2 heard. Regular rate and rhythm. No murmur, no gallop. RESPIRATORY SYSTEM: Normal AP diameter. No accessory muscle use. No wheezing, no crackles. ABDOMEN: Soft, bowel sounds present, nontender, no distention. CENTRAL NERVOUS SYSTEM: Left facial droop. Speech is clear. Obeys simple commands. LUE 0/5, LLE 1-2/5. RLE weakness on dorsiflexion. EXTREMITIES: No edema, no erythema seen. Results & Data Results & Data ([facility]) Vital Signs (Past 12 Hours) Vital Signs Temp Pulse Resp BP BP Pulse Ox 03/07/21 11:38 36.4 C L 75 16 95/47 L 99 03/07/21 10:35 36.4 C L 78 20 103/52 L 98 03/07/21 04:59 36.4 C L 80 20 131/72 97 03/07/21 02:01 75 24 108/52 L 96 (1) GI bleed GI bleed type/associated pathology: unspecified gastrointestinal hemorrhage type Qualified Code(s): K92.2 - Gastrointestinal hemorrhage, unspecified (2) Acute pulmonary embolism Acute cor pulmonale presence: unspecified Pulmonary embolism type: unspecified Qualified Code(s): I26.99 - Other pulmonary embolism without acute cor pulmonale
[2021-03-07] MEDS: cefTRIAXone SODIUM 1,000 MG in DEXTROSE 5% 50 ML IV SCH (15:29)
[2021-03-07] MEDS: PRAVASTATIN SOD 10 MG TAB PO SCH (21:31)
[2021-03-07 21:35] LABS: Partial Thromboplastin Ratio 1.8
[2021-03-07] MEDS ORDERED: oxyCODONE HCL IR 5 MG TAB (IMMEDIATE RELEASE) PO PRN (22:41)
[2021-03-08 00:25] LABS: BUN Creatinine Ratio 27.2 (10-20); Calcium 8.3 mg/dl (8.5-10.1); Creatinine Clr Calc Pharmacy 44.8 ml/min; Est GFR (African American) 79.4 ml/min; Est GFR (Non-African American) 68.5 ml/min; Potassium 3.5 mmol/L (3.5-5.1)
[2021-03-08] MEDS: HEPARIN SODIUM/DEXTROSE 25,000 UNITS/500 ML BAG IV SCH (00:26)
[2021-03-08 05:54] LABS: Hematocrit (blood only) 24.3 % (37-47); Hemoglobin 7.8 g/dL (12.0-16.0); Mean Corpuscular Hemoglobin 28.6 pg (25-34); Mean Corpuscular Hgb Conc 32.1 g/dL (32-36); Mean Platelet Volume 10.1 fL (7.4-10.4); Platelet Count 238 K/uL (130-400); RDW Coefficient of Variation 15.1 % (11.5-14.5); RDW Standard Deviation 49.1 fL (36.4-46.3); Red Blood Count 2.73 M/uL (4.2-5.4); White Blood Count 10.95 K/uL (4.8-10.8)
[2021-03-08] MEDS: LEVOTHYROXINE SODIUM 75 MCG TABLET PO SCH (05:55)
[2021-03-08 06:05] LABS: INR 1.1 (0.9-1.1); Prothrombin Time 11.1 Seconds (9.0-12.0)
[2021-03-08 06:16] LABS: Calcium 8.4 mg/dl (8.5-10.1); Creatinine Clr Calc Pharmacy 42.8 ml/min; Est GFR (Non-African American) 64.7 ml/min; Magnesium 2.3 mg/dl (1.8-2.4); Potassium 3.7 mmol/L (3.5-5.1)
[2021-03-08 06:21] LABS: Partial Thromboplastin Time 52.2 Seconds (21.0-31.0)
[2021-03-08] MEDS: ACETAMINOPHEN 325 MG TAB PO PRN ×2 (10:13→19:26)
[2021-03-08] MEDS ORDERED: PIPERACILL/TAZOBAC CONSULT ACTIVE PRN (13:57)
[2021-03-08] MEDS ORDERED: PIPERACILLIN/TAZOBACTAM 3.375 GM in DEXTROSE 5% 100 ML IV SCH (14:00)
--- NOTE | 2021-03-08 14:02 | Hospitalist Progress Note ---
Date of Service March 08, 2021 Assessment & Plan (1) CVA (cerebral vascular accident): (2) GI bleed: (3) Acute pulmonary embolism: (4) Leukocytosis: Plan: 80-year-old female with history of hyperlipidemia, hypothyroidism, CKD stage III, who presented 03/01 for near syncopal event. She got in shower and got very warm/hot, then lightheaded, then fell to the ground/lowered herself down without injuring herself. She is being managed for the following: #. GI bleed Patient denies any history of GI bleed, however reports some blood in the shower about a month ago [employer], did not seek medical attention for it. Patient never had colonoscopy due to resilience to prep. Likely chronic GI bleed. Admitting FOBT positive in ED. Presenting hemoglobin 7.0. Status post 2 unit PRBC. GI consulted and offered colonoscopy but patient refused. Patient was planned to undergo EGD EUS on 03/03 and heparin was held for the same but she was stroke alert on 03/03 AM and the EGD was canceled. Further GI procedures postponed until patient is stable. Upon discussion with GI, they won't prefer Scope until about 2 months from stroke. Patient currently on heparin drip for stroke, hemoglobin stable around 8-9 Patient tolerating diet. Continue to monitor hemoglobin daily and as needed. Transfuse for hemoglobin less than 7. #. Stroke patient was stroke alert 03/03 morning (When being woken up by the nurse @0615 HRS, patient had difficulty speaking/expressing herself), and has some neurological deficits, left face and LUE weakness was noted. Was able to move left arm on the day. 03/03 CT head, CTA head and neck negative 03/03 MRI Head: Numerous small acute infarcts of the cerebral and cerebellar hemispheres within a multiple vascular distribution are likely embolic with a proximal source. 03/03 echo: EF 65 to 70%, no interatrial shunt noted. f/u 03/04 CT Head: Redemonstration of several acute infarcts better depicted on MRI of March 03, 2021. No acute hemorrhage. No significant mass effect. f/u 03/05 CT Head: Evolving acute infarctions of the superior right frontal lobe. The additional tiny acute infarcts described on the brain MRI from 03/03/2021 are not definitively seen. No acute intracranial Hge. At bedside, patient can articulate clearly, not able to move her left upper extremity, power on left lower extremity 1-2/5. 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 Due to absence of PFO in echo, could be hypercoagulable state. Neurology on board: Agrees with heparin now and switch to warfarin. Recommends CT head as needed if mentation changes or headache. Phone conversation with Dr. Almodovar 03/05 -recommends transition to warfarin given her circumstances and the need for easy reversibility. Patient given a dose of warfarin 03/05, later during the day D/W with GI for consulting radiology for IR biopsy 03/05. We will hold on warfarin for now. Pl an to transition to warfarin after liver biopsy. Patient will need follow-up with Coumadin clinic and INR done in 2 to 3 days of discharge. 03/06 followed up with radiology for schedule on liver biopsy. Patient is scheduled for liver biopsy on Tuesday, stop heparin drip around 4 AM on Tuesday and keep her n.p.o. from midnight. Continue with heparin for now. Follow-up with PT/INR. C/w PT/OT, needs palcement #. Acute PE #. DVT Admitting CTA chest was positive for right-sided pulmonary emboli Admitting US Doppler was positive for bilateral DVT Admitting Echo obtained - EF 65 to 70%. RV is normal size. RV systolic function is normal. Admitting hemoglobin 7.0, status post 2 unit, heparin drip started without bolus. Continue heparin. for anticoagulation - see above. #. Abnormal CT scan 03/01 CTAP: Multiple lesions in liver, concerning for possible metastatic/malignant process Patient and daughter aware GI consulted: Recommends possible IR biopsy of the liver when stable. Radiology consulted for IR biopsy -see above. #. Leukocytosis -source unknown WBC up trended 03/03-03/06, pro-Rahul elevated at 0.62 on 03/06 Highest temperature on 03/03 -37.8C On examination, skin negative for infection/cellulitis and lung sounds clear/exam negative for meningitis signs. 03/06 CXR less concerning for airspace disease. 03/06 UA looks dirty and is suggestive of UTI but patient does not have any signs and symptoms and urine culture is negative. Patient started on Rocephin 03/06, pro-Rahul uptrending, send blood culture, changed to Zosyn 03/08. #. Elevated troponin: -likely secondary to above -Patient has no chest pain and no history of chest pain -Echocardiogram as above #. Elevated INR: - secondary to underlying process (as above) -Continue to closely monitor INR #. Hypothyroidism Continue levothyroxine #. CKD stage III Monitor kidney function while inpatient #. Hyperlipidemia -c/w statin Code: DNR/DNI Disposition: PT/OT recs, CM to assist with DC planning. PT recommending Rehab. Palliative care on boardpatient agreeable with liver biopsy as soon as possible to better understand her prognosis. Patient is agreeable to rehab when stable for discharge. CM working on [employer]. Admission and Anticipated Discharge Date Admission Date: March 01, 2021 Subjective Patient was lying in bed, on room air, NAD. No acute events overnight. Patient reports that she is eating less but is moving bowels okay. Patient feels same as yesterday with regard to her left-sided weakness. Denies fever/chills/headache/chest pain/other review of symptoms. Physical Exam Physical Exam: GENERAL: Alert and oriented x3. NAD, on RA. Patient appears sad. HEENT: No pallor, no icterus. Pupils equal, round and reactive to light. Oral mucosa moist. Face: Flattening of left nasolabial fold, frowning and eye closing preserved. Tongue deviation to the left. NECK: No JVD, no neck masses. HEART: S1 and S2 heard. Regular rate and rhythm. No murmur, no gallop. RESPIRATORY SYSTEM: Normal AP diameter. No accessory muscle use. No wheezing, no crackles. ABDOMEN: Soft, bowel sounds present, nontender, no distention. CENTRAL NERVOUS SYSTEM: Left facial droop. Speech is clear. Obeys simple commands. LUE 0/5, LLE 0/5. RLE weakness on dorsiflexion. Reflexes preserved. EXTREMITIES: No edema, no erythema seen. (1) GI bleed GI bleed type/associated pathology: unspecified gastrointestinal hemorrhage type Qualified Code(s): K92.2 - Gastrointestinal hemorrhage, unspecified (2) Acute pulmonary embolism Acute cor pulmonale presence: unspecified Pulmonary embolism type: unspecified Qualified Code(s): I26.99 - Other pulmonary embolism without acute cor pulmonale
[2021-03-08] MEDS ORDERED: PIPERACILLIN/TAZOBACTAM 4.5 GM in DEXTROSE 5% 100 ML IV ONE (14:30)
[2021-03-08 16:16] LABS: Hematocrit (blood only) 28.8 % (37-47); Hemoglobin 9.2 g/dL (12.0-16.0)
[2021-03-08] MEDS: PIPERACILLIN/TAZOBACTAM 4.5 GM in DEXTROSE 5% 100 ML IV SCH (19:26)
[2021-03-08] MEDS: PRAVASTATIN SOD 10 MG TAB PO SCH (19:26)
[2021-03-09] MEDS: PIPERACILLIN/TAZOBACTAM 4.5 GM in DEXTROSE 5% 100 ML IV SCH ×3 (03:54→20:03)
[2021-03-09 04:56] LABS: Hematocrit (blood only) 25.5 % (37-47); Hemoglobin 8.2 g/dL (12.0-16.0); Mean Corpuscular Hemoglobin 28.7 pg (25-34); Mean Corpuscular Hgb Conc 32.2 g/dL (32-36); Mean Corpuscular Volume 89.2 fL (80-100); Mean Platelet Volume 10.1 fL (7.4-10.4); Platelet Count 264 K/uL (130-400); RDW Coefficient of Variation 14.8 % (11.5-14.5); RDW Standard Deviation 48.5 fL (36.4-46.3); Red Blood Count 2.86 M/uL (4.2-5.4); White Blood Count 13.44 K/uL (4.8-10.8)
[2021-03-09] MEDS: LEVOTHYROXINE SODIUM 75 MCG TABLET PO SCH (05:46)
--- NOTE | 2021-03-09 14:20 | Hospitalist Progress Note ---
Date of Service March 09, 2021 Assessment & Plan (1) CVA (cerebral vascular accident): (2) GI bleed: (3) Acute pulmonary embolism: (4) Leukocytosis: Plan: 80-year-old female with history of hyperlipidemia, hypothyroidism, CKD stage III, who presented 03/01 for near syncopal event. She got in shower and got very warm/hot, then lightheaded, then fell to the ground/lowered herself down without injuring herself. She is being managed for the following: #. GI bleed Patient denies any history of GI bleed, however reports some blood in the shower about a month ago [employer], did not seek medical attention for it. Patient never had colonoscopy due to resilience to prep. Likely chronic GI bleed. Admitting FOBT positive in ED. Presenting hemoglobin 7.0. Status post 2 unit PRBC. GI consulted and offered colonoscopy but patient refused. Patient was planned to undergo EGD EUS on 03/03 and heparin was held for the same but she was stroke alert on 03/03 AM and the EGD was canceled. Further GI procedures postponed until patient is stable. Upon discussion with GI, they won't prefer Scope until about 2 months from stroke. Patient currently on heparin drip for stroke, hemoglobin stable around 8-9 Patient tolerating diet. Continue to monitor hemoglobin daily and as needed. Transfuse for hemoglobin less than 7. #. Stroke patient was stroke alert 03/03 morning (When being woken up by the nurse @0615 HRS, patient had difficulty speaking/expressing herself), and has some neurological deficits, left face and LUE weakness was noted. Was able to move left arm on the day. 03/03 CT head, CTA head and neck negative 03/03 MRI Head: Numerous small acute infarcts of the cerebral and cerebellar hemispheres within a multiple vascular distribution are likely embolic with a proximal source. 03/03 echo: EF 65 to 70%, no interatrial shunt noted. f/u 03/04 CT Head: Redemonstration of several acute infarcts better depicted on MRI of March 03, 2021. No acute hemorrhage. No significant mass effect. f/u 03/05 CT Head: Evolving acute infarctions of the superior right frontal lobe. The additional tiny acute infarcts described on the brain MRI from 03/03/2021 are not definitively seen. No acute intracranial Hge. At bedside, patient can articulate clearly, not able to move her left upper extremity, power on left lower extremity 0/5. 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 Due to absence of PFO in echo, could be hypercoagulable state. Neurology on board: Agrees with heparin now and switch to warfarin. Recommends CT head as needed if mentation changes or headache. Phone conversation with Dr. Almodovar 03/05 -recommends transition to warfarin given her circumstances and the need for easy reversibility. Patient given a dose of warfarin 03/05, later during the day D/W with GI for consulting radiology for IR biopsy 03/05. We will hold on warfarin for now. Pl an to transition to warfarin after liver biopsy. Patient will need follow-up with Coumadin clinic and INR done in 2 to 3 days of discharge. For liver biopsy today, will continue to hold heparin today and will get in touch with Dr. Almodovar again to figure out when we can safely resume heparin and then transition to warfarin to avoid the complication of subcapsular hemorrhage. From literature search, it appears to be around 48 to 72 hours. C/w PT/OT, needs palcement #. Acute PE #. DVT Admitting CTA chest was positive for right-sided pulmonary emboli Admitting US Doppler was positive for bilateral DVT Admitting Echo obtained - EF 65 to 70%. RV is normal size. RV systolic function is normal. Admitting hemoglobin 7.0, status post 2 unit, heparin drip started without bolus. Continue heparin when able. for anticoagulation - see above. #. Abnormal CT scan 03/01 CTAP: Multiple lesions in liver, concerning for possible metastatic/malignant process Patient and daughter aware GI consulted: Recommends possible IR biopsy of the liver when stable. Radiology consulted for IR biopsy -for biopsy today. #. Leukocytosis -source unknown WBC up trended 03/03-03/06, pro-Rahul elevated at 0.62 on 03/06 Highest temperature on 03/03 -37.8C On examination, skin negative for infection/cellulitis and lung sounds clear/exam negative for meningitis signs. 03/06 CXR less concerning for airspace disease. 03/06 UA looks dirty and is suggestive of UTI but patient does not have any signs and symptoms and urine culture is negative. Patient started on Rocephin 03/06, pro-Rahul uptrending, send blood culture, changed to Zosyn 03/08. Pro-Rahul and WBC still uptrending on 03/09 hence consulted ID. #. Elevated troponin: -likely secondary to above -Patient has no chest pain and no history of chest pain -Echocardiogram as above #. Elevated INR: - secondary to underlying process (as above) -Continue to closely monitor INR #. Hypothyroidism Continue levothyroxine #. CKD stage III Monitor kidney function while inpatient #. Hyperlipidemia -c/w statin Code: DNR/DNI Disposition: PT/OT recs, CM to assist with DC planning. PT recommending Rehab. Palliative care on boardpatient agreeable with liver biopsy as soon as possible to better understand her prognosis. Patient is agreeable to rehab when stable for discharge. CM working on [facility] [employer] [facility]. Admission and Anticipated Discharge Date Admission Date: March 01, 2021 Subjective Patient was lying in bed, on room air, NAD. No acute events overnight. Patient is n.p.o. for liver biopsy today and has moved her bowels last yesterday. Patient feels same as yesterday with regard to her left-sided weakness. Denies fever/chills/headache/chest pain/other review of symptoms. Physical Exam Physical Exam: GENERAL: Alert and oriented x3. NAD, on RA. Sad appearing. HEENT: No pallor, no icterus. Pupils equal, round and reactive to light. Oral mucosa moist. Face: Flattening of left nasolabial fold, frowning and eye closing preserved. T ongue deviation to the left. NECK: No JVD, no neck masses. HEART: S1 and S2 heard. Regular rate and rhythm. No murmur, no gallop. RESPIRATORY SYSTEM: Normal AP diameter. No accessory muscle use. No wheezing, no crackles. ABDOMEN: Soft, bowel sounds present, nontender, no distention. CENTRAL NERVOUS SYSTEM: Left facial droop. Speech is clear. Obeys simple commands. LUE 0/5, LLE 0/5. RLE weakness on dorsiflexion. Reflexes preserved. EXTREMITIES: No edema, no erythema seen. Results & Data Results & Data ([facility]) Vital Signs (Past 12 Hours) Vital Signs Temp Pulse Pulse Resp BP Pulse Ox 03/09/21 11:17 68 03/09/21 08:00 36.9 C 87 16 112/67 96 03/09/21 03:57 36.7 C 84 16 112/67 99 (1) Acute pulmonary embolism Acute cor pulmonale presence: unspecified Pulmonary embolism type: unspecified Qualified Code(s): I26.99 - Other pulmonary embolism without acute cor pulmonale (2) GI bleed GI bleed type/associated pathology: unspecified gastrointestinal hemorrhage type Qualified Code(s): K92.2 - Gastrointestinal hemorrhage, unspecified
--- NOTE | 2021-03-09 15:13 | Ultrasound Report ---
ULTRASOUND-GUIDED FINE-NEEDLE ASPIRATION OF A LEFT HEPATIC LOBE MASS HISTORY: multiple masses in liver COMPARISON: Abdomen and pelvis CT 03/01/2021. PROCEDURE: Written informed consent was obtained. The neck was prepped and draped in the usual steril e fashion. 1% lidocaine was used for local anesthesia. A total of 2 passes using a 22-gauge x 3.5 in . spinal needle were made through a left hepatic lobe mass under ultrasound guidance. Specimens were given to the on-site pathologist who determined adequate tissue for diagnosis. The patient tolerated the procedure well. There were no immediate complication. IMPRESSION: Successful ultrasound-guided fine-needle aspiration of a left hepatic lobe mass. ACT 112: Negative or not required by law. Electronically signed by: Chapin Sparrow M.D. 03/09/2021 3:11 PM
[2021-03-09] MEDS: ACETAMINOPHEN 325 MG TAB PO PRN (18:24)
[2021-03-09] MEDS: PRAVASTATIN SOD 10 MG TAB PO SCH (20:02)
[2021-03-10] MEDS: PIPERACILLIN/TAZOBACTAM 4.5 GM in DEXTROSE 5% 100 ML IV SCH ×2 (04:45→13:12)
[2021-03-10 04:52] LABS: Hematocrit (blood only) 26.8 % (37-47); Hemoglobin 8.7 g/dL (12.0-16.0); Mean Corpuscular Hemoglobin 28.5 pg (25-34); Mean Corpuscular Hgb Conc 32.5 g/dL (32-36); Mean Corpuscular Volume 87.9 fL (80-100); Mean Platelet Volume 9.9 fL (7.4-10.4); Platelet Count 158 K/uL (130-400); RDW Coefficient of Variation 14.9 % (11.5-14.5); RDW Standard Deviation 47.9 fL (36.4-46.3); Red Blood Count 3.05 M/uL (4.2-5.4); White Blood Count 18.32 K/uL (4.8-10.8)
[2021-03-10 05:22] LABS: BUN Creatinine Ratio 17.5 (10-20); Calcium 8.5 mg/dl (8.5-10.1); Creatinine Clr Calc Pharmacy 34.1 ml/min; Est GFR (African American) 56.9 ml/min; Est GFR (Non-African American) 49.1 ml/min; Magnesium 2.2 mg/dl (1.8-2.4); Phosphorus 2.8 mg/dl (2.5-4.9); Potassium 3.4 mmol/L (3.5-5.1)
[2021-03-10] MEDS: LEVOTHYROXINE SODIUM 75 MCG TABLET PO SCH (06:23)
--- NOTE | 2021-03-10 10:18 | Palliative Care Progress Note ---
Date of Service March 10, 2021 Assessment & Plan (1) Weakness: Plan: Pt continues to be weak. (2) Palliative care encounter: Plan: I had a lengthy conversation with the patients daughter, Caren, on the phone for 24 minutes. We discussed the altered events of her mother's presentation today. Of course, the liver biopsy results have not returned yet. The patient is unable to participate in goals of care conversation today. For now, we will await head CT results and response to IV fluids that were ordered. I set the expectation to evaluate how things are going on a 2-3 day basis to assist with goals of care conversation. From my initial interaction, she was clear she would not want aggressive feeding tubes for life prolongation. Caren agrees and says that the whole family would be on the same page about that. Caren agrees that she would not want to pursue cancer treatment but would like to know better what her prognosis is and what to expect. The family is still iin favor of biopsy to better understand her prognosis, but understand if things are not moving in the direction towards rehab and some strengthening, they would revisit overall goals. If she had a shortened time with us, they would consider hospice, which we talked briefly about today. They would be agreeable to rehab when stable for discharge if she does improve. (3) CVA (cerebral vascular accident): Plan: New altered mental status noted today. Yesterday, she was more forgetful and today has trouble answering simple yes or no questions, along with having a hard time with following commands. Head CT ordered. (4) Liver lesion: Plan: Biopsy performed yesterday. Anticoagulation to restart today when looking at benefit vs risk of further clot formation. Discussed with Dr. Garcia (5) Altered mental status: Plan: Difficulty with AROM and having a hard time speaking and following commands. Word salad with responses. Head CT ordered. Pt not taking any sedating medications. (6) Dehydration: Plan: Labs reviewed with Dr. Garcia. Dark urine output and patient is tachycardic. IV 0.9 NS fluids started at 80mL/hour. poor oral intake. confirmed with family that patient would not want artificial nutrition. Admission and Anticipated Discharge Date Admission Date: March 01, 2021 Subjective Patient is awake, but rather tired and unable to participate as well in conversation. She struggles with conversation and inability to find words. Patient also tachycardic. See A/P for goals conversation and additional update. Review of Systems Review of Systems: [place] Symptom Assessment Scale Pain 0/3 Dyspnea 0/3 Anxiety 1/3 Drowsiness 1/3 Tiredness: 2/3 Palliative Performance Score 30% Physical Exam Constitutional: + ill appearing and + frail appearing ENMT: Mouth: + dry oral mucous membranes Respiratory: normal respiratory effort Cardiovascular: Rate/Rhythm: + tachycardic Heart Sounds: normal S1 and normal S2 Extremities: normal capillary refill; no edema Gastrointestinal (Abdomen): Inspection/Auscultation: abdomen normal to inspection Psychiatric: Insight: good insight and + impaired insight Judgement: good judgement and + impaired judgement Results & Data ([facility]) Vital Signs (Past 12 Hours) Vital Signs Temp Pulse Pulse Resp BP Pulse Ox 03/10/21 05:49 36.6 C 96 H 21 142/75 H 97 03/10/21 00:01 36.6 C 78 22 119/58 L 98 03/09/21 23:31 90 PG Care Time/CCT Total # of Minutes Spent Total Time Spent with Patient: Total time spent is greater than 50% in coordination of care (as documented) at patient's floor/unit and/or counseling patient: 45 minutes with > 50% of that time spent assessing the patient, discussing goals of care with the patient and collaborating with IDT Coding Level of Care Code 88557 Subseq Hosp Care Lvl 3 Diagnoses Weakness R53.1 Palliative care encounter Z51.5 CVA (cerebral vascular accident) I63.9 Liver lesion K76.9 Altered mental status R41.82 Dehydration E86.0 Time Spent (min) 45
[2021-03-10] MEDS ORDERED: CEFEPIME 1,000 MG in SYRINGE 0 ML IV STA (12:22)
[2021-03-10] MEDS ORDERED: VANCOMYCIN CONSULT ACTIVE PRN (12:22)
[2021-03-10] MEDS ORDERED: CEFEPIME CONSULT ACTIVE PRN (12:22)
[2021-03-10] MEDS ORDERED: VANCOMYCIN HCL 1,000 MG/270 ML BAG IV STA (12:22)
[2021-03-10 12:54] LABS: Partial Thromboplastin Ratio 1.5; Partial Thromboplastin Time 40.7 Seconds (21.0-31.0)
[2021-03-10] MEDS ORDERED: VANCOMYCIN HCL 1,250 MG in SODIUM CHLORIDE 0.9% 250 ML IV STA (13:10)
[2021-03-10] MEDS ORDERED: CEFEPIME 2,000 MG in SYRINGE 0 ML IV SCH (13:15)
--- NOTE | 2021-03-10 13:15 | CT Scan Report ---
CT head/brain wo con CLINICAL HISTORY: 80 years-old Female with altered mental status. Acutely altered mental status TECHNIQUE: Multiple axial CT images of the head were obtained without contrast. A dose lowering tech nique was utilized adhering to the principles of ALARA. CT DOSE: 614.27 mGy.cm COMPARISON: Head CT 03/05/2021, brain MRI 03/03/2021 FINDINGS: There is a large area of decreased attenuation with blurring of the kiran-white interface involving th e superior right frontal lobe measuring up to approximately 6.6 cm in AP dimension on image 23 series 2. Additional moderate sized area of decreased attenuation involves the right temporal parietal lobe on image 18 series 2 which is new from prior. The previously described tiny acute infarcts of the le ft cerebral convexity are not definitively seen. Age-related involutional changes. White matter hypod ensities suggestive of chronic microvascular ischemic disease. No acute intracranial hemorrhage, midl ine shift or abnormal extra-axial collection. The calvarium is intact. Prior bilateral lens repair. The paranasal sinuses, mastoid air cells, and m iddle ear cavities are clear. IMPRESSION: 1. No acute intracranial hemorrhage or midline shift. 2. Large area of decreased attenuation with blurring of the kiran-white interface within the superior right frontal lobe with new moderate similar appearing area within the right temporal parietal lobe. These findings have progressed from the brain MRI dated 03/03/[address] from 03/05/2021 sugg estive of acute on subacute infarcts with progressive cytotoxic edema. ACT 112: Negative or not required by law. The above report was generated using voice recognition software. It may contain grammatical, syntax o r spelling errors. Electronically signed by: Diaz Grande M.D. 03/10/2021 1:14 PM
--- NOTE | 2021-03-10 13:20 | Pharmacy Report ---
Pharmacy Abx Dose Short Note - Date of Service March 10, 2021 - Assessment & Plan Assessment * 80 year old F transitioning from empiric Zosyn (last 48 hours) to cefepime/metronidazole/vancomycin empirically due to climbing WBC to 18 and procalcitonin to 1.41. Source unclear at this time * Zosyn changed to cefepime/metronidazole to avoid DDI of Zosyn/vancomycin * SCr with slight bump today - unclear trend. Will obtain random vancomycin level with AM labs after load today Plan * Vancomycin 1250 mg IV x1 * Random level with AM labs Pharmacy will continue to follow and will adjust dose/frequency as necessary. Thank you.
[2021-03-10] MEDS: SODIUM CHLORIDE 0.9% 1000ML 1,000 ML IV SCH (13:23)
[2021-03-10] MEDS: POTASSIUM CHLORIDE / WTR 10 MEQ/100 ML PLCT IV SCH ×2 (13:24→14:40)
[2021-03-10] MEDS: metroNIDAZOLE 500 MG/100 ML BAG IV SCH ×2 (14:41→20:04)
[2021-03-10] MEDS: HEPARIN SODIUM/DEXTROSE 25,000 UNITS/500 ML BAG IV SCH (14:55)
--- NOTE | 2021-03-10 15:28 | Hospitalist Progress Note ---
Date of Service March 10, 2021 Assessment & Plan (1) CVA (cerebral vascular accident): (2) GI bleed: (3) Acute pulmonary embolism: (4) Leukocytosis: Plan: 80-year-old female with history of hyperlipidemia, hypothyroidism, CKD stage III, who presented 03/01 for near syncopal event. She got in shower and got very warm/hot, then lightheaded, then fell to the ground/lowered herself down without injuring herself. She is being managed for the following: #. GI bleed Patient denies any history of GI bleed, however reports some blood in the shower about a month ago FINISH FILER, did not seek medical attention for it. Patient never had colonoscopy due to resilience to prep. Likely chronic GI bleed. Admitting FOBT positive in ED. Presenting hemoglobin 7.0. Status post 2 unit PRBC. GI consulted and offered colonoscopy but patient refused. Patient was planned to undergo EGD EUS on 03/03 and heparin was held for the same but she was stroke alert on 03/03 AM and the EGD was canceled. Further GI procedures postponed until patient is stable. Upon discussion with GI, they won't prefer Scope until about 2 months from stroke. Patient currently on heparin drip for stroke, hemoglobin stable around 8-9 Continue to monitor hemoglobin daily and as needed. Transfuse for hemoglobin less than 7. #. Stroke patient was stroke alert 03/03 morning (When being woken up by the nurse @0615 HRS, patient had difficulty speaking/expressing herself), and has some neurological deficits, left face and LUE weakness was noted. Was able to move left arm on the day. 03/03 CT head, CTA head and neck negative 03/03 MRI Head: Numerous small acute infarcts of the cerebral and cerebellar hemispheres within a multiple vascular distribution are likely embolic with a proximal source. 03/03 echo: EF 65 to 70%, no interatrial shunt noted. f/u 03/04 CT Head: Redemonstration of several acute infarcts better depicted on MRI of March 03, 2021. No acute hemorrhage. No significant mass effect. f/u 03/05 CT Head: Evolving acute infarctions of the superior right frontal lobe. The additional tiny acute infarcts described on the brain MRI from 03/03/2021 are not definitively seen. No acute intracranial Hge. 03/09: Patient's heparin drip was stopped before and immediately after liver biopsy to avoid the complication of subcapsular hemorrhage. 03/09: Patient had liver biopsy, heparin held after liver biopsy to avoid the risks of subcapsular hemorrhage. Per literature Search, safely resuming anticoagulation appears to be around 48 to 72 hours from the procedure. 03/10 CT head: Large area of decreased attenuation with blurring of the kiran- white interface within the superior right frontal lobe with new moderate similar appearing area within the right temporal parietal lobe. These findings have progressed from the brain MRI dated 03/03/[address] from 03/05/2021 suggestive of acute on subacute infarcts with progressive cytotoxic edema. At bedside, patient speaks few words but clear articulation, not able to cooperate fully, lethargic. Clinically worsening. 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 Due to absence of PFO in echo, could be hypercoagulable state. Neurology on board: Agrees with heparin now and switch to warfarin. Recommends CT head as needed if mentation changes or headache. 03/10 neurology updated about the new CT head finding on 03/10, no new recommendation at this point and comfort care will be a better option for her. Phone conversation with Dr. Almodovar 03/05 -recommends transition to warfarin given her circumstances and the need for easy reversibility. Phone conversation with Dr. Charles Reaves 03/10 regarding the timeframe to start anticoagulation after liver biopsy on 03/09, since she has risk factor/recent stroke, she will need anticoagulation and recommended continuing heparin, with transition to other forms once patient is deemed safe for risk of subcapsular hemorrhage secondary to recent liver biopsy. Also recommends transition to enoxaparin and avoiding Eliquis/rivaroxaban. For now continue with heparin drip, CT head for any further worsening of her mentation, CT abdomen for any new belly pain/worsening hemoglobin. C/w PT/OT, patient's contacted 03/10 to update on new CT head findings, went to [employer], left message to call back. #. Acute PE #. DVT Admitting CTA chest was positive for right-sided pulmonary emboli Admitting US Doppler was positive for bilateral DVT Admitting Echo obtained - EF 65 to 70%. RV is normal size. RV systolic function is normal. Admitting hemoglobin 7.0, status post 2 unit, heparin drip started without bolus. Continue heparin, for anticoagulation - see above. #. Abnormal CT scan 03/01 CTAP: Multiple lesions in liver, concerning for possible metastatic/malignant process Patient and daughter aware GI consulted: Recommends possible IR biopsy of the liver when stable. 03/09 liver biopsy: Await results #. Leukocytosis -source unknown WBC up trended 03/03-03/06, pro-Rahul elevated at 0.62 on 03/06 Highest temperature on 03/03 -37.8C On examination, skin negative for infection/cellulitis and lung sounds clear/exam negative for meningitis signs. 03/06 CXR less concerning for airspace disease. 03/06 UA looks dirty and is suggestive of UTI but patient does not have any signs and symptoms and urine culture is negative. Patient started on Rocephin 03/06, pro-Rahul uptrending, send blood culture, changed to Zosyn 03/08. Pro-Rahul and WBC still uptrending on 03/09 hence consulted ID. 03/10: Patient switched to vancomycin, metronidazole, cefepime for uptrending WB C and procalcitonin; await ID recommendation. #. Elevated troponin: -likely secondary to above -Patient has no chest pain and no history of chest pain -Echocardiogram as above #. Hypothyroidism Continue levothyroxine #. CKD stage III Monitor kidney function while inpatient #. Hyperlipidemia -c/w statin Code: DNR/DNI Disposition: PT/OT recs, CM to assist with DC planning. PT recommending Rehab. Palliative care on boardfagaly wants the results on liver biopsy to figure out her prognosis, patient is agreeable to rehab when stable for discharge. CM working on [facility]. Will likely benefit from comfort care, palliative care working on it. Admission and Anticipated Discharge Date Admission Date: March 01, 2021 Subjective Patient was lying in bed, on room air, more lethargic than yesterday. Patient was able to answer any worse. Patient reported that she is not having any pain. Other review of symptoms are limited due to patient's mental condition. She looks worsening with regard to her mentation, weakness of extremities could not be fully assessed due to her inability to cooperate during exam. But definitely looks it is worsening. I tried to call her but went into voicemail, left message. Discussed with palliative care in person. Physical Exam Physical Exam: GENERAL: AON/A. NAD, on RA. Lethargic HEENT: No pallor, no icterus. Pupils equal, round and reactive to light. Oral mucosa moist. Face: Flattening of left nasolabial fold, frowning and eye closing preserved - n/a. Tongue deviation -n/a NECK: No JVD, no neck masses. HEART: S1 and S2 heard. Regular rate and rhythm. No murmur, no gallop. RESPIRATORY SYSTEM: Normal AP diameter. No accessory muscle use. No wheezing, no crackles. ABDOMEN: Soft, bowel sounds present, nontender, no distention. CENTRAL NERVOUS SYSTEM: Left facial droop. Speech is clear though she answers in few words. Obeys simple commands. LUE 0/5, LLE 0/5. RLE weakness on dorsiflexion. Reflexes preserved. EXTREMITIES: No edema, no erythema seen. Results & Data Results & Data ([facility]) Vital Signs (Past 12 Hours) Vital Signs Temp Pulse Resp BP Pulse Ox 03/10/21 05:49 36.6 C 96 H 21 142/75 H 97 (1) GI bleed GI bleed type/associated pathology: unspecified gastrointestinal hemorrhage type Qualified Code(s): K92.2 - Gastrointestinal hemorrhage, unspecified (2) Acute pulmonary embolism Acute cor pulmonale presence: unspecified Pulmonary embolism type: unspecified Qualified Code(s): I26.99 - Other pulmonary embolism without acute cor pulmonale
[2021-03-10] MEDS: PRAVASTATIN SOD 10 MG TAB PO SCH (20:03)
[2021-03-10 21:31] LABS: Partial Thromboplastin Ratio 1.8
[2021-03-10 22:11] LABS: Partial Thromboplastin Time 48.2 Seconds (21.0-31.0)
[2021-03-11] MEDS: metroNIDAZOLE 500 MG/100 ML BAG IV SCH (03:37)
[2021-03-11] MEDS: SODIUM CHLORIDE 0.9% 1000ML 1,000 ML IV SCH ×2 (03:37→19:34)
[2021-03-11] MEDS: LEVOTHYROXINE SODIUM 75 MCG TABLET PO SCH (03:38)
[2021-03-11 05:51] LABS: Hematocrit (blood only) 23.4 % (37-47); Hemoglobin 7.6 g/dL (12.0-16.0); Mean Corpuscular Hemoglobin 27.8 pg (25-34); Mean Corpuscular Hgb Conc 32.5 g/dL (32-36); Mean Corpuscular Volume 85.7 fL (80-100); Mean Platelet Volume 11.8 fL (7.4-10.4); Platelet Count 106 K/uL (130-400); RDW Coefficient of Variation 15.6 % (11.5-14.5); RDW Standard Deviation 48.1 fL (36.4-46.3); Red Blood Count 2.73 M/uL (4.2-5.4); White Blood Count 20.83 K/uL (4.8-10.8)
[2021-03-11 06:13] LABS: Partial Thromboplastin Ratio 1.9
[2021-03-11 06:14] LABS: Partial Thromboplastin Time 49.6 Seconds (21.0-31.0)
[2021-03-11 06:24] LABS: BUN Creatinine Ratio 28.9 (10-20); Calcium 8.2 mg/dl (8.5-10.1); Creatinine Clr Calc Pharmacy 38.4 ml/min; Est GFR (African American) 65.7 ml/min; Est GFR (Non-African American) 56.6 ml/min; Potassium 3.5 mmol/L (3.5-5.1)
[2021-03-11] MEDS ORDERED: VANCOMYCIN HCL 1,000 MG in SODIUM CHLORIDE 0.9% 250 ML IV SCH (07:30)
--- NOTE | 2021-03-11 09:13 | Palliative Care Progress Note ---
Date of Service March 11, 2021 Assessment & Plan (1) Weakness: Plan: Pt continues to be weak. (2) Palliative care encounter: Plan: Lengthy conversation held with patient daughter Caren on the phone this morning just outside of her mothers room. We were to have a phone conference call with her and her father and two other siblings regarding transitioning home with hospice at 0930; however, due to her significant clinical change and decline, I suggested that her and her father come to the hospital and notify their siblings as well. Family has been clear over the past 24 hours that they were considering home with hospice. I discussed aggressive vs conservative measures and confirmed that prior to their arrival they would NOT want any aggressive measures taken (CPR, shocking, intubation, additional CT scans, nor vasoactive medications). Update: I met the patients , Anson; and two daughters Anita and Caren in the lobby to discuss her current condition. All in agreement for full transition to BUSINESS CONTINUITY DIRECTOR. The patients son, Loc, is en route to join the family and will arrive around 1PM. All non comfort focused medications have been discontinued. Morphine 2mg IV Q1 PRN ordered for pain and air hunger. Creatinine is 0.98 and I do not anticipate opioid toxicity with the Morphine. Routine Ativan 1 mg Q6 for seizure prophylaxis as she does have some posturing and anticipated hemorrhage; and Robinul 0.2 mg IV Q3 PRN for secretions. I discussed what the family could expect regarding breathing pattern changes and other end of life assessment expectations. I also discussed moments of clarity and to embrace this if it occurs, rather than second guess a comfort transition. Life expectancy hours to a few days. All of the above and below discussed with Mia ROSARIO, Dr. Do, and Edith ROSARIOelectromechanical equipment tester. Visitation cleared by Peter Daniel phlebotomist supervisor/instructor and desk lieutenant aware. Nursing ordered bereavement cart for the bedside. (3) CVA (cerebral vascular accident): Plan: Worsening mental status compared to yesterday. Patient fully obtunded today. Head CT ordered yesterday and additional large CVA noted. Heparin drip restarted yesterday just prior to going to CT. Anticoagulation was on hold post liver biopsy. (4) Liver lesion: Plan: Biopsy performed two days ago. Anticoagulation restarted yesterday. (5) Altered mental status: Plan: Patient mental status worsening today compared to yesterday. Patient fully obtunded and not responding to verbal or tactile stimulation. Pt not taking any sedating medications. (6) Dehydration: Plan: Labs reviewed with Dr. Garcia. Dark urine output and patient was tachycardic; now, normal rate. IV 0.9 NS fluids started at 80mL/hour. poor oral intake. confirmed with family that patient would not want artificial nutrition. (7) Hypoxia: Plan: Likely related to CVA. SpO2 ranging 70-80, now on supplemental O2 via 10L oxymask. Was on room air prior to this morning. Admission and Anticipated Discharge Date Admission Date: March 01, 2021 Subjective Patient fully obtunded this morning and not responsive to verbal or tactile stimulation. She even appears to be decorticate with her posturing. Per nursing, her pupils are fixed and unequal. While standing in the room she became hypoxic with an SpO2 in the low 70's. Some mottling noted on her left knee. Patient anticipated to be hemorrhaging. See A/P for further details. Review of Systems Review of Systems: [place] Symptom Assessment Scale Pain 1/3 By observation Dyspnea 2/3 by observation Anxiety 0/3 Drowsiness 3/3 Palliative Performance Score 10% Physical Exam Constitutional: + ill appearing and + frail appearing ENMT: Mouth: + dry oral mucous membranes Respiratory: + abnormal respiratory pattern Auscultation: + diminished lung sounds Cardiovascular: Rate/Rhythm: regular rate Heart Sounds: normal S1 and normal S2 Extremities: normal capillary refill; no edema Gastrointestinal (Abdomen): Inspection/Auscultation: abdomen normal to inspection Neurologic: + obtunded Results & Data ([facility]) Vital Signs (Past 12 Hours) Vital Signs Temp Pulse Pulse Resp BP Pulse Ox 03/11/21 03:45 36.7 C 86 19 182/63 H 99 03/11/21 00:06 37.1 C 91 H 19 134/72 95 03/10/21 23:45 92 H PG Care Time/CCT Total # of Minutes Spent Total Time Spent with Patient: Total time spent is greater than 50% in coordination of care (as documented) at patient's floor/unit and/or counseling patient: 45 minutes with > 50% of that time spent assessing the patient, discussing goals of care with family, assessing and addressing symptom management needs, and collaborating with IDT Coding Level of Care Code 92585 Subseq Hosp Care Lvl 3 Diagnoses Weakness R53.1 Palliative care encounter Z51.5 CVA (cerebral vascular accident) I63.9 Liver lesion K76.9 Altered mental status R41.82 Dehydration E86.0 Hypoxia R09.02 Time Spent (min) 45
[2021-03-11] MEDS ORDERED: GLYCOPYRROLATE 0.2 MG/ML VIAL IV PRN (10:53)
[2021-03-11] MEDS: LORazepam 1 MG/2 ML VIAL IV SCH ×3 (11:15→23:32)
[2021-03-11] MEDS ORDERED: LORazepam 2 MG/4 ML VIAL IV PRN (11:27)
[2021-03-11] MEDS: MoRPHine SULFATE 2 MG/ML CARP IV PRN (15:07)
--- NOTE | 2021-03-11 21:30 | Hospitalist Progress Note ---
Date of Service March 11, 2021 delayed entry date of service noted above Assessment & Plan (1) CVA (cerebral vascular accident): (2) GI bleed: (3) Acute pulmonary embolism: (4) Leukocytosis: Plan: per Dr. Garcia's notes with addendum 80-year-old female with history of hyperlipidemia, hypothyroidism, CKD stage III, who presented 03/01 for near syncopal event. She got in shower and got very warm/hot, then lightheaded, then fell to the ground/lowered herself down without injuring herself. She is being managed for the following: #. 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 Patient never had colonoscopy due to resilience to prep. Likely chronic GI bleed. Admitting FOBT positive in ED. Presenting hemoglobin 7.0. Status post 2 unit PRBC. GI consulted and offered colonoscopy but patient refused. Patient was planned to undergo EGD EUS on 03/03 and heparin was held for the same but she was stroke alert on 03/03 AM and the EGD was canceled. Further GI procedures postponed until patient is stable. Upon discussion with GI, they won't prefer Scope until about 2 months from stroke. Patient currently on heparin drip for stroke, hemoglobin stable around 8-9 10/14 - Hg 7.6 family did not wish to proceed with further interventions #. Stroke patient was stroke alert 03/03 morning (When being woken up by the nurse @0615 HRS, patient had difficulty speaking/expressing herself), and has some neurological deficits, left face and LUE weakness was noted. Was able to move left arm on the day. 03/03 CT head, CTA head and neck negative 03/03 MRI Head: Numerous small acute infarcts of the cerebral and cerebellar hemispheres within a multiple vascular distribution are likely embolic with a proximal source. 03/03 echo: EF 65 to 70%, no interatrial shunt noted. f/u 03/04 CT Head: Redemonstration of several acute infarcts better depicted on MRI of March 03, 2021. No acute hemorrhage. No significant mass effect. f/u 03/05 CT Head: Evolving acute infarctions of the superior right frontal lobe. The additional tiny acute infarcts described on the brain MRI from 03/03/2021 are not definitively seen. No acute intracranial Hge. 03/09: Patient's heparin drip was stopped before and immediately after liver biopsy to avoid the complication of subcapsular hemorrhage. 03/09: Patient had liver biopsy, heparin held after liver biopsy to avoid the risks of subcapsular hemorrhage. Per literature Search, safely resuming anticoagulation appears to be around 48 to 72 hours from the procedure. 03/10 CT head: Large area of decreased attenuation with blurring of the kiran- white interface within the superior right frontal lobe with new moderate similar appearing area within the right temporal parietal lobe. These findings have progressed from the brain MRI dated 03/03/[address] from 03/05/2021 suggestive of acute on subacute infarcts with progressive cytotoxic edema. At bedside, patient speaks few words but clear articulation, not able to cooperate fully, lethargic. Clinically worsening. 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 Due to absence of PFO in echo, could be hypercoagulable state. Neurology on board: Agrees with heparin now and switch to warfarin. Recommends CT head as needed if mentation changes or headache. 03/10 neurology updated about the new CT head finding on 03/10, no new recommendation at this point and comfort care will be a better option for her. Phone conversation with Dr. Almodovar 03/05 -recommends transition to warfarin given her circumstances and the need for easy reversibility. Phone conversation with Dr. Charles Reaves 03/10 regarding the timeframe to start anticoagulation after liver biopsy on 03/09, since she has risk factor/recent stroke, she will need anticoagulation and recommended continuing heparin, with transition to other forms once patient is deemed safe for risk of subcapsular hemorrhage secondary to recent liver biopsy. Also recommends transition to enoxaparin and avoiding Eliquis/rivaroxaban. 03/12 (+) minimally responsive decorticate posturing family did not wish to proceed with further interventions transitioned to comfort measures appears peaceful, not in distress continue PRN meds #. Acute PE #. DVT Admitting CTA chest was positive for right-sided pulmonary emboli Admitting US Doppler was positive for bilateral DVT Admitting Echo obtained - EF 65 to 70%. RV is normal size. RV systolic function is normal. Admitting hemoglobin 7.0, status post 2 unit, heparin drip started without bolus. -- placed on heparin #. Abnormal CT scan 03/01 CTAP: Multiple lesions in liver, concerning for possible metastatic/malignant process Patient and daughter aware GI consulted: Recommends possible IR biopsy of the liver when stable. 03/09 liver biopsy: Await results #. Leukocytosis -source unknown WBC up trended 03/03-03/06, pro-Rahul elevated at 0.62 on 03/06 Highest temperature on 03/03 -37.8C On examination, skin negative for infection/cellulitis and lung sounds clear/exam negative for meningitis signs. 03/06 CXR less concerning for airspace disease. 03/06 UA looks dirty and is suggestive of UTI but patient does not have any signs and symptoms and urine culture is negative. Patient started on Rocephin 03/06, pro-Rahul uptrending, send blood culture, changed to Zosyn 03/08. Pro-Rahul and WBC still uptrending on 03/09 hence consulted ID. 03/10: Patient switched to vancomycin, metronidazole, cefepime for uptrending WBC and procalcitonin #. Elevated troponin: -likely secondary to above -Patient has no chest pain and no history of chest pain -Echocardiogram as above Code: DNR/DNI Disposition: comfort measures status only Admission and Anticipated Discharge Date Admission Date: March 01, 2021 Subjective ff up for liver mass, PE, Acute CVA, etc patient noted to be minimally responsive, decorticate posturing in AM palliative care service discussed with family they are declining any further interventions transitioned to comfort measures only seen at bedside with and son visiting not responsive but not in distress, peaceful, not tachypneic no other issues Review of Systems Review of Systems: all noted and negative except for above Physical Exam Physical Exam: General- not in distress Lungs- (+) clear to ausculation Ext- mild edema (1) Acute pulmonary embolism Acute cor pulmonale presence: unspecified Pulmonary embolism type: unspecified Qualified Code(s): I26.99 - Other pulmonary embolism without acute cor pulmonale (2) GI bleed GI bleed type/associated pathology: unspecified gastrointestinal hemorrhage type Qualified Code(s): K92.2 - Gastrointestinal hemorrhage, unspecified
[2021-03-12] MEDS: LORazepam 1 MG/2 ML VIAL IV SCH ×3 (05:35→16:35)
[2021-03-12] MEDS: SODIUM CHLORIDE 0.9% 1000ML 1,000 ML IV SCH (07:39)
--- NOTE | 2021-03-12 09:53 | Palliative Care Progress Note ---
Date of Service March 12, 2021 Assessment & Plan (1) Palliative care encounter: Plan: Goal of care is strictly comfort at this time. I met with family at bedside. Ryann appears comfortable. We discussed what to expect. She is likely to within hours to a day or two. Family had questions about hydration which were addressed. They had considered going home with hospice at one point but do not feel able to manage her care at home. I do not think that she would survive transfer to SNF. (2) CVA (cerebral vascular accident): Plan: Continue routine lorazepam for seizure prophylaxis. 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 Admission and Anticipated Discharge Date Admission Date: March 01, 2021 Subjective No response to painful stimulus. Family at bedside Review of Systems Review of Systems: Unobtainable due to reduced consciousness [place] Symptom Assessment Scale Pain by observation 0/3 Dyspnea by observation 0/3 Palliative Performance Score 10% Physical Exam Constitutional: comfortable ENMT: Mouth: + dry oral mucous membranes Respiratory: shallow respirations, no audible rhonchi Cardiovascular: Rate/Rhythm: regular rate and regular rhythm mottling of knees and feet noted Gastrointestinal (Abdomen): soft Neurologic: + obtunded left side flaccid PG Care Time/CCT Total # of Minutes Spent Total Time Spent: 38 Total Time Spent with Patient: Total time spent is greater than 50% in coordination of care (as documented) at patient's floor/unit and/or counseling patient: hospice, symptom management, prognosis, family education and support Coding Level of Care Code 43261 Subseq Hosp Care Lvl 3 Diagnoses CVA (cerebral vascular accident) I63.9 Liver lesion K76.9 Palliative care encounter Z51.5
[2021-03-12] MEDS: MoRPHine SULFATE 2 MG/ML CARP IV PRN ×3 (16:35→20:57)
--- NOTE | 2021-03-12 18:32 | Hospitalist Progress Note ---
Date of Service March 12, 2021 Assessment & Plan (1) CVA (cerebral vascular accident): (2) GI bleed: (3) Acute pulmonary embolism: (4) Leukocytosis: Plan: per Dr. Garcia's notes with addendum 80-year-old female with history of hyperlipidemia, hypothyroidism, CKD stage III, who presented 03/01 for near syncopal event. She got in shower and got very warm/hot, then lightheaded, then fell to the ground/lowered herself down without injuring herself. She is being managed for the following: #. 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 Patient never had colonoscopy due to resilience to prep. Likely chronic GI bleed. Admitting FOBT positive in ED. Presenting hemoglobin 7.0. Status post 2 unit PRBC. GI consulted and offered colonoscopy but patient refused. Patient was planned to undergo EGD EUS on 03/03 and heparin was held for the same but she was stroke alert on 03/03 AM and the EGD was canceled. Further GI procedures postponed until patient is stable. Upon discussion with GI, they won't prefer Scope until about 2 months from stroke. Patient currently on heparin drip for stroke, hemoglobin stable around 8-9 10/ - Hg 7.6 family did not wish to proceed with further interventions #. Stroke patient was stroke alert 03/03 morning (When being woken up by the nurse @0615 HRS, patient had difficulty speaking/expressing herself), and has some neurological deficits, left face and LUE weakness was noted. Was able to move left arm on the day. 03/03 CT head, CTA head and neck negative 03/03 MRI Head: Numerous small acute infarcts of the cerebral and cerebellar hemispheres within a multiple vascular distribution are likely embolic with a proximal source. 03/03 echo: EF 65 to 70%, no interatrial shunt noted. f/u 03/04 CT Head: Redemonstration of several acute infarcts better depicted on MRI of March 03, 2021. No acute hemorrhage. No significant mass effect. f/u 03/05 CT Head: Evolving acute infarctions of the superior right frontal lobe. The additional tiny acute infarcts described on the brain MRI from 03/03/2021 are not definitively seen. No acute intracranial Hge. 03/09: Patient's heparin drip was stopped before and immediately after liver biopsy to avoid the complication of subcapsular hemorrhage. 03/09: Patient had liver biopsy, heparin held after liver biopsy to avoid the risks of subcapsular hemorrhage. Per literature Search, safely resuming anticoagulation appears to be around 48 to 72 hours from the procedure. 03/10 CT head: Large area of decreased attenuation with blurring of the kiran- white interface within the superior right frontal lobe with new moderate similar appearing area within the right temporal parietal lobe. These findings have progressed from the brain MRI dated 03/03/[address] from 03/05/2021 suggestive of acute on subacute infarcts with progressive cytotoxic edema. At bedside, patient speaks few words but clear articulation, not able to cooperate fully, lethargic. Clinically worsening. 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 Due to absence of PFO in echo, could be hypercoagulable state. Neurology on board: Agrees with heparin now and switch to warfarin. Recommends CT head as needed if mentation changes or headache. 03/10 neurology updated about the new CT head finding on 03/10, no new recommendation at this point and comfort care will be a better option for her. Phone conversation with Dr. Almodovar 03/05 -recommends transition to warfarin given her circumstances and the need for easy reversibility. Phone conversation with Dr. Charles Reaves 03/10 regarding the timeframe to start anticoagulation after liver biopsy on 03/09, since she has risk factor/recent stroke, she will need anticoagulation and recommended continuing heparin, with transition to other forms once patient is deemed safe for risk of subcapsular hemorrhage secondary to recent liver biopsy. Also recommends transition to enoxaparin and avoiding Eliquis/rivaroxaban. 03/12 (+) minimally responsive decorticate posturing family did not wish to proceed with further interventions transitioned to comfort measures appears peaceful, not in distress continue PRN meds #. Acute PE #. DVT Admitting CTA chest was positive for right-sided pulmonary emboli Admitting US Doppler was positive for bilateral DVT Admitting Echo obtained - EF 65 to 70%. RV is normal size. RV systolic functio n is normal. Admitting hemoglobin 7.0, status post 2 unit, heparin drip started without bolus. -- placed on heparin--> discontinued #. Abnormal CT scan 03/01 CTAP: Multiple lesions in liver, concerning for possible metastatic/malignant process Patient and daughter aware GI consulted: Recommends possible IR biopsy of the liver when stable. 03/09 liver biopsy: results pending #. Leukocytosis -source unknown WBC up trended 03/03-03/06, pro-Rahul elevated at 0.62 on 03/06 Highest temperature on 03/03 -37.8C On examination, skin negative for infection/cellulitis and lung sounds clear/exam negative for meningitis signs. 03/06 CXR less concerning for airspace disease. 03/06 UA looks dirty and is suggestive of UTI but patient does not have any signs and symptoms and urine culture is negative. Patient started on Rocephin 03/06, pro-Rahul uptrending, send blood culture, changed to Zosyn 03/08. Pro-Rahul and WBC still uptrending on 03/09 hence consulted ID. 03/10: Patient switched to vancomycin, metronidazole, cefepime for uptrending WBC and procalcitonin #. Elevated troponin: -likely secondary to above -Patient has no chest pain and no history of chest pain -Echocardiogram as above Code: DNR/DNI Disposition: comfort measures status only Admission and Anticipated Discharge Date Admission Date: March 01, 2021 Subjective ff up for PE, acute CVA seen with family at bedside peaceful, not in distress unresponsive no other issues Review of Systems Review of Systems: Unobtainable due to reduced consciousness Results & Data Results & Data ([place]) Vital Signs (Past 12 Hours) all noted and reviewed including below (1) Acute pulmonary embolism Acute cor pulmonale presence: unspecified Pulmonary embolism type: unspecified Qualified Code(s): I26.99 - Other pulmonary embolism without acute cor pulmonale (2) GI bleed GI bleed type/associated pathology: unspecified gastrointestinal hemorrhage type Qualified Code(s): K92.2 - Gastrointestinal hemorrhage, unspecified
--- NOTE | 2021-03-14 09:54 | Death Pronouncement Note ---
Date of Service March 14, 2021 Pronouncement Note Admission Date Admission Date: March 01, 2021 Date and Time of Date of : 03/12/21 Time of : 22:40 Contributing Factors (1) CVA (cerebral vascular accident): (2) GI bleed: (3) Acute pulmonary embolism: (4) Leukocytosis: Additional Data Confirmation of : no pulse, no respirations, no heart sounds and pupils fixed and dilated Family: at bedside Attending physician: Dirk Do MD
--- NOTE | 2021-03-23 11:13 | Discharge Summary ---
Date of Service March 23, 2021 Admission HPI Per Admitting Provider Patient is a 80-year-old female with history of hyperlipidemia, hypothyroidism, CKD stage III, who presented today at urgent care center due to shortness of breath, dizziness, weakness especially with exertion for several months. Today she was showering, and became quite lightheaded, lowered herself, and then her had to help her to bed. She denies hitting anything such as her head or anything in her body. About a month ago, she reports she was showering and noticed blood, thought it looked like a menstrual period, however she only mentioned it to her and not to any physician. She denies seeing any blood when having bowel movements. She also reports never having a colonoscopy, as she did not want to do prep. In the ED, evaluation significant for anemia with hemoglobin of 7, platelets 92, stool heme positive. In addition D-dimer over 35,000, and CT PE was obtained and confirmed right-sided pulmonary embolism with possible pulmonary infarct. INR elevated at 1.6 and troponin elevated at 1.6. CT abdomen significant for numerous lesions in liver concerning for metastatic disease. Patient has no prior history of cancer. There was also small splenic infarct noted on PET/CT. EKG showing sinus rhythm. 2 units of PRBCs ordered in ED. Patient's daughter arrived to ED room, and I was able to update her. ROS: Currently patient is alert oriented answering questions appropriately. She denies any chest pain or any history of chest pain. Shortness of breath on exertion, currently however has no shortness of breath and breathing comfortably on room air. No abdominal pain. No nausea vomiting. Denies any diarrhea. Admission Exam (Per Admitting) Constitutional Constitutional: WD/WN, vitals as above in NAD Eyes: PERRL, conjunctivae normal, anicteric sclerae ENMT: external ear and nose normal, oropharynx normal Neck: normal visual inspection Respiratory: normal respiratory effort, lungs clear to auscultation Cardiovascular: RRR, no murmur, no edema Chest (Breasts): Chest: normal inspection of chest Gastrointestinal (Abdomen): Percussion/Palpation: abdomen soft; abdomen no ntender, no guarding and abdomen not rigid + normal bowel sounds Musculoskeletal: no cyanosis or clubbing, extremities motor strength 5/5 Skin: no rashes, warm and dry Neurologic: PERRL, EOMI, accommodation nl, no face palsy, no dysarthria Psychiatric: A+Ox3, euthymic affect Genitourinary: no CVA tenderness Lymphatic: no lymphedema Discharge Data Consultations 03/01/21 10:24 ED Decision to Admit Stat 03/01/21 10:44 Consult Gastroenterology Routine 03/03/21 08:13 Consult Neurology Routine 03/03/21 11:32 Consult Palliative Care Routine 03/05/21 13:21 Consult Radiology Routine 03/09/21 07:13 Consult Infectious Diseases Routine Procedures Performed Operation Date: 03/03/21 07:00 <No data on this case meets the specified criteria> Hospital Course (1) CVA (cerebral vascular accident): (2) GI bleed: (3) Acute pulmonary embolism: (4) Leukocytosis: per Dr. Garcia's notes with addendum 80-year-old female with history of hyperlipidemia, hypothyroidism, CKD stage III, who presented 03/01 for near syncopal event. She got in shower and got very warm/hot, then lightheaded, then fell to the ground/lowered herself down without injuring herself. She is being managed for the following: #. 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 Patient never had colonoscopy due to resilience to prep. Likely chronic GI bleed. Admitting FOBT positive in ED. Presenting hemoglobin 7.0. Status post 2 unit PRBC. GI consulted and offered colonoscopy but patient refused. Patient was planned to undergo EGD EUS on 03/03 and heparin was held for the same but she was stroke alert on 03/03 AM and the EGD was canceled. Further GI procedures postponed until patient is stable. Upon discussion with GI, they won't prefer Scope until about 2 months from stroke. Patient currently on heparin drip for stroke, hemoglobin stable around 8-9 10/14 - Hg 7.6 family did not wish to proceed with further interventions #. Stroke patient was stroke alert 03/03 morning (When being woken up by the nurse @0615 HRS, patient had difficulty speaking/expressing herself), and has some neurological deficits, left face and LUE weakness was noted. Was able to move left arm on the day. 03/03 CT head, CTA head and neck negative 03/03 MRI Head: Numerous small acute infarcts of the cerebral and cerebellar hemispheres within a multiple vascular distribution are likely embolic with a proximal source. 03/03 echo: EF 65 to 70%, no interatrial shunt noted. f/u 03/04 CT Head: Redemonstration of several acute infarcts better depicted on MRI of March 03, 2021. No acute hemorrhage. No significant mass effect. f/u 03/05 CT Head: Evolving acute infarctions of the superior right frontal lobe. The additional tiny acute infarcts described on the brain MRI from 03/03/2021 are not definitively seen. No acute intracranial Hge. 03/09: Patient's heparin drip was stopped before and immediately after liver biopsy to avoid the complication of subcapsular hemorrhage. 03/09: Patient had liver biopsy, heparin held after liver biopsy to avoid the risks of subcapsular hemorrhage. Per literature Search, safely resuming anticoagulation appears to be around 48 to 72 hours from the procedure. 03/10 CT head: Large area of decreased attenuation with blurring of the kiran- white interface within the superior right frontal lobe with new moderate similar appearing area within the right temporal parietal lobe. These findings have progressed from the brain MRI dated 03/03/[address] from 03/05/2021 suggestive of acute on subacute infarcts with progressive cytotoxic edema. At bedside, patient speaks few words but clear articulation, not able to cooperate fully, lethargic. Clinically worsening. 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 Due to absence of PFO in echo, could be hypercoagulable state. Neurology on board: Agrees with heparin now and switch to warfarin. Recommends CT head as needed if mentation changes or headache. 03/10 neurology updated about the new CT head finding on 03/10, no new recommendation at this point and comfort care will be a better option for her. Phone conversation with Dr. Almodovar 03/05 -recommends transition to warfarin given her circumstances and the need for easy reversibility. Phone conversation with Dr. Charles Reaves 03/10 regarding the timeframe to start anticoagulation after liver biopsy on 03/09, since she has risk factor/recent stroke, she will need anticoagulation and recommended continuing heparin, with transition to other forms once patient is deemed safe for risk of subcapsular hemorrhage secondary to recent liver biopsy. Also recommends transition to enoxaparin and avoiding Eliquis/rivaroxaban. 03/12 (+) minimally responsive decorticate posturing family did not wish to proceed with further interventions transitioned to comfort measures appears peaceful, not in distress patient pronounced in the evening by Dr. Galan #. Acute PE #. DVT Admitting CTA chest was positive for right-sided pulmonary emboli Admitting US Doppler was positive for bilateral DVT Admitting Echo obtained - EF 65 to 70%. RV is normal size. RV systolic function is normal. Admitting hemoglobin 7.0, status post 2 unit, heparin drip started without bolus. -- placed on heparin--> discontinued #. Abnormal CT scan 03/01 CTAP: Multiple lesions in liver, concerning for possible metastatic/malignant process Patient and daughter aware GI consulted: Recommends possible IR biopsy of the liver when stable. 03/09 liver biopsy: results pending #. Leukocytosis -source unknown WBC up trended 03/03-03/06, pro-Rahul elevated at 0.62 on 03/06 Highest temperature on 03/03 -37.8C On examination, skin negative for infection/cellulitis and lung sounds clear/exam negative for meningitis signs. 03/06 CXR less concerning for airspace disease. 03/06 UA looks dirty and is suggestive of UTI but patient does not have any signs and symptoms and urine culture is negative. Patient started on Rocephin 03/06, pro-Rahul uptrending, send blood culture, ch anged to Zosyn 03/08. Pro-Rahul and WBC still uptrending on 03/09 hence consulted ID. 03/10: Patient switched to vancomycin, metronidazole, cefepime for uptrending WBC and procalcitonin #. Elevated troponin: -likely secondary to above -Patient has no chest pain and no history of chest pain -Echocardiogram as above Code: DNR/DNI Disposition: comfort measures status only
--- NOTE | 2021-03-23 11:20 | Discharge Summary ---
Date of Service March 23, 2021 Admission HPI Per Admitting Provider Patient is a 80-year-old female with history of hyperlipidemia, hypothyroidism, CKD stage III, who presented today at urgent care center due to shortness of breath, dizziness, weakness especially with exertion for several months. Today she was showering, and became quite lightheaded, lowered herself, and then her had to help her to bed. She denies hitting anything such as her head or anything in her body. About a month ago, she reports she was showering and noticed blood, thought it looked like a menstrual period, however she only mentioned it to her and not to any physician. She denies seeing any blood when having bowel movements. She also reports never having a colonoscopy, as she did not want to do prep. In the ED, evaluation significant for anemia with hemoglobin of 7, platelets 92, stool heme positive. In addition D-dimer over 35,000, and CT PE was obtained and confirmed right-sided pulmonary embolism with possible pulmonary infarct. INR elevated at 1.6 and troponin elevated at 1.6. CT abdomen significant for numerous lesions in liver concerning for metastatic disease. Patient has no prior history of cancer. There was also small splenic infarct noted on PET/CT. EKG showing sinus rhythm. 2 units of PRBCs ordered in ED. Patient's daughter arrived to ED room, and I was able to update her. ROS: Currently patient is alert oriented answering questions appropriately. She denies any chest pain or any history of chest pain. Shortness of breath on exertion, currently however has no shortness of breath and breathing comfortably on room air. No abdominal pain. No nausea vomiting. Denies any diarrhea. Discharge Data Consultations 03/01/21 10:24 ED Decision to Admit Stat 03/01/21 10:44 Consult Gastroenterology Routine 03/03/21 08:13 Consult Neurology Routine 03/03/21 11:32 Consult Palliative Care Routine 03/05/21 13:21 Consult Radiology Routine 03/09/21 07:13 Consult Infectious Diseases Routine Procedures Performed Operation Date: 03/03/21 07:00 <No data on this case meets the specified criteria> Hospital Course (1) CVA (cerebral vascular accident): (2) GI bleed: (3) Acute pulmonary embolism: (4) Leukocytosis: per Dr. Garcia's notes with addendum 80-year-old female with history of hyperlipidemia, hypothyroidism, CKD stage III, who presented 03/01 for near syncopal event. She got in shower and got very warm/hot, then lightheaded, then fell to the ground/lowered herself down without injuring herself. She is being managed for the following: #. 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 Patient never had colonoscopy due to resilience to prep. Likely chronic GI bleed. Admitting FOBT positive in ED. Presenting hemoglobin 7.0. Status post 2 unit PRBC. GI consulted and offered colonoscopy but patient refused. Patient was planned to undergo EGD EUS on 03/03 and heparin was held for the same but she was stroke alert on 03/03 AM and the EGD was canceled. Further GI procedures postponed until patient is stable. Upon discussion with GI, they won't prefer Scope until about 2 months from stroke. Patient currently on heparin drip for stroke, hemoglobin stable around 8-9 03/12 - Hg 7.6 family did not wish to proceed with further interventions #. Stroke patient was stroke alert 03/03 morning (When being woken up by the nurse @0615 HRS, patient had difficulty speaking/expressing herself), and has some neurological deficits, left face and LUE weakness was noted. Was able to move left arm on the day. 03/03 CT head, CTA head and neck negative 03/03 MRI Head: Numerous small acute infarcts of the cerebral and cerebellar hemispheres within a multiple vascular distribution are likely embolic with a proximal source. 03/03 echo: EF 65 to 70%, no interatrial shunt noted. f/u 03/04 CT Head: Redemonstration of several acute infarcts better depicted on MRI of March 03, 2021. No acute hemorrhage. No significant mass effect. f/u 03/05 CT Head: Evolving acute infarctions of the superior right frontal lobe. The additional tiny acute infarcts described on the brain MRI from 03/03/2021 are not definitively seen. No acute intracranial Hge. 03/09: Patient's heparin drip was stopped before and immediately after liver biopsy to avoid the complication of subcapsular hemorrhage. 03/09: Patient had liver biopsy, heparin held after liver biopsy to avoid the risks of subcapsular hemorrhage. Per literature Search, safely resuming anticoagulation appears to be around 48 to 72 hours from the procedure. 03/10 CT head: Large area of decreased attenuation with blurring of the kiran- white interface within the superior right frontal lobe with new moderate similar appearing area within the right temporal parietal lobe. These findings have progressed from the brain MRI dated 03/03/[address] from 03/05/2021 suggestive of acute on subacute infarcts with progressive cytotoxic edema. At bedside, patient speaks few words but clear articulation, not able to cooperate fully, lethargic. Clinically worsening. 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 Due to absence of PFO in echo, could be hypercoagulable state. Neurology on board: Agrees with heparin now and switch to warfarin. Recommends CT head as needed if mentation changes or headache. 03/10 neurology updated about the new CT head finding on 03/10, no new recommendation at this point and comfort care will be a better option for her. Phone conversation with Dr. Almodovar 03/05 -recommends transition to warfarin given her circumstances and the need for easy reversibility. Phone conversation with Dr. Charles Reaves 03/10 regarding the timeframe to start anticoagulation after liver biopsy on 03/09, since she has risk factor/recent stroke, she will need anticoagulation and recommended continuing heparin, with transition to other forms once patient is deemed safe for risk of subcapsular hemorrhage secondary to recent liver biopsy. Also recommends transition to enoxaparin and avoiding Eliquis/rivaroxaban. 03/12 (+) minimally responsive decorticate posturing family did not wish to proceed with further interventions transitioned to comfort measures appears peaceful, not in distress patient pronounced in the evening by Dr. Galan #. Acute PE #. DVT Admitting CTA chest was positive for right-sided pulmonary emboli Admitting US Doppler was positive for bilateral DVT Admitting Echo obtained - EF 65 to 70%. RV is normal size. RV systolic function is normal. Admitting hemoglobin 7.0, status post 2 unit, heparin drip started without bolus. -- placed on heparin--> discontinued #. Abnormal CT scan 03/01 CTAP: Multiple lesions in liver, concerning for possible metastatic/malignant process Patient and daughter aware GI consulted: Recommends possible IR biopsy of the liver when stable. 03/09 liver biopsy: results pending #. Leukocytosis -source unknown WBC up trended 03/03-03/06, pro-Rahul elevated at 0.62 on 03/06 Highest temperature on 03/03 -37.8C On examination, skin negative for infection/cellulitis and lung sounds clear/exam negative for meningitis signs. 03/06 CXR less concerning for airspace disease. 03/06 UA looks dirty and is suggestive of UTI but patient does not have any signs and symptoms and urine culture is negative. Patient started on Rocephin 03/06, pro-Rahul uptrending, send blood culture, changed to Zosyn 03/08. Pro-Rahul and WBC still uptrending on 03/09 hence consulted ID. 03/10: Patient switched to vancomycin, metronidazole, cefepime for uptrending WBC and procalcitonin #. Elevated troponin: -likely secondary to above -Patient has no chest pain and no history of chest pain -Echocardiogram as above Code: DNR/DNI Disposition: comfort measures status only
--- NOTE | 2021-03-23 15:52 | Emergency Department Note ---
Impression & Plan GI bleed, Acute blood loss anemia, Acute pulmonary embolism, Elevated troponin ED Provider Note NAME: FARZANEH OTERO AGE: 80 SEX: F : 1940 ARRIVES VIA: Ambulance INFORMANT: Patient ED PROVIDER(S): Dennis Sánchez DO CHIEF COMPLAINT: lightheaded and near syncope HPI: Patient is a 80-year-old female who presents tp the ER for near syncopal event. Patient notes that she got in the shower and got very warm and hot. She felt lightheaded. She fell to the ground/lowered her self down. She did not hit her head or neck. No chest pain or shortness of breath. No nausea, v omiting or diarrhea. No dysuria, urgency, or frequency. No other exacerbating or remitting factors. She does note that this happened yesterday as well while in the shower. She has been getting shortness of breath with exertion for the previous 6 months and has been getting worse. She does not remember ever having a new murmur. ROS: See above HPI for pertinent positives & negatives. A total of 10 systems reviewed and were otherwise negative. PAST MEDICAL HISTORY:See Below PAST SURGICAL HISTORY:See Below FAMILY HISTORY:See Below SOCIAL HISTORY:See Below HOME MEDICATIONS:See Below ALLERGIES:See Below VITALS:See Below PHYSICAL EXAMINATION: GENERAL: Sitting up in bed, alert, well appearing, well nourished, no distress, non-toxic EYE EXAM: normal conjunctiva. PERRL and EOM's grossly intact. OROPHARYNX: no exudate, no erythema, lips, buccal mucosa, and tongue normal and mucous membranes are moist NECK: supple, no nuchal rigidity, no adenopathy, non-tender LUNGS: Clear to auscultation. Normal chest wall mechanics HEART: +YEFRI, S1 normal and S2 normal ABDOMEN: abdomen soft, non-tender, normo-active bowel sounds, no masses, no rebound or guarding. RECTAL: hem + stool UPPER EXTREMITIES: upper extremities are grossly normal. LOWER EXTREMITIES: No pitting edema. NEURO EXAM: Normal sensorium, cranial nerves II-XII grossly intact, normal speech, no gross weakness of arms, no gross weakness of legs. MEDICAL DECISION MAKING: Patient is a 80-year-old female who presents the ER for the above-stated complaint. IV was established blood work was obtained. Labs show no significant leukocytosis but a significant anemia at 7. Unable to find previous hemoglobins. Platelets were low at 92. [place] [address]. BMP with slightly elevated chloride. Troponin was elevated at 1.6. TSH was elevated. UA was clean. Patient was rectally heme positive. CT of the chest was performed and showed PEs. With the heme positive stool and current PEs. Did discuss with the hospitalist. Held on anticoagulation at this time as she will likely need further work-up may benefit from an IVC filter. Patient was updated bedside. Discussed with hospitalist admitted for further work-up. Patient was ordered and given 2 units PRBCs while in the ER. Will defer to the hospitalist for treatment of the PEs as I feel this. At this point to improve the hemoglobin emergently with transfusion prior to placing on any blood thinners with a hemoglobin at 7 Triage Nursing notes reviewed. Limited review of prior medical records performed Vital Signs: reviewed and remarkable for no significant abnormalities Differential diagnosis: Differential diagnosis includes etiologies such as vasovagal event, infection, hypoglycemia, electrolyte abnormalities, cardiac sources, intracerebral event, toxicologic, neurologic, as well as others were entertained. ER treatment provided: See below Diagnostics interpreted by me: ECG: Sinus rhythm rate 72 Normal axis No PVCs QTC 435 Cardiac Monitoring: An order was placed for continuous cardiac monitoring. The monitor shows a rate of 70 with sinus rhythm. Laboratory studies: As stated above and show below. Imaging studies: CT PE shows PEs CT abdomen pelvis shows likely metastatic disease Consultation(s): Discussed with Dr. Nichole for further evaluation Procedures: none Critical Care: I have personally spent 33 minutes of critical care time in the direct management of this patient. This includes bedside care, interpretation of diagnostic studies, and testing, discussion with consultants, patient, and family members, and other required patient management activities. This 33 minutes is in excess of all separately billable procedures. Past Med/Surg History Medical History (Updated 03/11/21 @ 09:30 by JUAN Caceres) Altered mental status CKD (chronic kidney disease) stage 3, GFR 30-59 ml/min Dehydration Hyperlipidemia Hypothyroidism (acquired) Hypoxia Palliative care encounter Weakness Surgical History Hx of cataract surgery S/P laser trabeculoplasty of eye Social History Smoking Status: Never smoker Hx Alcohol Use: Yes Hx Substance Use: No Preferred Language: Yi Communication Ability: Effective marital status: Current Living Situation: Spouse How many Children do You have: 3 Feels Safe at Home: Yes Assistive Devices: Oxygen - Continuous Allergies Allergies Allergy/AdvReac Type Severity Reaction Status Date / Time No Known Allergies Allergy Unverified 03/01/21 07:49 Home Meds Home Medications Medication Instructions Recorded Confirmed B360 Probiotic 1 cap PO QAM 03/01/21 03/01/21 cholecalciferol (vitamin D3) 50 50 mcg PO QAM 03/01/21 03/01/21 mcg (2,000 unit) capsule (Vitamin D3) levothyroxine 75 mcg tablet 75 mcg PO DAILYBB 03/01/21 03/01/21 (Synthroid) lorazepam 1 mg tablet (Ativan) 1 mg SUBLINGUAL UD 03/01/21 03/01/21 pravastatin 10 mg tablet 10 mg PO HS 03/01/21 03/01/21 Results & Data (ED) Laboratory Data Result diagrams: 03/11/21 05:19 03/11/21 05:19 Lab Results 03/01/21 03/01/21 03/01/21 Range/Units 08:10 08:10 08:10 WBC 8.77 (4.8-10.8) K/uL RBC 2.34 L (4.2-5.4) M/uL Hgb 7.0 L (12.0-16.0) g/dL Hct 21.7 L (37-47) % MCV 92.7 (80-100) fL MCH 29.9 (25-34) pg MCHC 32.3 (32-36) g/dL RDW Std Deviation 48.5 H (36.4-46.3) fL RDW Coeff of Garrett 14.8 H (11.5-14.5) % Plt Count 92 L (130-400) K/uL MPV 9.9 (7.4-10.4) fL Immature Gran % (Auto) 0.2 % Neut % (Auto) 81.2 % Lymph % (Auto) 10.5 % [place] % (Auto) 7.3 % Eos % (Auto) 0.7 % Baso % (Auto) 0.1 % Neut # (Auto) 7.12 H (1.4-6.5) K/uL Lymph # (Auto) 0.92 L (1.2-3.4) K/uL [place] # (Auto) 0.64 H (0.11-0.59) K/uL Eos # (Auto) 0.06 (0-0.5) K/uL Baso # (Auto) 0.01 (0-0.2) K/uL Immature Gran # (Auto) 0.02 (0.00-0.02) K/uL Platelet Estimate Decreased L (Normal) Polychromasia 1+ PT 15.6 H Cancelled (9.0-12.0) Seconds INR 1.6 H Cancelled (0.9-1.1) D-Dimer > 90429 H* (0-500) ug/L FEU Sodium (136-145) mmol/L Potassium (3.5-5.1) mmol/L Chloride (98-107) mmol/L Carbon Dioxide (21-32) mmol/L Anion Gap (3-11) BUN (7-18) mg/dl Creatinine (0.6-1.2) mg/dl Est Cr Clr Drug Dosing ml/min Est GFR ( Amer) ml/min Est GFR (Non-Af Amer) ml/min BUN/Creatinine Ratio (10-20) Glucose (70-99) mg/dl Calcium (8.5-10.1) mg/dl Magnesium (1.8-2.4) mg/dl Total Bilirubin (0.2-1) mg/dl AST (15-37) U/L ALT (12-78) U/L Alkaline Phosphatase (45-117) U/L Troponin I (0-0.045) ng/ml Total Protein (6.4-8.2) gm/dl Albumin (3.4-5.0) gm/dl Globulin (2.5-4.0) gm/dl Albumin/Globulin Ratio (0.9-2) TSH (0.300-4.500) uIu/ml Free T4 (0.8-1.6) ng/dl Urine Color Urine Appearance (Clear) Urine pH (4.5-7.5) Ur Specific [place] (1.000-1.030) Urine Protein (Negative) Urine Glucose (UA) (Negative) Urine Ketones (Negative) Urine Blood (Negative) Urine Nitrite (Negative) Urine Bilirubin (Negative) Urine Urobilinogen (Negative) Ur Leukocyte Esterase (Negative) Urine WBC (Auto) (0-5) /hpf Urine RBC (Auto) (0-4) /hpf U Hyaline Cast (Auto) (0-5) /lpf U Epithel Cells (Auto) (0-5) /lpf Urine Bacteria (Auto) (Negative) COVID-19 Eval Order SARS-CoV-2 (PCR) (Negative) Blood Type Antibody Screen Crossmatch 03/01/21 03/01/21 03/01/21 Range/Units 08:10 09:20 09:20 WBC (4.8-10.8) K/uL RBC (4.2-5.4) M/uL Hgb (12.0-16.0) g/dL Hct (37-47) % MCV (80-100) fL MCH (25-34) pg MCHC (32-36) g/dL RDW Std Deviation (36.4-46.3) fL RDW Coeff of Garrett (11.5-14.5) % Plt Count (130-400) K/uL MPV (7.4-10.4) fL Immature Gran % (Auto) % Neut % (Auto) % Lymph % (Auto) % [place] % (Auto) % Eos % (Auto) % Baso % (Auto) % Neut # (Auto) (1.4-6.5) K/uL Lymph # (Auto) (1.2-3.4) K/uL [place] # (Auto) (0.11-0.59) K/uL Eos # (Auto) (0-0.5) K/uL Baso # (Auto) (0-0.2) K/uL Immature Gran # (Auto) (0.00-0.02) K/uL Platelet Estimate (Normal) Polychromasia PT (9.0-12.0) Seconds INR (0.9-1.1) D-Dimer (0-500) ug/L FEU Sodium 142 (136-145) mmol/L Potassium 5.0 (3.5-5.1) mmol/L Chloride 108 H (98-107) mmol/L Carbon Dioxide 27 (21-32) mmol/L Anion Gap 8.0 (3-11) BUN 24 H (7-18) mg/dl Creatinine 0.94 (0.6-1.2) mg/dl Est Cr Clr Drug Dosing 40.0 ml/min Est GFR ( Amer) 67.3 ml/min Est GFR (Non-Af Amer) 58.1 ml/min BUN/Creatinine Ratio 25.0 H (10-20) Glucose 95 (70-99) mg/dl Calcium 8.4 L (8.5-10.1) mg/dl Magnesium 2.3 (1.8-2.4) mg/dl Total Bilirubin 0.3 (0.2-1) mg/dl AST 48 H (15-37) U/L ALT 41 (12-78) U/L Alkaline Phosphatase 256 H (45-117) U/L Troponin I 1.640 H* (0-0.045) ng/ml Total Protein 5.8 L (6.4-8.2) gm/dl Albumin 2.7 L (3.4-5.0) gm/dl Globulin 3.1 (2.5-4.0) gm/dl Albumin/Globulin Ratio 0.9 (0.9-2) TSH 9.360 H (0.300-4.500) uIu/ml Free T4 1.15 (0.8-1.6) ng/dl Urine Color Yellow Urine Appearance Clear (Clear) Urine pH 7.0 (4.5-7.5) Ur Specific [place] 1.005 (1.000-1.030) Urine Protein Negative (Negative) Urine Glucose (UA) Negative (Negative) Urine Ketones Negative (Negative) Urine Blood Negative (Negative) Urine Nitrite Negative (Negative) Urine Bilirubin Negative (Negative) Urine Urobilinogen Negative (Negative) Ur Leukocyte Esterase 2+ H (Negative) Urine WBC (Auto) 10-30 H (0-5) /hpf Urine RBC (Auto) 0-4 (0-4) /hpf U Hyaline Cast (Auto) 0 (0-5) /lpf U Epithel Cells (Auto) >30 H (0-5) /lpf Urine Bacteria (Auto) Negative (Negative) COVID-19 Eval Order Covid19 at [facility] SARS-CoV-2 (PCR) (Negative) Blood Type Antibody Screen Crossmatch 03/01/21 03/01/21 Range/Units 09:20 10:32 WBC (4.8-10.8) K/uL RBC (4.2-5.4) M/uL Hgb (12.0-16.0) g/dL Hct (37-47) % MCV (80-100) fL MCH (25-34) pg MCHC (32-36) g/dL RDW Std Deviation (36.4-46.3) fL RDW Coeff of Garrett (11.5-14.5) % Plt Count (130-400) K/uL MPV (7.4-10.4) fL Immature Gran % (Auto) % Neut % (Auto) % Lymph % (Auto) % [place] % (Auto) % Eos % (Auto) % Baso % (Auto) % Neut # (Auto) (1.4-6.5) K/uL Lymph # (Auto) (1.2-3.4) K/uL [place] # (Auto) (0.11-0.59) K/uL Eos # (Auto) (0-0.5) K/uL Baso # (Auto) (0-0.2) K/uL Immature Gran # (Auto) (0.00-0.02) K/uL Platelet Estimate (Normal) Polychromasia PT (9.0-12.0) Seconds INR (0.9-1.1) D-Dimer (0-500) ug/L FEU Sodium (136-145) mmol/L Potassium (3.5-5.1) mmol/L Chloride (98-107) mmol/L Carbon Dioxide (21-32) mmol/L Anion Gap (3-11) BUN (7-18) mg/dl Creatinine (0.6-1.2) mg/dl Est Cr Clr Drug Dosing ml/min Est GFR ( Amer) ml/min Est GFR (Non-Af Amer) ml/min BUN/Creatinine Ratio (10-20) Glucose (70-99) mg/dl Calcium (8.5-10.1) mg/dl Magnesium (1.8-2.4) mg/dl Total Bilirubin (0.2-1) mg/dl AST (15-37) U/L ALT (12-78) U/L Alkaline Phosphatase (45-117) U/L Troponin I (0-0.045) ng/ml Total Protein (6.4-8.2) gm/dl Albumin (3.4-5.0) gm/dl Globulin (2.5-4.0) gm/dl Albumin/Globulin Ratio (0.9-2) TSH (0.300-4.500) uIu/ml Free T4 (0.8-1.6) ng/dl Urine Color Urine Appearance (Clear) Urine pH (4.5-7.5) Ur Specific [place] (1.000-1.030) Urine Protein (Negative) Urine Glucose (UA) (Negative) Urine Ketones (Negative) Urine Blood (Negative) Urine Nitrite (Negative) Urine Bilirubin (Negative) Urine Urobilinogen (Negative) Ur Leukocyte Esterase (Negative) Urine WBC (Auto) (0-5) /hpf Urine RBC (Auto) (0-4) /hpf U Hyaline Cast (Auto) (0-5) /lpf U Epithel Cells (Auto) (0-5) /lpf Urine Bacteria (Auto) (Negative) COVID-19 Eval Order SARS-CoV-2 (PCR) NEGATIVE (Negative) Blood Type A Positive Antibody Screen NEGATIVE Crossmatch See Detail Administered Medications Discontinued Medications Acetaminophen (Acetaminophen 325 Mg Tab) 650 mg PO Q6H PRN PRN Reason: Fever/pain Stop: 04/06/21 22:40 Last Admin: 03/09/21 18:24 Dose: 650 mg Documented by: [id number] Admin: 03/08/21 19:26 Dose: 650 mg Documented by: [id number] Admin: 03/08/21 10:13 Dose: 650 mg Documented by: [id number] Gadobutrol (Gadobutrol 65ml Vial) 6 ml IV ONCE ONE Stop: 03/03/21 11:45 Last Admin: 03/03/21 11:44 Dose: 6 ml Documented by: [id number] Glycopyrrolate (Glycopyrrolate 0.2 Mg/Ml Vial) 0.2 mg IV Q3H PRN PRN Reason: secretions Stop: 04/10/21 10:52 Last Admin: 03/11/21 17:24 Dose: 0.2 mg Documented by: [id number] Heparin Sodium/Dextrose (Heparin Iv Adult Wt-Based Standard *No* Bolus Protocol) 1 ea IV Q1H [facility]; Protocol Stop: 03/01/21 21:00 Last Admin: 03/01/21 17:59 Dose: Not Given Documented by: [id number] Admin: 03/01/21 17:53 Dose: Not Given Documented by: [id number] Heparin Sodium/Dextrose (Heparin 73277 Unit/500 Ml D5w) Confirm Administered Dose 25,000 units IV .STK-MED ONE Stop: 03/01/21 17:26 Last Admin: 03/01/21 18:33 Dose: Not Given Documented by: [id number] Sodium Chloride (Nss) 500 mls @ 999 mls/hr IV .Q31M [facility] Stop: 03/01/21 07:45 Last Infusion: 03/01/21 08:21 Dose: 0 mls/hr Documented by: [id number] Admin: 03/01/21 07:36 Dose: 999 mls/hr Documented by: [id number] Heparin Sodium/Dextrose (Heparin Sodium/Dextrose) 25,000 units in 500 mls @ 18 mls/hr IV .Q24H [facility]; Protocol Stop: 03/31/21 18:09 Last Titration: 03/03/21 10:29 Dose: 0 units/hr, 0 mls/hr Documented by: [id number] Cosigned by: [id number] Titration: 03/03/21 06:11 Dose: 0 units/hr, 0 mls/hr Documented by: [id number] Cosigned by: [id number] Admin: 03/02/21 20:29 Dose: 900 units/hr, 18 mls/hr Documented by: [id number] Cosigned by: [id number] Titration: 03/02/21 20:29 Dose: 900 units/hr, 18 mls/hr Documented by: [id number] Cosigned by: [id number] Titration: 03/02/21 01:04 Dose: 900 units/hr, 18 mls/hr Documented by: [id number] Cosigned by: [id number] Admin: 03/01/21 18:23 Dose: 900 units/hr, 18 mls/hr Documented by: [id number] Cosigned by: [id number] Dextrose/Lactated Ringer's (D5w And Lactated Ringers) 1,000 mls @ 60 mls/hr IV .[id number] [facility] Stop: 04/02/21 07:14 Last Infusion: 03/03/21 16:16 Dose: 0 mls/hr Documented by: [id number] Admin: 03/03/21 08:37 Dose: 60 mls/hr Documented by: [id number] Sodium Chloride (Nss 1000ml) 500 mls @ 999 mls/hr IV .Q31M ONE Stop: 03/03/21 09:37 Last Infusion: 03/03/21 09:46 Dose: 0 mls/hr Documented by: [id number] Admin: 03/03/21 09:15 Dose: 999 mls/hr Documented by: [id number] Heparin Sodium/Dextrose (Heparin Sodium/Dextrose) 25,000 units in 500 mls @ 18 mls/hr IV .Q24H [facility]; Protocol Stop: 04/02/21 09:59 Last Titration: 03/11/21 09:10 Dose: 0 units/hr, 0 mls/hr Documented by: [id number] Cosigned by: [id number] Titration: 03/11/21 08:59 Dose: 900 units/hr, 18 mls/hr Documented by: [id number] Cosigned by: [id number] Titration: 03/11/21 07:07 Dose: 900 units/hr, 18 mls/hr Documented by: [id number] Cosigned by: [id number] Titration: 03/10/21 22:30 Dose: 900 units/hr, 18 mls/hr Documented by: [id number] Cosigned by: [id number] Titration: 03/10/21 19:22 Dose: 900 units/hr, 18 mls/hr Documented by: [id number] Cosigned by: [id number] Titration: 03/10/21 19:22 Dose: 900 units/hr, 18 mls/hr Documented by: [id number] Cosigned by: [id number] Admin: 03/10/21 14:55 Dose: 900 units/hr, 18 mls/hr Documented by: [id number] Cosigned by: [id number] Titration: 03/09/21 03:54 Dose: 0 units/hr, 0 mls/hr Documented by: [id number] Cosigned by: [id number] Admin: 03/08/21 00:26 Dose: 1,000 units/hr, 20 mls/hr Documented by: [id number] Cosigned by: [id number] Titration: 03/07/21 23:09 Dose: 1,000 units/hr, 20 mls/hr Documented by: [id number] Cosigned by: [id number] Titration: 03/07/21 19:08 Dose: 1,000 units/hr, 20 mls/hr Documented by: [id number] Cosigned by: [id number] Titration: 03/07/21 14:19 Dose: 1,000 units/hr, 20 mls/hr Documented by: [id number] Cosigned by: [id number] Admin: 03/06/21 21:17 Dose: 950 units/hr, 19 mls/hr Documented by: [id number] Cosigned by: [id number] Titration: 03/06/21 20:12 Dose: 950 units/hr, 19 mls/hr Documented by: [id number] Cosigned by: [id number] Titration: 03/06/21 19:09 Dose: 950 units/hr, 19 mls/hr Documented by: [id number] Cosigned by: [id number] Titration: 03/06/21 07:08 Dose: 950 units/hr, 19 mls/hr Documented by: [id number] Cosigned by: [id number] Titration: 03/05/21 19:22 Dose: 950 units/hr, 19 mls/hr Documented by: [id number] Cosigned by: [id number] Admin: 03/05/21 17:53 Dose: 950 units/hr, 19 mls/hr Documented by: [id number] Cosigned by: [id number] Titration: 03/05/21 17:17 Dose: 950 units/hr, 19 mls/hr Documented by: [id number] Cosigned by: [id number] Admin: 03/05/21 11:54 Dose: Not Given Documented by: [id number] Titration: 03/04/21 19:17 Dose: 950 units/hr, 19 mls/hr Documented by: [id number] Cosigned by: [id number] Admin: 03/04/21 14:58 Dose: 950 units/hr, 19 mls/hr Documented by: [id number] Cosigned by: [id number] Titration: 03/04/21 13:11 Dose: 950 units/hr, 19 mls/hr Documented by: [id number] Cosigned by: [id number] Titration: 03/04/21 08:19 Dose: 950 units/hr, 19 mls/hr Documented by: [id number] Cosigned by: [id number] Titration: 03/04/21 07:14 Dose: 950 units/hr, 19 mls/hr Documented by: [id number] Cosigned by: [id number] Titration: 03/03/21 18:59 Dose: 950 units/hr, 19 mls/hr Documented by: [id number] Cosigned by: [id number] Titration: 03/03/21 16:52 Dose: 950 units/hr, 19 mls/hr Documented by: [id number] Cosigned by: [id number] Admin: 03/03/21 10:32 Dose: 900 units/hr, 18 mls/hr Documented by: [id number] Cosigned by: [id number] Ceftriaxone Sodium 1,000 mg/ (Dextrose) 50 mls @ 100 mls/hr IV Q24H [facility]; Protocol Stop: 03/08/21 14:59 Last Infusion: 03/07/21 16:10 Dose: 0 mls/hr Documented by: [id number] Admin: 03/07/21 15:29 Dose: 100 mls/hr Documented by: [id number] Infusion: 03/06/21 16:40 Dose: 0 mls/hr Documented by: [id number] Admin: 03/06/21 15:59 Dose: 100 mls/hr Documented by: [id number] Piperacillin Sod/Tazobactam (Sod 4.5 gm/ Dextrose) 120 mls @ 200 mls/hr IV NOW ONE; Protocol Stop: 03/08/21 15:05 Last Infusion: 03/08/21 15:33 Dose: 0 mls/hr Documented by: [id number] Admin: 03/08/21 14:33 Dose: 200 mls/hr Documented by: [id number] Piperacillin Sod/Tazobactam (Sod 4.5 gm/ Dextrose) 120 mls @ 30 mls/hr IV Q8H [facility]; Protocol Stop: 03/10/21 19:59 Last Admin: 03/10/21 13:12 Dose: Not Given Documented by: [id number] Infusion: 03/10/21 08:16 Dose: 0 mls/hr Documented by: [id number] Admin: 03/10/21 04:45 Dose: 30 mls/hr Documented by: [id number] Infusion: 03/10/21 00:52 Dose: 0 mls/hr Documented by: [id number] Admin: 03/09/21 20:03 Dose: 30 mls/hr Documented by: [id number] Infusion: 03/09/21 16:02 Dose: 0 mls/hr Documented by: [id number] Admin: 03/09/21 11:55 Dose: 30 mls/hr Documented by: [id number] Infusion: 03/09/21 08:15 Dose: 0 mls/hr Documented by: [id number] Admin: 03/09/21 03:54 Dose: 30 mls/hr Documented by: [id number] Infusion: 03/08/21 22:59 Dose: 0 mls/hr Documented by: [id number] Admin: 03/08/21 19:26 Dose: 30 mls/hr Documented by: [id number] Sodium Chloride (Nss 1000ml) 1,000 mls @ 80 mls/hr IV .[id number] [facility] Stop: 04/09/21 12:14 Last Admin: 03/12/21 07:39 Dose: Not Given Documented by: [id number] Infusion: 03/12/21 07:39 Dose: 0 mls/hr Documented by: [id number] Admin: 03/11/21 19:34 Dose: 80 mls/hr Documented by: [id number] Infusion: 03/11/21 19:34 Dose: 80 mls/hr Documented by: [id number] Infusion: 03/11/21 11:25 Dose: 80 mls/hr Documented by: [id number] Infusion: 03/11/21 08:36 Dose: 0 mls/hr Documented by: [id number] Infusion: 03/11/21 04:37 Dose: 80 mls/hr Documented by: [id number] Infusion: 03/11/21 03:38 Dose: 0 mls/hr Documented by: [id number] Admin: 03/11/21 03:37 Dose: 80 mls/hr Documented by: [id number] Infusion: 03/11/21 02:54 Dose: 80 mls/hr Documented by: [id number] Infusion: 03/10/21 21:00 Dose: 80 mls/hr Documented by: [id number] Infusion: 03/10/21 20:00 Dose: 0 mls/hr Documented by: [id number] Admin: 03/10/21 13:23 Dose: 80 mls/hr Documented by: [id number] Potassium Chloride (K Fausto / Wtr) 10 meq in 100 mls @ 100 mls/hr IV Q1H [facility] Stop: 03/10/21 14:29 Last Infusion: 03/10/21 15:43 Dose: 0 mls/hr Documented by: [id number] Admin: 03/10/21 14:40 Dose: 100 mls/hr Documented by: [id number] Infusion: 03/10/21 14:24 Dose: 100 mls/hr Documented by: [id number] Admin: 03/10/21 13:24 Dose: 100 mls/hr Documented by: [id number] Metronidazole (Flagyl) 500 mg in 100 mls @ 100 mls/hr IV Q8H [facility] Stop: 03/12/21 12:29 Last Infusion: 03/11/21 04:37 Dose: 0 mls/hr Documented by: [id number] Admin: 03/11/21 03:37 Dose: 100 mls/hr Documented by: [id number] Infusion: 03/10/21 21:04 Dose: 0 mls/hr Documented by: [id number] Admin: 03/10/21 20:04 Dose: 100 mls/hr Documented by: [id number] Infusion: 03/10/21 15:42 Dose: 0 mls/hr Documented by: [id number] Admin: 03/10/21 14:41 Dose: 100 mls/hr Documented by: [id number] Vancomycin HCl 1,250 mg/ (Sodium Chloride) 275 mls @ 200 mls/hr IV NOW STA Stop: 03/10/21 14:32 Last Infusion: 03/10/21 15:57 Dose: 0 mls/hr Documented by: [id number] Admin: 03/10/21 14:41 Dose: 200 mls/hr Documented by: [id number] Cefepime HCl 2,000 mg/ Syringe 20 mls @ 5 mls/min IV DAILY@1400 [facility] Stop: 03/12/21 13:59 Last Admin: 03/10/21 14:41 Dose: 5 mls/min Documented by: [id number] Vancomycin HCl 1,000 mg/ (Sodium Chloride) 270 mls @ 200 mls/hr IV DAILY@0800 [facility]; Protocol Stop: 03/13/21 07:29 Last Infusion: 03/11/21 10:25 Dose: 0 mls/hr Documented by: [id number] Admin: 03/11/21 08:35 Dose: 200 mls/hr Documented by: [id number] Lorazepam (Ativan) 1 mg in 2 mls @ 2 mls/min IV Q6H [facility] Stop: 04/10/21 10:59 Last Admin: 03/12/21 16:35 Dose: 2 mls/min Documented by: [id number] Admin: 03/12/21 11:13 Dose: 2 mls/min Documented by: [id number] Admin: 03/12/21 05:35 Dose: 2 mls/min Documented by: [id number] Admin: 03/11/21 23:32 Dose: 2 mls/min Documented by: [id number] Admin: 03/11/21 17:11 Dose: 2 mls/min Documented by: [id number] Admin: 03/11/21 11:15 Dose: 2 mls/min Documented by: [id number] Ioversol (Optiray 320 125ml) 115 ml IV ONCE ONE Stop: 03/01/21 09:17 Last Admin: 03/01/21 09:16 Dose: 115 ml Documented by: [id number] Ioversol (Optiray 320 125ml) 120 ml IV ONCE ONE Stop: 03/03/21 07:17 Last Admin: 03/03/21 07:16 Dose: 120 ml Documented by: [id number] Levothyroxine Sodium (Levothyroxine Sodium 75 Mcg Tablet) 75 mcg PO DAILYBB [facility] Stop: 04/01/21 06:29 Last Admin: 03/11/21 03:38 Dose: Not Given Documented by: [id number] Admin: 03/10/21 06:23 Dose: 75 mcg Documented by: [id number] Admin: 03/09/21 05:46 Dose: 75 mcg Documented by: [id number] Admin: 03/08/21 05:55 Dose: 75 mcg Documented by: [id number] Admin: 03/07/21 05:07 Dose: 75 mcg Documented by: [id number] Admin: 03/06/21 05:09 Dose: 75 mcg Documented by: [id number] Admin: 03/05/21 06:33 Dose: 75 mcg Documented by: [id number] Admin: 03/04/21 07:56 Dose: 75 mcg Documented by: [id number] Admin: 03/03/21 06:30 Dose: Not Given Documented by: [id number] Admin: 03/02/21 06:25 Dose: 75 mcg Documented by: [id number] Miscellaneous (Pending Order [Heparin Drip]) 1 ea N/A Q1H [facility] Stop: 03/31/21 15:59 Last Admin: 03/01/21 18:16 Dose: Not Given Documented by: [id number] Admin: 03/01/21 17:59 Dose: Not Given Documented by: [id number] Morphine Sulfate (Morphine Sulfate 2 Mg/Ml Carp) 2 mg IV Q1H PRN PRN Reason: Pain or air hunger Stop: 03/25/21 10:52 Last Admin: 03/12/21 20:57 Dose: 2 mg Documented by: [id number] Admin: 03/12/21 17:59 Dose: 2 mg Documented by: [id number] Admin: 03/12/21 16:35 Dose: 2 mg Documented by: [id number] Admin: 03/11/21 15:07 Dose: 2 mg Documented by: [id number] Oxycodone HCl (Oxycodone Hcl Ir 5 Mg Tab (Immediate Release)) 5 mg PO Q4H PRN PRN Reason: Pain Stop: 03/21/21 22:40 Last Admin: 03/08/21 23:37 Dose: 5 mg Documented by: [id number] Pravastatin Sodium (Pravastatin Sod 10 Mg Tab) 10 mg PO HS [facility] Stop: 04/02/21 20:59 Last Admin: 03/10/21 20:03 Dose: Not Given Documented by: [id number] Admin: 03/09/21 20:02 Dose: 10 mg Documented by: [id number] Admin: 03/08/21 19:26 Dose: 10 mg Documented by: [id number] Admin: 03/07/21 21:31 Dose: 10 mg Documented by: [id number] Admin: 03/06/21 21:17 Dose: 10 mg Documented by: [id number] Admin: 03/05/21 20:53 Dose: 10 mg Documented by: [id number] Admin: 03/04/21 20:21 Dose: 10 mg Documented by: [id number] Admin: 03/03/21 20:27 Dose: 10 mg Documented by: [id number] Warfarin Sodium (Warfarin Sod 5 Mg Tab) 5 mg PO NOW ONE Stop: 03/05/21 08:39 Last Admin: 03/05/21 09:33 Dose: 5 mg Documented by: [id number] Discharge Plan Visit Data Chief Complaint: Dizziness Stated Complaint: LIGHTHEADED;WEAKNESS;FALL;BILAT FOOT PAIN ED Provider: Dennis Sánchez Discharge Problem: GI bleed, Acute blood loss anemia, Acute pulmonary embolism, Elevated troponin Patient Disposition: Admitted As Inpatient Discharge Instructions Interventions: ED Discharge Assessment Last Done: 03/01/21 19:59 Discharge Problem: GI bleed Qualifiers: GI bleed type/associated pathology: unspecified gastrointestinal hemorrhage type Qualified Code(s): K92.2 - Gastrointestinal hemorrhage, unspecified Acute pulmonary embolism Qualifiers: Pulmonary embolism type: unspecified Acute cor pulmonale presence: unspecified Qualified Code(s): I26.99 - Other pulmonary embolism without acute cor pulmonale
== END 2021-03-13 00:09 | disposition expired | DRG 175 ==
LOC: ED 06:51 → SUATTDRO 10:44 → EDINP 10:44 → 2S 20:00 → 1E 03-03 07:49 → 3E 03-11 11:18